=== PATIENT | male | born 1960 | race Caucasian/White ===

== ENCOUNTER → 2017-07-26 11:39 | Outpatient (POV) | payer OTHER, SELFPAY | PROVIDERS: Family Provider Internal Medicine Adolescent Medicine; PCP Internal Medicine Adolescent Medicine; Visit Provider Internal Medicine | DX: Z00.00 Encounter for general adult medical examination without abnormal findings (principal) ==

== ENCOUNTER → 2017-09-27 08:38 | Outpatient (REF) | payer OTHER, SELFPAY ==
[2017-09-27 13:21] LABS: Basophils # 0.1 K/mm3 (0-0.2); Basophils % 0.6 % (0.1-2.0); Eosinophils # 0.2 K/mm3 (0.0-0.4); Eosinophils % 1.8 % (0.1-12.0); Hematocrit 45.3 % (42.0-52.0); Hemoglobin 14.7 g/dL (14.1-18.0); Lymphocytes # 1.9 K/mm3 (0.7-4.5); Lymphocytes % 23.3 K/mm3 (10-50); Mean Corpuscular HGB Conc 32.5 g/dL (31.8-35.4); Mean Corpuscular Hemoglobin 28.9 pg (27.0-31.2); Mean Corpuscular Volume 89.1 fl (80-94); Mean Platelet Volume 9.2 fl (7.4-10.4); Monocytes # 0.6 K/mm3 (0.1-1.0); Neutrophils # 5.6 K/mm3 (1.8-7.8); Neutrophils % 67.4 % (37.0-80.0); Platelet Count 238 K/mm3 (142-424); Red Blood Count 5.09 M/mm3 (4.60-6.20); Red Cell Distribution Width 13.4 % (11.5-17.5); White Blood Count 8.3 K/mm3 (4.8-10.8)
[2017-09-27 14:12] LABS: Alanine Aminotransferase 44 U/L (12-78); Albumin Level 3.8 gm/dL (3.4-5.0); Albumin/Globulin Ratio 1.1 (1.1-1.8); Alkaline Phosphatase 92 U/L (46-116); Aspartate Amino Transferase 23 U/L (15-37); Bilirubin,Total 0.2 mg/dL (0.2-1.0); Blood Urea Nitrogen 23 mg/dL (7-18); Calcium 9.8 mg/dL (8.5-10.1); Carbon Dioxide 27 mmol/L (21.0-32.0); Chloride 105 mmol/L (98-107); Chol/HDL Ratio 4.9 (1-3.5); Cholesterol 205 mg/dL (140-200); Creatinine,Serum 1.16 mg/dL (0.70-1.30); Estimated Glomerular Filt Rate 65 ml/min (>60); Free T4 (Free Thyroxine) 0.95 ng/dl (0.76-1.46); GFR (African American) 79 ML/MIN (>60); Globulin 3.5 gm/dl (1.3-3.2); Glucose 91 mg/dL (74-106); HDL Cholesterol 42 mg/dL (27-67); LDL Cholesterol 134 mg/dL (0-130); Sodium 143 mmol/L (136-145); Total Protein,Serum 7.3 gm/dL (6.4-8.2); Triglycerides 143 mg/dL (30-200); VLDL Cholesterol 29 mg/dL (0-40)
[2017-09-29 06:23] LABS: PSA, Free 0.05 ng/mL; Prostate Specific Ag 0.1 ng/mL (0.0-4.0); Vitamin D 25 Hydroxy 12.4 ng/mL (30.0-100.0)
== END ==
LOC: LAB 08:38
PROVIDERS: Visit Provider Nurse Practitioner Family
DX: R60.1 Generalized edema (principal); R06.02 Shortness of breath; R53.83 Other fatigue
CPT/HCPCS: 80053; 80061; 82652; 83880; 84153; 84154; 84439; 84443; 85025

== ENCOUNTER → 2017-10-06 13:01 | Outpatient (CLI) | payer OTHER, SELFPAY ==
--- NOTE | 2017-10-06 13:06 | CA_ITS ---
PROCEDURE: 2-D M-mode and color Doppler study INDICATIONS FOR THE TEST: Chest pain COPD Heart Murmur Tobacco SmokingEX Palpitations Fatigue Syncope EdemaX Hypertension Diabetes Mellitus Rheumatic Fever SOBXDOEXObesityXHyperlipidemia Family History HD Additional History CHF PATIENT INFORMATION HEIGHT: 65 WEIGHT:245 GENDER: Male B/P:140/70 2-D/M-MODE INTERPRETATION: 2-D MEASUREMENTS OBSERVED VALUES IN CMS Right Ventricular Dimension (RVDd) 1.6 Interventricular Septum (Thickness)(IVsd) 1.0 Left Ventricular Internal Dimensions(LVIDd) 4.6 Left Ventricular Posterior Wall (Thickness)(LVPWd) 1.2 Aortic Root 3.2 Aortic Cusp Separation 1.9 Left Atrial Dimensions (LAD) 4.3 2D 1. Left Atrium is mildly enlarged, left ventricle is normal size, left ventricle wall thickness is upper limit of the normal, visually estimated ejection fraction 55-60% with no obvious regional wall motion abnormality. 2. The right atrium and right ventricle are normal size and contractility. 3. The aortic valve is minimally thickened and fibrosed. 4. The mitral and tricuspid valve leaflets are minimally thickened. 5. The pulmonic valve is poorly visualized. 6. No significant pericardial effusion noted. DOPPLER INTERROGATION: Doppler interrogation of the aortic, mitral and tricuspid valvular presence of mild mitral and tricuspid regurgitation, tricuspid regurgitant jet velocity insufficient for calculation of the right ventricular systolic pressure, grade 1 diastolic dysfunction seen without tissue Doppler evidence of raised left atrial pressure. CONCLUSION: 1. Mildly enlarged left atrium, normal left ventricular size, visually estimated ejection fraction 55-60% with no obvious regional wall motion abnormality, grade 1 diastolic dysfunction seen without tissue Doppler evidence of raised left atrial pressure. 2. Mild mitral and tricuspid regurgitation 3. No significant pericardial effusion noted.
[2017-10-06 15:06] LABS: Anion Gap 15.1 mEq/L (5-15); Blood Urea Nitrogen 21 mg/dL (7-18); Carbon Dioxide 27 mmol/L (21.0-32.0); Chloride 101 mmol/L (98-107); Creatinine,Serum 1.23 mg/dL (0.70-1.30); Estimated Glomerular Filt Rate 61 ml/min (>60); GFR (African American) 73 ML/MIN (>60); Glucose 103 mg/dL (74-106); Potassium 4.1 mmoL/L (3.5-5.1); Sodium 139 mmol/L (136-145)
== END ==
PROVIDERS: Family Provider Internal Medicine Adolescent Medicine; PCP Nurse Practitioner Family; Visit Provider Internal Medicine Cardiovascular Disease
DX: I10 Essential (primary) hypertension (principal)
CPT/HCPCS: 36415; 80048; 93306

== ENCOUNTER → 2017-10-20 09:31 | Outpatient (CLI) | payer OTHER, SELFPAY ==
[2017-10-20 10:15] LABS: Anion Gap 15.9 mEq/L (5-15); Blood Urea Nitrogen 28 mg/dL (7-18); Carbon Dioxide 24 mmol/L (21.0-32.0); Chloride 102 mmol/L (98-107); Creatinine,Serum 1.36 mg/dL (0.70-1.30); Estimated Glomerular Filt Rate 54 ml/min (>60); GFR (African American) 65 ML/MIN (>60); Glucose 138 mg/dL (74-106); Potassium 3.9 mmoL/L (3.5-5.1); Sodium 138 mmol/L (136-145)
== END ==
PROVIDERS: Family Provider Internal Medicine Adolescent Medicine; PCP Nurse Practitioner Family; Visit Provider Internal Medicine Cardiovascular Disease
DX: I50.20 Unspecified systolic (congestive) heart failure (principal); I10 Essential (primary) hypertension; R60.9 Edema, unspecified; R06.00 Dyspnea, unspecified; F17.200 Nicotine dependence, unspecified, uncomplicated
CPT/HCPCS: 36415; 80048

== ENCOUNTER → 2017-10-27 09:20 | Outpatient (CLI) | payer OTHER, SELFPAY ==
[2017-10-27 10:25] LABS: Anion Gap 15.5 mEq/L (5-15); Blood Urea Nitrogen 33 mg/dL (7-18); Calcium 9.4 mg/dL (8.5-10.1); Carbon Dioxide 27 mmol/L (21.0-32.0); Chloride 104 mmol/L (98-107); Creatinine,Serum 1.41 mg/dL (0.70-1.30); Estimated Glomerular Filt Rate 52 ml/min (>60); GFR (African American) 63 ML/MIN (>60); Glucose 115 mg/dL (74-106); Potassium 4.5 mmoL/L (3.5-5.1); Sodium 142 mmol/L (136-145)
== END ==
PROVIDERS: Visit Provider Physician Assistant
DX: I50.20 Unspecified systolic (congestive) heart failure (principal); R06.00 Dyspnea, unspecified; R60.9 Edema, unspecified; F17.200 Nicotine dependence, unspecified, uncomplicated
CPT/HCPCS: 36415; 80048

== ENCOUNTER → 2017-11-03 09:08 | Outpatient (CLI) | payer OTHER, SELFPAY ==
[2017-11-03 10:24] LABS: Anion Gap 12.5 mEq/L (5-15); Blood Urea Nitrogen 29 mg/dL (7-18); Calcium 9.2 mg/dL (8.5-10.1); Carbon Dioxide 28 mmol/L (21.0-32.0); Chloride 104 mmol/L (98-107); Creatinine,Serum 1.31 mg/dL (0.70-1.30); Estimated Glomerular Filt Rate 56 ml/min (>60); GFR (African American) 68 ML/MIN (>60); Glucose 105 mg/dL (74-106); Potassium 4.5 mmoL/L (3.5-5.1); Sodium 140 mmol/L (136-145)
== END ==
PROVIDERS: Visit Provider Physician Assistant
DX: R06.00 Dyspnea, unspecified (principal); R60.9 Edema, unspecified; I50.20 Unspecified systolic (congestive) heart failure
CPT/HCPCS: 36415; 80048

== ENCOUNTER → 2018-01-24 11:23 | Outpatient (POV) | payer OTHER, SELFPAY | PROVIDERS: Family Provider Internal Medicine Adolescent Medicine; PCP Nurse Practitioner Family; Visit Provider Internal Medicine | DX: Z00.00 Encounter for general adult medical examination without abnormal findings (principal) ==

== ENCOUNTER → 2018-02-23 09:39 | Outpatient (CLI) | payer OTHER, SELFPAY ==
[2018-02-23 10:19] LABS: Anion Gap 12.5 mEq/L (5-15); Blood Urea Nitrogen 17 mg/dL (7-18); Calcium 9.2 mg/dL (8.5-10.1); Carbon Dioxide 29 mmol/L (21.0-32.0); Chloride 105 mmol/L (98-107); Creatinine,Serum 1.22 mg/dL (0.70-1.30); Estimated Glomerular Filt Rate 61 ml/min (>60); GFR (African American) 74 ML/MIN (>60); Glucose 98 mg/dL (74-106); Potassium 4.5 mmoL/L (3.5-5.1); Sodium 142 mmol/L (136-145)
== END ==
PROVIDERS: PCP Nurse Practitioner Family; Visit Provider Urology
DX: I50.22 Chronic systolic (congestive) heart failure (principal); R06.09 Other forms of dyspnea; R60.0 Localized edema
CPT/HCPCS: 36415; 80048

== ENCOUNTER → 2018-02-28 13:05 | Outpatient (CLI) | payer OTHER, SELFPAY ==
--- NOTE | 2018-02-28 14:26 | CT_ITS ---
CT chest wo con HISTORY: Dyspnea, ITS.REASON: DYSPNEA, PLEURAL PLAQUE WITH PRESENCE OF ASBESTOS ORDERING PHYSICIAN: Ankur Warren MD PATIENT AGE: 57 years COMPARISON: 08/25/2016 Technique: Axial images obtained with sagittal and coronal reformats. All CT scans at the facility use one or more dose reduction, viz: automated exposure control, ma/kV adjustment per patient size (including targeted exams where dose is matched to indication, i.e. head), or iterative reconstruction technique. FINDINGS: Scattered small nodes present in the mediastinum not significantly changed. The largest node is in the right paratracheal region measuring 1.5 x 1.1 cm. There is diffuse coarsening of the bronchovascular markings with scattered areas of fibrosis with dense calcified pleural plaque in the right lung base posteriorly associated with underlying parenchymal fibrosis/scarring not significantly changed. Calcified granuloma is present in the superior segment of the left lower lobe. No effusions. Degenerative changes once again noted in the thoracic spine. No central obstructing lesions. There is a small area of outpouching of the right mainstem bronchus inferiorly just proximal to the mainstem bronchus bifurcation. This measures approximately 1 cm and is not significantly changed. There is bilateral gynecomastia. Upper abdominal images show opacities within the gallbladder consistent with cholelithiasis and/or sludge. IMPRESSION: 1. Overall stable CT appearance of the chest. No change in the prominent calcified pleural plaque with associated scarring with chronic interstitial changes 2. No change mildly prominent mediastinal lymph nodes. 3. Small bronchial diverticulum on the right at the distal and inferior aspect of the right mainstem bronchus. 4. Cholelithiasis
[2018-02-28 16:25] VITALS: BP 150/85; BP 160/95; PULSE 107; PULSE 93; RESP 18; RESP 20; O2SAT 94; O2SAT 95
[2018-02-28 16:28] VITALS: PULSE 93; PULSE 95
== END ==
PROVIDERS: Family Provider Internal Medicine Adolescent Medicine; PCP Nurse Practitioner Family; Visit Provider Internal Medicine
DX: R06.02 Shortness of breath (principal); R91.8 Other nonspecific abnormal finding of lung field; J42 Unspecified chronic bronchitis; J92.0 Pleural plaque with presence of asbestos
CPT/HCPCS: 71250; 94060; 94618; 94640; 94727; 94729

== ENCOUNTER → 2018-07-18 08:58 | Outpatient (POV) | payer OTHER, SELFPAY | PROVIDERS: Visit Provider Internal Medicine | DX: Z00.00 Encounter for general adult medical examination without abnormal findings (principal) ==

== ENCOUNTER → 2018-08-01 10:01 | Outpatient (CLI) | payer OTHER, SELFPAY ==
[2018-08-01 14:51] LABS: Anion Gap 15.3 mEq/L (5-15); Blood Urea Nitrogen 24 mg/dL (7-18); Calcium 9.9 mg/dL (8.5-10.1); Carbon Dioxide 28 mmol/L (21.0-32.0); Chloride 96 mmol/L (98-107); Creatinine,Serum 1.24 mg/dL (0.70-1.30); Estimated Glomerular Filt Rate 60 ml/min (>60); GFR (African American) 72 ML/MIN (>60); Glucose 135 mg/dL (74-106); Potassium 4.3 mmoL/L (3.5-5.1); Sodium 135 mmol/L (136-145)
== END ==
PROVIDERS: Nurse Practitioner Family; Visit Provider Internal Medicine
DX: I10 Essential (primary) hypertension (principal); I25.10 Atherosclerotic heart disease of native coronary artery without angina pectoris; I50.20 Unspecified systolic (congestive) heart failure; R06.00 Dyspnea, unspecified
CPT/HCPCS: 36415; 80048

== ENCOUNTER → 2018-08-15 10:00 | Outpatient (CLI) | payer OTHER, SELFPAY ==
[2018-08-15 10:39] LABS: Basophils % 0.4 % (0.1-2.0); Eosinophils # 0.2 K/mm3 (0.0-0.4); Hematocrit 42.1 % (42.0-52.0); Hemoglobin 13.9 g/dL (14.1-18.0); Lymphocytes # 2.3 K/mm3 (0.7-4.5); Lymphocytes % 24.2 % (10-50); Mean Corpuscular Hemoglobin 29.2 pg (27.0-31.2); Mean Corpuscular Volume 88.7 fl (80-94); Mean Platelet Volume 8.4 fl (7.4-10.4); Monocytes # 0.6 K/mm3 (0.1-1.0); Monocytes % 5.7 % (1.7-9.3); Neutrophils # 6.5 K/mm3 (1.8-7.8); Neutrophils % 67.8 % (37.0-80.0); Platelet Count 252 K/mm3 (142-424); Red Blood Count 4.74 M/mm3 (4.60-6.20); Red Cell Distribution Width 13.5 % (11.5-17.5); White Blood Count 9.7 K/mm3 (4.8-10.8)
[2018-08-15 12:25] LABS: Anion Gap 14.5 mEq/L (5-15); Blood Urea Nitrogen 21 mg/dL (7-18); Calcium 9.4 mg/dL (8.5-10.1); Carbon Dioxide 25 mmol/L (21.0-32.0); Chloride 104 mmol/L (98-107); Creatinine,Serum 1.14 mg/dL (0.70-1.30); Estimated Glomerular Filt Rate 66 ml/min (>60); GFR (African American) 80 ML/MIN (>60); Glucose 111 mg/dL (74-106); Potassium 4.5 mmoL/L (3.5-5.1); Sodium 139 mmol/L (136-145)
== END ==
PROVIDERS: PCP Emergency Medicine; Visit Provider Nurse Practitioner Family
DX: I25.10 Atherosclerotic heart disease of native coronary artery without angina pectoris (principal); R06.00 Dyspnea, unspecified; R06.02 Shortness of breath; R25.2 Cramp and spasm
CPT/HCPCS: 36415; 80048; 83880; 85025

== ENCOUNTER → 2018-09-13 06:20 | Outpatient (CLI) | payer OTHER, SELFPAY ==
--- NOTE | 2018-09-13 06:22 | CA_ITS ---
PROCEDURE: 2-D M-mode and color Doppler study INDICATIONS FOR THE TEST: Chest painX COPDX Heart Murmur Tobacco SmokingEX Palpitations Fatigue Syncope Edema Hypertension Diabetes Mellitus Rheumatic Fever SOBXDOEXObesityXHyperlipidemiaX Family History HD Additional History PATIENT INFORMATION HEIGHT: 65 WEIGHT:254 GENDER: Male B/P:143/83 2-D/M-MODE INTERPRETATION: 2-D MEASUREMENTS OBSERVED VALUES IN CMS Right Ventricular Dimension (RVDd) 2.0 Interventricular Septum (Thickness)(IVsd) 1.1 Left Ventricular Internal Dimensions(LVIDd) 3.8 Left Ventricular Posterior Wall (Thickness)(LVPWd) 1.1 Aortic Root 3.7 Aortic Cusp Separation 2.1 Left Atrial Dimensions (LAD) 3.3 2D 1. Left atrium is mildly enlarged, left ventricle is normal size, mild concentric left ventricular hypertrophy, visually estimated ejection fraction 55% with no regional wall motion abnormality. 2. The right atrium and right ventricle are mildly enlarged with normal contractility. 3. The aortic valve is minimally thickened and fibrosed. 4. The mitral and tricuspid valve are grossly normal. 5. The pulmonic valve is poorly present. 6. No significant pericardial effusion noted. DOPPLER INTERROGATION: Doppler interrogation of the aortic, mitral and tricuspid valvular presence of mild mitral and tricuspid regurgitation, tricuspid regurgitation jet velocity is inadequate for calculation of the right ventricular systolic pressure, grade 1 diastolic dysfunction seen with tissue Doppler evidence of raised left atrial pressure. CONCLUSION: 1. Mild biatrial enlargement, normal left ventricular size, mild concentric left ventricular hypertrophy, visually estimated ejection fraction 55% with no regional wall motion abnormality, grade 1 diastolic dysfunction seen with tissue Doppler evidence of raised left atrial pressure. 2. Mildly enlarged right ventricle with normal contractility. 3. Mild mitral and tricuspid regurgitation 4. No significant pericardial effusion noted.
--- NOTE | 2018-09-13 06:24 | NM_ITS ---
CARDIOLITE SPECT MYOCARDIAL PERFUSION LEXISCAN, REST AND STRESS: [facility] REVIEW QGS EF AND WALL MOTION EVALUATION: QPS - PERFUSION EVALUATION HISTORY: Chest pain, SOB, Family history DOSE: 10.06 mCi technetium 99m mibi intravenously at rest followed by 32.9 mCi technetium 99m mibi following the intravenous ministration of 0.4 mg of Lexiscan. Resting blood pressure is 132/72. Stress blood pressure 112/66. FINDINGS: Ejection fraction is calculated to be 72%. Uniform myocardial activity at both stress and rest gated images calculated ejection fraction of 72% with normal wall motion IMPRESSION: No scintigraphic evidence of Lexiscan-induced myocardial ischemia normal ejection fraction wall motion
--- NOTE | 2018-09-13 08:09 | HMH.ITSHM ---
Current Home Medications as stated by this patient Rony Vargas or senior sales representative. []SPIRONOLACTONE OMEPRAZOLE FUROSEMIDE ALFOZOSIN
== END ==
PROVIDERS: PCP Emergency Medicine; Visit Provider Internal Medicine
DX: I25.10 Atherosclerotic heart disease of native coronary artery without angina pectoris (principal); R06.00 Dyspnea, unspecified; R06.01 Orthopnea; R07.89 Other chest pain
CPT/HCPCS: 78452; 93017; 93306; A9502; J2785

== ENCOUNTER → 2018-09-20 11:44 | Outpatient (CLI) | payer OTHER, SELFPAY ==
[2018-09-20 12:43] LABS: Alanine Aminotransferase 46 U/L (12-78); Albumin Level 3.7 gm/dL (3.4-5.0); Alkaline Phosphatase 101 U/L (46-116); Aspartate Amino Transferase 22 U/L (15-37); Bilirubin,Direct 0.1 mg/dL (0.0-0.2); Bilirubin,Indirect 0.3 mg/dL (0.0-0.9); Bilirubin,Total 0.4 mg/dL (0.2-1.0); Chol/HDL Ratio 5.1 (1-3.5); Cholesterol 169 mg/dL (140-200); HDL Cholesterol 33 mg/dL (27-67); LDL Cholesterol 106 mg/dL (0-130); Total Protein,Serum 7.2 gm/dL (6.4-8.2); Triglycerides 151 mg/dL (30-200); VLDL Cholesterol 30 mg/dL (0-40)
== END ==
PROVIDERS: Visit Provider Urology
DX: I10 Essential (primary) hypertension (principal); I50.22 Chronic systolic (congestive) heart failure; R06.02 Shortness of breath; R60.0 Localized edema; F17.200 Nicotine dependence, unspecified, uncomplicated
CPT/HCPCS: 36415; 80061; 80076

== ENCOUNTER → 2019-01-09 10:35 | Outpatient (POV) | payer OTHER, SELFPAY | PROVIDERS: Visit Provider Internal Medicine | DX: Z00.00 Encounter for general adult medical examination without abnormal findings (principal) ==

== ENCOUNTER → 2019-01-16 12:03 | Outpatient (CLI) | payer OTHER, SELFPAY ==
--- NOTE | 2019-01-16 12:13 | XR_ITS ---
PROCEDURE: XR CHEST 2V CLINICAL HISTORY: s Shortness of breath COMPARISON: CHESTWO CT chest wo con from 02/28/2018 FINDINGS: The cardiomediastinal silhouette and pulmonary vascularity are within normal limits. There is consolidation in the right lower lobe consistent with pneumonia with some chronic change in the right lower lobe is well. Calcified granuloma is present in the left upper lobe. No acute bony abnormalities. IMPRESSION: Right lower lobe pneumonia Dictated by: Pablito Dailey MD 01/16/2019 12:39 Signed by: <Electronically signed by Pablito Dailey MD in [place]> 01/16/2019 12:39
[2019-01-16 13:33] LABS: Anion Gap 15.9 mEq/L (5-15); Blood Urea Nitrogen 24 mg/dL (7-18); Calcium 9.5 mg/dL (8.5-10.1); Carbon Dioxide 26 mmol/L (21.0-32.0); Chloride 96 mmol/L (98-107); Creatinine,Serum 1.33 mg/dL (0.70-1.30); Estimated Glomerular Filt Rate 55 ml/min (>60); GFR (African American) 67 ML/MIN (>60); Glucose 314 mg/dL (74-106); Potassium 3.9 mmoL/L (3.5-5.1); Sodium 134 mmol/L (136-145)
== END ==
PROVIDERS: PCP Emergency Medicine; Visit Provider Urology
DX: R00.0 Tachycardia, unspecified (principal); R06.00 Dyspnea, unspecified; R60.9 Edema, unspecified; I25.10 Atherosclerotic heart disease of native coronary artery without angina pectoris
CPT/HCPCS: 36415; 71046; 80048; 83880

== ENCOUNTER → 2019-03-08 09:46 | Outpatient (CLI) | payer OTHER, SELFPAY ==
[2019-03-08 12:00] LABS: Prostate Specific Ag Screen 0.2 ng/mL (0.0-4.0)
== END ==
PROVIDERS: Visit Provider Urology
DX: Z12.5 Encounter for screening for malignant neoplasm of prostate (principal)
CPT/HCPCS: 36415; G0103

== ENCOUNTER → 2019-03-12 13:25 | Outpatient (CLI) | payer OTHER, SELFPAY ==
[2019-03-12 13:39] LABS: Basophils % 0.4 % (0.1-2.0); Eosinophils # 0.2 K/mm3 (0.0-0.4); Eosinophils % 2.7 % (0.1-12.0); Hematocrit 41.9 % (42.0-52.0); Hemoglobin 13.8 g/dL (14.1-18.0); Lymphocytes # 1.9 K/mm3 (0.7-4.5); Lymphocytes % 23.1 % (10-50); Mean Corpuscular HGB Conc 32.9 g/dL (31.8-35.4); Mean Corpuscular Hemoglobin 29.4 pg (27.0-31.2); Mean Corpuscular Volume 89.3 fl (80-94); Monocytes # 0.6 K/mm3 (0.1-1.0); Monocytes % 7.2 % (1.7-9.3); Neutrophils # 5.4 K/mm3 (1.8-7.8); Neutrophils % 66.7 % (37.0-80.0); Platelet Count 242 K/mm3 (142-424); Red Blood Count 4.69 M/mm3 (4.60-6.20); Red Cell Distribution Width 12.9 % (11.5-17.5); White Blood Count 8.1 K/mm3 (4.8-10.8)
[2019-03-12 14:20] LABS: Alanine Aminotransferase 34 U/L (12-78); Albumin Level 3.7 gm/dL (3.4-5.0); Albumin/Globulin Ratio 1.2 (1.1-1.8); Alkaline Phosphatase 137 U/L (46-116); Anion Gap 17.2 mEq/L (5-15); Aspartate Amino Transferase 21 U/L (15-37); Bilirubin,Total 0.3 mg/dL (0.2-1.0); Blood Urea Nitrogen 21 mg/dL (7-18); Calcium 9.4 mg/dL (8.5-10.1); Carbon Dioxide 24 mmol/L (21.0-32.0); Chloride 96 mmol/L (98-107); Chol/HDL Ratio 4.1 (1-3.5); Cholesterol 127 mg/dL (140-200); Creatinine,Serum 1.24 mg/dL (0.70-1.30); Estimated Glomerular Filt Rate 60 ml/min (>60); GFR (African American) 72 ML/MIN (>60); Globulin 3.2 gm/dl (1.3-3.2); HDL Cholesterol 31 mg/dL (27-67); LDL Cholesterol 62 mg/dL (0-130); Potassium 4.2 mmoL/L (3.5-5.1); Sodium 133 mmol/L (136-145); T4 (Thyroxine) 9.2 ug/dl (4.7-13.3); Thyroid Stimulating Hormone 3.14 uIU/ml (0.358-3.740); Total Protein,Serum 6.9 gm/dL (6.4-8.2); Triglycerides 170 mg/dL (30-200); VLDL Cholesterol 34 mg/dL (0-40)
[2019-03-12 14:30] LABS: Glucose 405 mg/dL (74-106)
[2019-03-12 14:35] LABS: Hemoglobin A1C 11.7 % (0.0-7.0)
[2019-03-14 08:21] LABS: Vitamin D 25 Hydroxy 37.6 ng/mL (30.0-100.0)
== END ==
PROVIDERS: Visit Provider Nurse Practitioner Family
DX: R68.2 Dry mouth, unspecified (principal); R73.9 Hyperglycemia, unspecified
CPT/HCPCS: 80053; 80061; 82652; 83036; 84436; 84443; 85025

== ENCOUNTER → 2019-03-16 14:21 | Outpatient (CLI) | payer OTHER, SELFPAY ==
[2019-03-18 06:47] LABS: Creatinine, Urine 53.3 mg/dL (Not Estab.); Microalbumin, Urine 37.8 ug/mL (Not Estab.)
== END ==
PROVIDERS: Visit Provider Nurse Practitioner Family
DX: E11.9 Type 2 diabetes mellitus without complications (principal); Z79.84 Long term (current) use of oral hypoglycemic drugs
CPT/HCPCS: 82043; 82570

== ENCOUNTER → 2019-03-23 08:24 | Outpatient (CLI) | payer OTHER, SELFPAY ==
--- NOTE | 2019-03-23 08:27 | CT_ITS ---
PROCEDURE: CT LUNG SCREENING CLINICAL INDICATION: H/O NICOTINE DEPENDENCE Nine pack-year smoking history, asymptomatic for lung cancer COMPARISON: CHESTWO CT chest wo con from 02/28/2018 TECHNIQUE: The exam was performed on a GE Light Speed [address] scanner using 2.90 mGy CTDI. A low dose helical CT CHEST was performed on a multi-detector scanner. All CT scans at the facility use one or more dose reduction, viz: automated exposure control, ma/kV adjustment per patient size (including targeted exams where dose is matched to indication, i.e. head), or iterative reconstruction technique. The LDCT was performed in a facility that meets the criteria for the screening program. Data regarding this exam was submitted to ACR which is an approved registry. The order for this exam indicates that it came as a result of a lung cancer screening counseling shard decision-making visit that included all the elements required of such a visit including smoking cessation. The radiologist interpreting this exam meets the CMS criteria for the LDCT lung cancer screening program. The exam is reported using the Lung-RADS classification scale and reported to the ACR registry. NOTE: This study was performed for the specific purposes of lung cancer screening and is not an alternative to diagnostic chest CT. RADIATION DOSE: CTDI vol(CT dose Index-volume) = 2.90mG DLP (Dose Length Product) = 96.53 mGcm FINDINGS: COPD with evidence of old granulomatous disease and prominent interstitium. There is calcification of the lower lobe posteriorly on the right inferiorly with scarring in the right lung base. Calcified granuloma is present in the left upper lobe. Small bronchial diverticulum of the bronchus intermedius on the right unchanged. OTHER FINDINGS: Small mediastinal lymph nodes are present not significantly changed IMPRESSION: Lung rads category 2 benign findings. No significant change. No change right-sided pleural calcification with scarring and mild prominence of interstitium the COPD. Recommend annual LDCT screening Dictated by: Pablito Dailey MD 03/24/2019 09:27 Electronically signed by Pablito Dailey MD in [place] 04/01/2019 07:24
== END ==
PROVIDERS: PCP Emergency Medicine; Visit Provider Internal Medicine
DX: Z87.891 Personal history of nicotine dependence (principal); Z12.2 Encounter for screening for malignant neoplasm of respiratory organs

== ENCOUNTER → 2019-03-27 08:48 | Outpatient (CLI) | payer OTHER, SELFPAY ==
[2019-03-27 12:09] VITALS: BMI 40.6
[2019-03-27 13:04] VITALS: BMI 40.6
--- NOTE | 2019-03-27 14:18 | DIET.NUTRFU ---
Outpatient nutritional assessment completed by Evelina has been completed under my supervision.
== END ==
PROVIDERS: PCP Nurse Practitioner Family; Visit Provider Nurse Practitioner Family
DX: Z71.3 Dietary counseling and surveillance (principal); E11.9 Type 2 diabetes mellitus without complications
CPT/HCPCS: 97802

== ENCOUNTER → 2019-05-18 09:45 | Outpatient (CLI) | payer OTHER, SELFPAY | PROVIDERS: PCP Emergency Medicine; Visit Provider Nurse Practitioner Family | DX: R06.02 Shortness of breath (principal) | CPT/HCPCS: 94060; 94618 ==

== ENCOUNTER → 2019-06-04 08:00 | Outpatient (CLI) | payer OTHER, SELFPAY ==
--- NOTE | 2019-06-04 08:01 | CA_ITS ---
APPROVED REPORT Silo Painter: LAURIE Laterality: Bilateral Study Quality: Good Indications: dizziness HTN HLP DM EX SMOKER Doppler Spectral Velocity Analysis dICA (R) 87.20/30.80 cm/s dICA (L) 121.50/33.90 cm/s Ed (R) 57.40/19.50 cm/s Ed (L) 110.30/46.00 cm/s pICA (R) 69.00/15.00 cm/s pICA (L) 79.30/26.90 cm/s dCCA (R) 82.20/21.50 cm/s dCCA (L) 66.70/22.60 cm/s pCCA (R) 59.90/11.50 cm/s pCCA (L) 94.40/24.60 cm/s Vert (R) 52.30/11.30 cm/s Vert (L) 67.50/26.00 cm/s ICA/CCA 1.06 ICA/CCA 1.82 Findings Duplex evaluation demonstrates stenosis of the right proximal internal carotid artery <20% with PSV <140 cm/sec, EDV <100 cm/sec, and IC/CC Ratio <4.0.The left carotid arterial system appeared to be normal without stenosis of the bulb or internal carotid artery. Antegrade flow seen bilateral vertebral arteries. Conclusion No increased velocities to suggest hemodynamically significant stenosis in either internal carotid artery. Electronically signed by : Pablito Dailey MD 06/04/2019 16:44:31
--- NOTE | 2019-06-04 08:01 | US_ITS ---
APPROVED REPORT Exam Type: Lower Extremity Segmental Pressures Youth Director: Radha Castellanos RDCS Indications Claudication: History of Smoking Risk Factors Hypertension Diabetes History of Smoking Pressures/Indices Right Indices Left Indices Brachial 108.00 mmHg Brachial 100.00 mmHg High Thigh 132.00 mmHg High Thigh 119.00 mmHg Calf 121.00 mmHg Calf 114.00 mmHg Ankle(PT) 124.00 mmHg Ankle(PT) 102.00 mmHg Ankle(DP) 108.00 mmHg Ankle(DP) 112.00 mmHg Digit 89.00 mmHg Digit 103.00 mmHg Findings R ANNIA 1.2 L ANNIA .9 R TBI .82 L TBI 1.0 NORMAL PULSES AND WAVEFORMS Conclusion Normal appearing resting noninvasive lower extremity arterial study. Electronically signed by : Pablito Dailey MD 06/04/2019 16:43:40
== END ==
PROVIDERS: PCP Emergency Medicine; Visit Provider Urology
DX: I73.9 Peripheral vascular disease, unspecified (principal); I25.10 Atherosclerotic heart disease of native coronary artery without angina pectoris; R42 Dizziness and giddiness
CPT/HCPCS: 93880; 93923

== ENCOUNTER → 2019-06-14 14:19 | Outpatient (CLI) | payer OTHER, SELFPAY ==
[2019-06-14 14:47] LABS: Basophils % 0.4 % (0.1-2.0); Eosinophils # 0.2 K/mm3 (0.0-0.4); Eosinophils % 1.9 % (0.1-12.0); Hemoglobin 12.7 g/dL (14.1-18.0); Lymphocytes # 2.1 K/mm3 (0.7-4.5); Lymphocytes % 18.9 % (10-50); Mean Corpuscular HGB Conc 31.1 g/dL (31.8-35.4); Mean Corpuscular Hemoglobin 27.7 pg (27.0-31.2); Mean Corpuscular Volume 89.1 fl (80-94); Mean Platelet Volume 9.9 fl (7.4-10.4); Monocytes # 0.5 K/mm3 (0.1-1.0); Monocytes % 4.8 % (1.7-9.3); Neutrophils # 8.4 K/mm3 (1.8-7.8); Platelet Count 315 K/mm3 (142-424); White Blood Count 11.3 K/mm3 (4.8-10.8)
[2019-06-14 15:07] LABS: Alanine Aminotransferase 30 U/L (12-78); Albumin Level 4.1 gm/dL (3.4-5.0); Albumin/Globulin Ratio 1.3 (1.1-1.8); Alkaline Phosphatase 115 U/L (46-116); Anion Gap 17.8 mEq/L (5-15); Aspartate Amino Transferase 16 U/L (15-37); Bilirubin,Total 0.4 mg/dL (0.2-1.0); Blood Urea Nitrogen 33 mg/dL (7-18); Calcium 9.6 mg/dL (8.5-10.1); Carbon Dioxide 24 mmol/L (21.0-32.0); Chloride 103 mmol/L (98-107); Chol/HDL Ratio 3.5 (1-3.5); Cholesterol 112 mg/dL (140-200); Creatinine,Serum 1.26 mg/dL (0.70-1.30); Estimated Glomerular Filt Rate 59 ml/min (>60); GFR (African American) 71 ML/MIN (>60); Globulin 3.1 gm/dl (1.3-3.2); Glucose 132 mg/dL (74-106); HDL Cholesterol 32 mg/dL (27-67); LDL Cholesterol 59 mg/dL (0-130); Potassium 4.8 mmoL/L (3.5-5.1); Sodium 140 mmol/L (136-145); T4 (Thyroxine) 9.7 ug/dl (4.7-13.3); Thyroid Stimulating Hormone 1.62 uIU/ml (0.358-3.740); Total Protein,Serum 7.2 gm/dL (6.4-8.2); Triglycerides 107 mg/dL (30-200); VLDL Cholesterol 21 mg/dL (0-40)
[2019-06-14 15:54] LABS: Hemoglobin A1C 7.1 % (0.0-7.0)
[2019-06-16 09:35] LABS: Vitamin D 25 Hydroxy 34.1 ng/mL (30.0-100.0)
[2019-06-16 09:46] LABS: Microalbumin, Urine <3.0 ug/mL (Not Estab.)
== END ==
PROVIDERS: Visit Provider Nurse Practitioner Family
DX: E11.9 Type 2 diabetes mellitus without complications (principal); Z79.84 Long term (current) use of oral hypoglycemic drugs; Z79.899 Other long term (current) drug therapy
CPT/HCPCS: 80053; 80061; 82043; 82652; 83036; 84436; 84443; 85025

== ENCOUNTER → 2019-06-18 09:53 | Outpatient (CLI) | payer OTHER, SELFPAY | PROVIDERS: PCP Emergency Medicine; Visit Provider Urology | DX: G47.33 Obstructive sleep apnea (adult) (pediatric) (principal); R40.0 Somnolence; R53.83 Other fatigue; R06.02 Shortness of breath; I10 Essential (primary) hypertension | CPT/HCPCS: 95806 ==

== ENCOUNTER → 2019-06-29 09:16 | Outpatient (CLI) | payer OTHER, SELFPAY ==
[2019-06-29 09:21] LABS: Microscopic, Urine URINE MICROSCOPIC (MICROSCOPIC)
[2019-06-29 10:01] LABS: Basophils # 0.1 K/mm3 (0-0.2); Basophils % 0.5 % (0.1-2.0); Eosinophils # 0.3 K/mm3 (0.0-0.4); Eosinophils % 2.5 % (0.1-12.0); Hematocrit 39.8 % (42.0-52.0); Hemoglobin 12.7 g/dL (14.1-18.0); Lymphocytes # 2.2 K/mm3 (0.7-4.5); Lymphocytes % 22.3 % (10-50); Mean Corpuscular Volume 87.7 fl (80-94); Mean Platelet Volume 8.4 fl (7.4-10.4); Monocytes # 0.5 K/mm3 (0.1-1.0); Monocytes % 4.6 % (1.7-9.3); Neutrophils # 6.9 K/mm3 (1.8-7.8); Neutrophils % 70.2 % (37.0-80.0); Platelet Count 297 K/mm3 (142-424); Red Blood Count 4.54 M/mm3 (4.60-6.20); Red Cell Distribution Width 14.3 % (11.5-17.5); White Blood Count 9.8 K/mm3 (4.8-10.8)
[2019-06-29 10:53] LABS: Appearance,Urine CLEAR (Clear); Bilirubin,Urine Negative (Negative); Blood, Urine Negative (Negative); Color,Urine YELLOW (Yellow); Glucose,Urine (UA) Negative (Negative); Ketones,Urine Negative (Negative); Leukocyte Esterase,Urine Negative (Negative); Nitrate,Urine Negative (Negative); Protein,Urine Negative (Negative); Specific Gravity, Urine 1.015 (1.005-1.030); Urobilinogen,Urine 0.2 EU/dl (0.2)
[2019-06-29 10:54] LABS: Creatinine,Urine Random 17 mg/dL (20-320)
[2019-06-29 11:14] LABS: Total Protein,Urine Random 0.9 mg/dL (0.0-11.9)
[2019-06-29 11:17] LABS: Bacteria,Urine Trace /lpf; Squamous Epithelial Cell,Urine Occasional #/hpf (0-5)
[2019-06-29 12:15] LABS: Albumin Level 4.1 gm/dL (3.4-5.0); Anion Gap 16.9 mEq/L (5-15); Blood Urea Nitrogen 34 mg/dL (7-18); Calcium 9.6 mg/dL (8.5-10.1); Carbon Dioxide 25 mmol/L (21.0-32.0); Chloride 102 mmol/L (98-107); Creatinine,Serum 1.28 mg/dL (0.70-1.30); Estimated Glomerular Filt Rate 58 ml/min (>60); GFR (African American) 70 ML/MIN (>60); Glucose 101 mg/dL (74-106); Phosphorous 3.5 mg/dL (2.4-4.9); Potassium 4.9 mmoL/L (3.5-5.1); Sodium 139 mmol/L (136-145)
[2019-06-30 15:32] LABS: Vitamin D 25 Hydroxy 37.2 ng/mL (30.0-100.0)
[2019-07-01 17:43] LABS: Parathyroid Hormone Intact 27 pg/mL (15-65)
== END ==
PROVIDERS: Visit Provider Internal Medicine Nephrology
DX: R80.9 Proteinuria, unspecified (principal)
CPT/HCPCS: 36415; 80069; 81001; 82570; 82652; 83970; 84155; 85025

== ENCOUNTER → 2019-07-02 14:20 | Outpatient (POV) | payer OTHER, SELFPAY | PROVIDERS: Visit Provider Internal Medicine Nephrology | DX: Z00.00 Encounter for general adult medical examination without abnormal findings (principal) ==

== ENCOUNTER → 2020-01-17 13:28 | Outpatient (CLI) | payer OTHER, SELFPAY ==
[2020-01-17 13:32] LABS: Microscopic, Urine URINE MICROSCOPIC (MICROSCOPIC)
[2020-01-17 14:38] LABS: Appearance,Urine CLEAR (Clear); Bilirubin,Urine Negative (Negative); Blood, Urine Negative (Negative); Color,Urine YELLOW (Yellow); Glucose,Urine (UA) Negative (Negative); Ketones,Urine Negative (Negative); Leukocyte Esterase,Urine Negative (Negative); Nitrate,Urine Negative (Negative); Protein,Urine Negative (Negative); Specific Gravity, Urine 1.015 (1.005-1.030); Urobilinogen,Urine 0.2 EU/dl (0.2)
[2020-01-17 14:39] LABS: Basophils # 0.1 K/mm3 (0-0.2); Basophils % 0.5 % (0.1-2.0); Eosinophils # 0.4 K/mm3 (0.0-0.4); Eosinophils % 3.7 % (0.1-12.0); Hematocrit 35.8 % (42.0-52.0); Hemoglobin 12.4 g/dL (14.1-18.0); Lymphocytes # 2.1 K/mm3 (0.7-4.5); Lymphocytes % 20.8 % (10-50); Mean Corpuscular HGB Conc 34.6 g/dL (31.8-35.4); Mean Corpuscular Hemoglobin 30.7 pg (27.0-31.2); Mean Corpuscular Volume 88.7 fl (80-94); Mean Platelet Volume 8.6 fl (7.4-10.4); Monocytes # 0.7 K/mm3 (0.1-1.0); Monocytes % 6.8 % (1.7-9.3); Neutrophils % 68.2 % (37.0-80.0); Platelet Count 249 K/mm3 (142-424); Red Blood Count 4.04 M/mm3 (4.60-6.20); Red Cell Distribution Width 13.3 % (11.5-17.5); White Blood Count 10.2 K/mm3 (4.8-10.8)
[2020-01-17 14:46] LABS: Creatinine,Urine Random 37 mg/dL (Not Estab.)
[2020-01-17 14:58] LABS: Albumin Level 4.3 g/dl (3.5-5.0); Anion Gap 16.7 mEq/L (5-15); Blood Urea Nitrogen 37 mg/dl (9-20); Calcium 9.7 mg/dl (8.4-10.2); Carbon Dioxide 27 mmol/L (22.0-30.0); Chloride 98 mmol/L (98-107); Estimated Glomerular Filt Rate 57 ml/min (>60); GFR (African American) 68 ML/MIN (>60); Glucose 101 mg/dl (74-100); Phosphorous 3.9 mg/dl (2.5-4.5); Potassium 4.7 mmoL/L (3.5-5.1); Sodium 137 mmol/L (136-145)
[2020-01-17 15:48] LABS: Bacteria,Urine Trace /lpf; Squamous Epithelial Cell,Urine Occasional #/hpf (0-5); WBC,Urine Occasional #/hpf (0-3)
== END ==
PROVIDERS: Visit Provider Internal Medicine Nephrology
DX: N18.3 Chronic kidney disease, stage 3 (moderate) (principal)
CPT/HCPCS: 36415; 80069; 81001; 82570; 84155; 85025

== ENCOUNTER → 2020-03-13 09:47 | Outpatient (CLI) | payer OTHER, SELFPAY ==
[2020-03-13 11:38] LABS: Prostate Specific Ag Screen < 0.1 ng/ml (0.0-4.0)
== END ==
PROVIDERS: Visit Provider Urology
DX: Z12.5 Encounter for screening for malignant neoplasm of prostate (principal)
CPT/HCPCS: 36415; G0103

== ENCOUNTER 2020-04-10 12:27 | Emergency (ER) | payer OTHER, SELFPAY ==
[2020-04-10 13:17] VITALS: BP 136/96; PULSE 73; RESP 18; TEMP 37.1; O2SAT 98; BMI 39.9
--- NOTE | 2020-04-10 13:25 | HMH.EDUTC ---
[facility] [place] Impression: Exposure to COVID-19 virus Disposition: Home, Self-Care Condition on Discharge: Good Instructions: Preventing the Spread of Coronavirus Discharge Instructions Additional Instructions: *Monitor Temp, Over the counter Motrin or Tylenol as directed/as needed Tylenol every 4 hours and Motrin every 6 hours (as long as your family doctor has told you that you can take it) for fever or pain. and straight to ER if unable to lower temp less than 101.0 after medication given *Warm salt water gargles may help to soothe the throat *Throat Lozenges *Warm fluids like tea with honey may help to soothe the throat *Sleep elevated *Humidifier/Vaporizer Follow up IMMEDIATELY for new or worsening symptoms or no Noticeable improvement over the next 48-72 hours. 911 for difficulty breathing or swallowing You was tested for today for COVID19 your test result should be back in the next 24-48 hours, you may call to the [facility] later today or tomorrow to see if your test results are back and the result [phone] [facility] hours are 9am-9pm You was given a handout with instructions for Self Quarantine and Self isolation for while you wait on test results and what to do if they are positive If you are positive the Health Dept will be contacting you also Referrals: Ravinder Wilkes MD [Primary Care Provider] - As needed Time of Disposition: 13:29 Medical Decision Making - Mele Inquiry Pt receiving controlled substance: No Mele was queried for this patient: No Vital Signs: 04/10/20 13:17 Temperature 98.8 F Temperature Source Oral Pulse Rate [Radial] 73 Respiratory Rate 18 Blood Pressure [Right Arm] 136/96 H Blood Pressure Mean [Right Arm] 109 Blood Pressure Source [Right Arm] Automatic Cuff Blood Pressure Position [Right Arm] Sitting 02 Sat by Pulse Oximetry 98 Oxygen Delivery Method Room Air Orders (Tests/Meds): ORDERS Category Date Time Status Covid-19 Nasal PCR Sendout [facility] 04/10/20 13:08 Received [facility] [place] - General Stated complaint: headache,possible covid exposure Time Seen by Provider: 04/10/20 13:26 Mode of Arrival: Ambulatory Source of Information: Patient Limitations: No Limitations Description of Symptoms (Recalled from Triage Doc. by RN): COVID TEST HEENT Symptoms (Recalled from RN notes): No Resp Symptoms (Recalled from RN notes): No Skin Symptoms (Recalled from RN notes): No MS Symptoms (Recalled from RN notes): No Functional Status (Recalled from RN notes): WNL - History of Present Illness Provider Complaint: Patient states that he has been having mild headache and runny nose that is clear but has that every year around this time States that step father tested positive for COVID yesterday and he has been around them and they wanted him to come in and get tested Denies any other symtpoms State that he has lung issues and always has a cough that is not new - Related Data Home Medications Medication Instructions Recorded Confirmed albuterol sulfate 90 mcg/actuation 1 puff INHALATION Q4-6H PRN 09/27/17 03/18/20 aerosol inhaler fluticasone furoate 100 1 inh INHALATION Q24H 09/27/17 03/18/20 mcg-vilanterol 25 mcg/dose inhalation powder omeprazole 40 mg capsule,delayed 40 mg PO DAILY 07/26/18 03/18/20 release Alfuzosin HCl [Alfuzosin HCl ER] 10 mg PO DAILY 04/19/19 03/18/20 Blood-Glucose Meter 1 kit .ROUTE .MEDSUPPLY 04/19/19 03/18/20 Lancets [Unistik Pro] 1 kit .ROUTE DIRECTED 04/19/19 03/18/20 bisoprolol fumarate 5 mg tablet 5 mg PO DAILY tab 09/25/19 03/18/20 albuterol sulfate 2.5 mg INHALATION PRN ml 02/18/20 03/18/20 aspirin 81 mg tablet,delayed 81 mg PO DAILY tab 03/26/20 release lisinopril 2.5 mg tablet 2.5 mg PO DAILY tab 03/26/20 Previous Rx's Medication Instructions Recorded atorvastatin 20 mg tablet 20 mg PO DAILY #90 tab 08/03/19 furosemide 40 mg tablet 80 mg PO DAILY #60 tab 03/03/20 spironolactone 50 mg tablet
[2020-04-10 13:35] VITALS: BP 136/96; PULSE 73; RESP 18; TEMP 37.1; O2SAT 98
[2020-04-11 09:54] LABS: Covid-19 Nasal PCR Sendout Lex POSITIVE
== END 2020-04-10 13:35 | disposition home or self-care (01) ==
PROVIDERS: Emergency Provider Nurse Practitioner; PCP Emergency Medicine
DX: U07.1 COVID-19 (principal); J44.9 Chronic obstructive pulmonary disease, unspecified; E11.9 Type 2 diabetes mellitus without complications; I10 Essential (primary) hypertension; E78.5 Hyperlipidemia, unspecified; Z79.899 Other long term (current) drug therapy
CPT/HCPCS: 99201; U0004

== ENCOUNTER 2020-04-21 11:21 | Emergency (ER) | payer OTHER, SELFPAY ==
[2020-04-21 12:00] VITALS: BP 107/67; PULSE 74; RESP 20; TEMP 36.7; O2SAT 97; BMI 38.9
--- NOTE | 2020-04-21 12:11 | HMH.EDUTC ---
[facility] [place]ression: COVID-19 Disposition: Home, Self-Care Condition on Discharge: Good Instructions: Preventing the Spread of Coronavirus Discharge Instructions Additional Instructions: Drink plenty of fluids. Take tylenol for pain or fever. Return if you begin to have difficulty breathing. Follow up with your regular doctor. GO TO THE ER FOR ANY WORSENING SYMPTOMS Referrals: Ravinder Wilkes MD [Primary Care Provider] - Time of Disposition: 12:18 Medical Decision Making - Medical Records Medical records reviewed: No: I reviewed the patient's medical records. - Mele Inquiry Pt receiving controlled substance: No Vital Signs: 04/21/20 12:00 04/21/20 12:24 Temperature 98.1 F 98.1 F Temperature Source Oral Pulse Rate 74 Pulse Rate [Right Brachial] 74 Respiratory Rate 20 20 Blood Pressure 107/67 L Blood Pressure [Right Arm] 107/67 L Blood Pressure Mean [Right Arm] 80 Blood Pressure Source [Right Arm] Automatic Cuff Blood Pressure Position [Right Arm] Sitting 02 Sat by Pulse Oximetry 97 Oxygen Delivery Method Room Air Orders (Tests/Meds): ORDERS Category Date Time Status Covid-19 Nasal PCR Sendout [facility] 04/21/20 12:00 [place] [facility] [place] - General Stated complaint: covid test Time Seen by Provider: 04/21/20 12:11 - History of Present Illness Provider Complaint: He has had covid-19. He has not had any symptoms in the last 3 days or so. He needs a negative test so he can go back to work. - Related Data Home Medications Medication Instructions Recorded Confirmed albuterol sulfate 90 mcg/actuation 1 puff INHALATION Q4-6H PRN 09/27/17 03/18/20 aerosol inhaler fluticasone furoate 100 1 inh INHALATION Q24H 09/27/17 03/18/20 mcg-vilanterol 25 mcg/dose inhalation powder omeprazole 40 mg capsule,delayed 40 mg PO DAILY 07/26/18 03/18/20 release Alfuzosin HCl [Alfuzosin HCl ER] 10 mg PO DAILY 04/19/19 03/18/20 Blood-Glucose Meter 1 kit .ROUTE .MEDSUPPLY 04/19/19 03/18/20 Lancets [Unistik Pro] 1 kit .ROUTE DIRECTED 04/19/19 03/18/20 bisoprolol fumarate 5 mg tablet 5 mg PO DAILY tab 09/25/19 03/18/20 albuterol sulfate 2.5 mg INHALATION PRN ml 02/18/20 03/18/20 aspirin 81 mg tablet,delayed 81 mg PO DAILY tab 03/26/20 release lisinopril 2.5 mg tablet 2.5 mg PO DAILY tab 03/26/20 Previous Rx's Medication Instructions Recorded atorvastatin 20 mg tablet 20 mg PO DAILY #90 tab 08/03/19 furosemide 40 mg tablet 80 mg PO DAILY #60 tab 03/03/20 spironolactone 50 mg tablet 100 mg PO DAILY #60 tab 03/03/20 blood sugar diagnostic See Rx Instructions .ROUTE 03/31/20 .COMPLEX #100 each metformin 500 mg tablet,extended See Rx Instructions .ROUTE 03/31/20 release 24 hr .COMPLEX #180 tab Allergies Allergy/AdvReac Type Severity Reaction Status Date / Time No Known Allergies Allergy Unknown Uncoded 03/26/20 08:52 [facility] History - Hepatitis A Screen Attestation statement:: This patient has been screened for Hepatitis A risk factors. I have reviewed the patient's past medical history: Yes Medical History: Reports:: Asthma, Chronic Obstructive Pulmonary Disease (COPD), Coronary Artery Disease, Diabetes Mellitus Type 2, Gastroesophageal Reflux Disease(GERD), Hyperlipidemia, Hypertension, Migraine Other Medical History: Reports: Other Comment: ENLARGED PROSTATE Laterality Cases: Right: Arthroscopy Shoulder Other Surgeries: Yes: No Previous Surgery, Other Amputation: No Fractures: No Comment: RIGHT SHOULDER ROTATOR CUFF, BACK,WRIST,HIP FRACTURES - Social History Smoking Status: Former smoker Alcohol Intake: never Alcohol Intake Frequency:: other Substance Use Type: marijuana Occupational Status: other Housing: house Household Members: other Family Hx:: Diabetes, Cancer, Stroke ROS Obtained: Yes All systems reviewed & no additional complaints - Constitutional Constitutional: Reports system reviewed and no additi
[2020-04-21 12:24] VITALS: BP 107/67; PULSE 74; RESP 20; TEMP 36.7; O2SAT 97
[2020-04-23 15:23] LABS: Covid-19 Nasal PCR Sendout Lex Positive
--- NOTE | 2020-04-23 16:18 | PC.NURSE ---
PT CALLED AND ASKED ABOUT HIS TEST BEFORE I COULD CALL HIM ADVISED PT TGHAT HE HAD APOSITIVE TEST AND HE WAS UPSET THAT HE WAS STILL POSITIVE.
== END 2020-04-21 12:27 | disposition home or self-care (01) ==
PROVIDERS: Emergency Provider Nurse Practitioner Family; PCP Emergency Medicine
DX: U07.1 COVID-19 (principal); J44.9 Chronic obstructive pulmonary disease, unspecified; I25.10 Atherosclerotic heart disease of native coronary artery without angina pectoris; E11.9 Type 2 diabetes mellitus without complications; K21.9 Gastro-esophageal reflux disease without esophagitis; E78.5 Hyperlipidemia, unspecified; I10 Essential (primary) hypertension; Z79.899 Other long term (current) drug therapy
CPT/HCPCS: 99201; U0004

== ENCOUNTER 2020-05-06 15:35 | Emergency (ER) | payer OTHER, SELFPAY ==
[2020-05-06 15:44] VITALS: BP 138/90; PULSE 79; RESP 18; TEMP 36.6; O2SAT 99; BMI 38.2
--- NOTE | 2020-05-06 15:57 | HMH.EDUTC ---
[facility] [place] Clinical Impression: COVID-19 Disposition: Home, Self-Care Condition on Discharge: Good Instructions: Preventing the Spread of Coronavirus Discharge Instructions Additional Instructions: Drink plenty of fluids. Take tylenol for pain or fever. Return if you begin to have difficulty breathing. Follow up with your regular doctor. GO TO THE ER FOR ANY WORSENING SYMPTOMS Referrals: Ravinder Wilkes MD [Primary Care Provider] - Time of Disposition: 16:01 Medical Decision Making - Medical Records Medical records reviewed: No: I reviewed the patient's medical records. - Mele Inquiry Pt receiving controlled substance: No Vital Signs: 05/06/20 15:44 05/06/20 16:05 Temperature 97.9 F 97.9 F Temperature Source Oral Oral Pulse Rate 79 Pulse Rate [Radial] 79 Respiratory Rate 18 18 Blood Pressure 138/90 Blood Pressure [Right Arm] 138/90 Blood Pressure Mean [Right Arm] 106 Blood Pressure Source Automatic Cuff Blood Pressure Source [Right Arm] Automatic Cuff Blood Pressure Position Sitting Blood Pressure Position [Right Arm] Sitting 02 Sat by Pulse Oximetry 99 Oxygen Delivery Method Room Air Room Air Orders (Tests/Meds): ORDERS Category Date Time Status Covid-19 Nasal PCR ([facility]) Routine Lab 05/06/20 15:40 Received [facility] [place] HPI - General Stated complaint: covid test Time Seen by Provider: 05/06/20 15:58 Mode of Arrival: Ambulatory Source of Information: Patient Limitations: No Limitations Description of Symptoms (Recalled from Triage Doc. by RN): covid test. states he tested positive last month and then retested and it was still positive for he came back in today to be tested again. No symptoms HEENT Symptoms (Recalled from RN notes): No Resp Symptoms (Recalled from RN notes): No Skin Symptoms (Recalled from RN notes): No MS Symptoms (Recalled from RN notes): No Functional Status (Recalled from RN notes): wnl - History of Present Illness Provider Complaint: He is here for a covid test. He denies any symptoms for the past couple of weeks, but he thought that he needed a negative covid test to end his quarentine. - Related Data Home Medications Medication Instructions Recorded Confirmed albuterol sulfate 90 mcg/actuation 1 puff INHALATION Q4-6H PRN 09/27/17 03/18/20 aerosol inhaler fluticasone furoate 100 1 inh INHALATION Q24H 09/27/17 03/18/20 mcg-vilanterol 25 mcg/dose inhalation powder omeprazole 40 mg capsule,delayed 40 mg PO DAILY 07/26/18 03/18/20 release Alfuzosin HCl [Alfuzosin HCl ER] 10 mg PO DAILY 04/19/19 03/18/20 Blood-Glucose Meter 1 kit .ROUTE .MEDSUPPLY 04/19/19 03/18/20 Lancets [Unistik Pro] 1 kit .ROUTE DIRECTED 04/19/19 03/18/20 bisoprolol fumarate 5 mg tablet 5 mg PO DAILY tab 09/25/19 03/18/20 albuterol sulfate 2.5 mg INHALATION PRN ml 02/18/20 03/18/20 aspirin 81 mg tablet,delayed 81 mg PO DAILY tab 03/26/20 release lisinopril 2.5 mg tablet 2.5 mg PO DAILY tab 03/26/20 Previous Rx's Medication Instructions Recorded atorvastatin 20 mg tablet 20 mg PO DAILY #90 tab 08/03/19 furosemide 40 mg tablet 80 mg PO DAILY #60 tab 03/03/20 spironolactone 50 mg tablet 100 mg PO DAILY #60 tab 03/03/20 blood sugar diagnostic See Rx Instructions .ROUTE 03/31/20 .COMPLEX #100 each metformin 500 mg tablet,extended See Rx Instructions .ROUTE 03/31/20 release 24 hr .COMPLEX #180 tab Allergies Allergy/AdvReac Type Severity Reaction Status Date / Time No Known Allergies Allergy Unknown Uncoded 03/26/20 08:52 - Worker's Comp Is this a Worker's Comp case?: No [facility] History - Hepatitis A Screen Drug use history?: No High risk sexual behaviors?: No History of sexually transmitted infection?: No Currently employed?: No Childcare worker?: No Do you have indoor plumbing?: Yes Do you have electricity?: Yes Attestation statement:: This patient has been screened for Hepatitis A risk factors. I have reviewed th
[2020-05-06 16:05] VITALS: BP 138/90; PULSE 79; RESP 18; TEMP 36.6; O2SAT 99
--- NOTE | 2020-05-07 09:47 | PC.NURSE ---
PT NOTIFIED OF POSITIVE COVID RESULT
== END 2020-05-06 16:07 | disposition home or self-care (01) ==
PROVIDERS: Emergency Provider Nurse Practitioner Family; PCP Emergency Medicine
DX: U07.1 COVID-19 (principal); E11.9 Type 2 diabetes mellitus without complications; I10 Essential (primary) hypertension; J44.9 Chronic obstructive pulmonary disease, unspecified; K21.9 Gastro-esophageal reflux disease without esophagitis; E78.5 Hyperlipidemia, unspecified; Z79.899 Other long term (current) drug therapy
CPT/HCPCS: 99201; U0003

== ENCOUNTER → 2020-06-17 14:27 | Outpatient (CLI) | payer OTHER, SELFPAY ==
[2020-06-17 15:25] LABS: Basophils % 0.3 % (0.1-2.0); Eosinophils # 0.2 K/mm3 (0.0-0.4); Eosinophils % 1.9 % (0.1-12.0); Hematocrit 42.1 % (42.0-52.0); Hemoglobin 13.7 g/dL (14.1-18.0); Lymphocytes % 17.1 % (10-50); Mean Corpuscular HGB Conc 32.5 g/dL (31.8-35.4); Mean Corpuscular Hemoglobin 29.4 pg (27.0-31.2); Mean Corpuscular Volume 90.4 fl (80-94); Mean Platelet Volume 9.2 fl (7.4-10.4); Monocytes # 0.7 K/mm3 (0.1-1.0); Monocytes % 5.7 % (1.7-9.3); Neutrophils # 8.9 K/mm3 (1.8-7.8); Platelet Count 346 K/mm3 (142-424); Red Blood Count 4.66 M/mm3 (4.60-6.20); Red Cell Distribution Width 14.1 % (11.5-17.5); White Blood Count 11.9 K/mm3 (4.8-10.8)
[2020-06-17 15:31] LABS: Alanine Aminotransferase 28 U/L (12-78); Albumin Level 4.5 g/dl (3.5-5.0); Albumin/Globulin Ratio 1.6 (1.1-1.8); Alkaline Phosphatase 133 U/L (38-126); Anion Gap 19.4 mEq/L (5-15); Aspartate Amino Transferase 28 U/L (17-59); Bilirubin,Total 0.5 mg/dl (0.2-1.3); Blood Urea Nitrogen 26 mg/dl (9-20); Calcium 9.7 mg/dl (8.4-10.2); Carbon Dioxide 28 mmol/L (22.0-30.0); Chloride 93 mmol/L (98-107); Chol/HDL Ratio 3.6 (1-3.5); Cholesterol 135 mg/dl (140-200); Estimated Glomerular Filt Rate 52 ml/min (>60); GFR (African American) 63 ML/MIN (>60); Globulin 2.9 g/dL (1.3-3.2); Glucose 119 mg/dl (74-100); HDL Cholesterol 38 mg/dl (40-60); Potassium 4.4 mmoL/L (3.5-5.1); Sodium 136 mmol/L (136-145); Total Protein,Serum 7.4 g/dl (6.3-8.2); Triglycerides 133 mg/dl (30-150); VLDL Cholesterol 27 mg/dL (0-40)
[2020-06-17 15:42] LABS: Direct LDL Cholesterol 73.31 mg/dL (100-129)
[2020-06-17 15:47] LABS: Free T4 (Free Thyroxine) 1.65 ng/dl (0.78-2.19)
[2020-06-17 16:04] LABS: Hemoglobin A1C 5.7 % (4.0-6.0)
== END ==
PROVIDERS: Visit Provider Emergency Medicine
DX: E11.9 Type 2 diabetes mellitus without complications (principal); Z79.84 Long term (current) use of oral hypoglycemic drugs
CPT/HCPCS: 80053; 80061; 83036; 84439; 84443; 85025

== ENCOUNTER → 2020-07-21 12:36 | Outpatient (CLI) | payer OTHER, SELFPAY ==
[2020-07-21 12:39] LABS: Microscopic, Urine URINE MICROSCOPIC (MICROSCOPIC)
[2020-07-21 13:03] LABS: Appearance,Urine CLEAR (Clear); Basophils # 0.1 K/mm3 (0-0.2); Basophils % 0.6 % (0.1-2.0); Bilirubin,Urine Negative (Negative); Blood, Urine Negative (Negative); Color,Urine YELLOW (Yellow); Eosinophils # 0.4 K/mm3 (0.0-0.4); Eosinophils % 3.5 % (0.1-12.0); Glucose,Urine (UA) Negative (Negative); Ketones,Urine Negative (Negative); Leukocyte Esterase,Urine Negative (Negative); Lymphocytes # 2.7 K/mm3 (0.7-4.5); Lymphocytes % 22.6 % (10-50); Mean Corpuscular HGB Conc 33.4 g/dL (31.8-35.4); Mean Corpuscular Hemoglobin 29.2 pg (27.0-31.2); Mean Corpuscular Volume 87.4 fl (80-94); Mean Platelet Volume 8.3 fl (7.4-10.4); Monocytes # 0.8 K/mm3 (0.1-1.0); Monocytes % 6.4 % (1.7-9.3); Nitrate,Urine Negative (Negative); Platelet Count 300 K/mm3 (142-424); Protein,Urine Negative (Negative); Red Cell Distribution Width 13.5 % (11.5-17.5); Urobilinogen,Urine 0.2 EU/dl (0.2); White Blood Count 11.9 K/mm3 (4.8-10.8)
[2020-07-21 13:11] LABS: Creatinine,Urine Random 46 mg/dL (Not Estab.)
[2020-07-21 14:02] LABS: Squamous Epithelial Cell,Urine Occasional #/hpf (0-5)
[2020-07-23 09:33] LABS: Albumin Level 4.5 g/dl (3.5-5.0); Anion Gap 16.7 mEq/L (5-15); Blood Urea Nitrogen 29 mg/dl (9-20); Calcium 10.2 mg/dl (8.4-10.2); Carbon Dioxide 24 mmol/L (22.0-30.0); Chloride 102 mmol/L (98-107); Estimated Glomerular Filt Rate 52 ml/min (>60); GFR (African American) 63 ML/MIN (>60); Glucose 172 mg/dl (74-100); Phosphorous 4.7 mg/dl (2.5-4.5); Potassium 4.7 mmoL/L (3.5-5.1); Sodium 138 mmol/L (136-145)
== END ==
PROVIDERS: Visit Provider Internal Medicine Nephrology
DX: N18.30 Chronic kidney disease, stage 3 unspecified (principal)
CPT/HCPCS: 36415; 80069; 81001; 82570; 84155; 85025

== ENCOUNTER → 2020-07-28 13:57 | Outpatient (POV) | payer OTHER, SELFPAY | PROVIDERS: Visit Provider Internal Medicine Nephrology | DX: Z00.00 Encounter for general adult medical examination without abnormal findings (principal) ==

== ENCOUNTER → 2020-11-19 12:55 | Outpatient (CLI) | payer OTHER, SELFPAY ==
[2020-11-19 13:50] LABS: Creatinine,Urine Random 28 mg/dL (Not Estab.)
[2020-11-19 13:57] LABS: Microalbumin < 6.000 mg/L (0-16.7)
== END ==
PROVIDERS: Visit Provider Emergency Medicine
DX: E11.9 Type 2 diabetes mellitus without complications (principal)
CPT/HCPCS: 82043; 82570

== ENCOUNTER → 2021-02-17 12:51 | Outpatient (CLI) | payer OTHER, SELFPAY ==
[2021-02-17 14:56] LABS: Alanine Aminotransferase 25 U/L (12-78); Albumin/Globulin Ratio 1.5 (1.1-1.8); Alkaline Phosphatase 130 U/L (38-126); Anion Gap 13.9 mEq/L (5-15); Aspartate Amino Transferase 25 U/L (17-59); Bilirubin,Total 0.4 mg/dl (0.2-1.3); Blood Urea Nitrogen 13 mg/dl (9-20); Calcium 9.2 mg/dl (8.4-10.2); Carbon Dioxide 28 mmol/L (22.0-30.0); Chloride 100 mmol/L (98-107); Estimated Glomerular Filt Rate 76 ml/min (>60); GFR (African American) 92 ML/MIN (>60); Globulin 2.7 g/dL (1.3-3.2); Glucose 163 mg/dl (74-100); Potassium 3.9 mmoL/L (3.5-5.1); Sodium 138 mmol/L (136-145); Total Protein,Serum 6.7 g/dl (6.3-8.2)
[2021-02-17 15:05] LABS: Hemoglobin A1C 7.5 % (4.0-6.0)
== END ==
PROVIDERS: Visit Provider Emergency Medicine
DX: E11.9 Type 2 diabetes mellitus without complications (principal); Z79.84 Long term (current) use of oral hypoglycemic drugs
CPT/HCPCS: 80053; 83036

== ENCOUNTER → 2021-03-17 10:12 | Outpatient (CLI) | payer OTHER, SELFPAY ==
[2021-03-17 12:07] LABS: Anion Gap 14.6 mEq/L (5-15); Blood Urea Nitrogen 17 mg/dl (9-20); Calcium 9.5 mg/dl (8.4-10.2); Carbon Dioxide 28 mmol/L (22.0-30.0); Chloride 99 mmol/L (98-107); Estimated Glomerular Filt Rate 68 ml/min (>60); GFR (African American) 82 ML/MIN (>60); Glucose 112 mg/dl (74-100); Potassium 4.6 mmoL/L (3.5-5.1); Sodium 137 mmol/L (136-145)
[2021-03-17 12:36] LABS: Prostate Specific Ag Screen < 0.1 ng/ml (0.0-4.0)
== END ==
PROVIDERS: Visit Provider Emergency Medicine
DX: E11.9 Type 2 diabetes mellitus without complications (principal); Z79.84 Long term (current) use of oral hypoglycemic drugs
CPT/HCPCS: 36415; 80048; G0103

== ENCOUNTER → 2021-04-27 08:51 | Outpatient (CLI) | payer OTHER, SELFPAY ==
[2021-04-27 08:54] LABS: Microscopic, Urine URINE MICROSCOPIC (MICROSCOPIC)
[2021-04-27 09:29] LABS: Basophils # 0.1 K/mm3 (0-0.2); Basophils % 0.6 % (0.1-2.0); Eosinophils # 0.3 K/mm3 (0.0-0.4); Eosinophils % 2.9 % (0.1-12.0); Lymphocytes # 2.7 K/mm3 (0.7-4.5); Lymphocytes % 26.8 % (10-50); Mean Corpuscular HGB Conc 33.4 g/dL (31.8-35.4); Mean Corpuscular Hemoglobin 29.2 pg (27.0-31.2); Mean Corpuscular Volume 87.6 fl (80-94); Mean Platelet Volume 8.7 fl (7.4-10.4); Monocytes # 0.7 K/mm3 (0.1-1.0); Monocytes % 6.4 % (1.7-9.3); Neutrophils # 6.4 K/mm3 (1.8-7.8); Neutrophils % 63.3 % (37.0-80.0); Platelet Count 282 K/mm3 (142-424); Red Blood Count 4.11 M/mm3 (4.60-6.20); Red Cell Distribution Width 13.9 % (11.5-17.5); White Blood Count 10.1 K/mm3 (4.8-10.8)
[2021-04-27 10:51] LABS: Anion Gap 12.4 mEq/L (5-15); Blood Urea Nitrogen 26 mg/dl (9-20); Calcium 9.9 mg/dl (8.4-10.2); Carbon Dioxide 28 mmol/L (22.0-30.0); Chloride 99 mmol/L (98-107); Estimated Glomerular Filt Rate 62 ml/min (>60); GFR (African American) 74 ML/MIN (>60); Glucose 138 mg/dl (74-100); Phosphorous 3.5 mg/dl (2.5-4.5); Potassium 4.4 mmoL/L (3.5-5.1); Sodium 135 mmol/L (136-145)
[2021-04-27 11:03] LABS: Intact Parathyroid Hormone 103.5 pg/mL (7.5-53.5)
[2021-04-27 11:46] LABS: Appearance,Urine CLEAR (Clear); Bilirubin,Urine Negative (Negative); Blood, Urine Negative (Negative); Color,Urine YELLOW (Yellow); Glucose,Urine (UA) Negative (Negative); Ketones,Urine Negative (Negative); Leukocyte Esterase,Urine Negative (Negative); Nitrate,Urine Negative (Negative); PH,Urine 6.5 (5.0-8.5); Protein,Urine Negative (Negative); Urobilinogen,Urine 0.2 EU/dl (0.2)
[2021-04-27 12:09] LABS: Creatinine,Urine Random 50 mg/dL (Not Estab.)
[2021-04-27 22:27] LABS: Bacteria,Urine Trace /lpf; Squamous Epithelial Cell,Urine Occasional #/hpf (0-5); WBC,Urine Occasional #/hpf (0-3)
[2021-04-27 22:47] LABS: 25-OH Vitamin D, Total 24.6 ng/mL (30-100)
[2021-04-28 16:13] LABS: Calcium, Ionized 5.4 mg/dL (4.5-5.6)
== END ==
PROVIDERS: Visit Provider Internal Medicine Nephrology
DX: N18.30 Chronic kidney disease, stage 3 unspecified (principal)
CPT/HCPCS: 36415; 80069; 81001; 82306; 82330; 82570; 83970; 84155; 85025

== ENCOUNTER → 2021-05-04 15:43 | Outpatient (POV) | payer OTHER, SELFPAY | PROVIDERS: Visit Provider Internal Medicine Nephrology | DX: Z00.00 Encounter for general adult medical examination without abnormal findings (principal) ==

== ENCOUNTER → 2021-06-10 08:44 | Outpatient (CLI) | payer OTHER, SELFPAY ==
--- NOTE | 2021-06-10 08:58 | US_ITS ---
FINAL REPORT CLINICAL HISTORY: pt has large pelvic palp soft tissue mass FINDINGS: Sonographic images were obtained of the area of interest in the lower pelvis. There is prominent subcutaneous fat in the region of interest without a well-defined mass. IMPRESSION: Prominent subcutaneous fat in region of interest. Reviewed, Interpreted and Dictated by Gerson Stern III, MD Transcribed by Lilliana Gill Authenticated by Gerson Stern III, MD on 06/10/2021 12:02:29 PM [facility]
--- NOTE | 2021-06-10 08:58 | CT_ITS ---
FINAL REPORT CLINICAL HISTORY: questionable mass ?hernia, pubic pain X2 years COMPARISON: 02/28/2018 FINDINGS: Technique: The patient was injected with intravenous contrast. Axial images through the abdomen and pelvis were performed. This study was performed with techniques to keep radiation doses as low as reasonably achievable (ALARA). Individualized dose reduction techniques using automated exposure control or adjustment of mA and/or kV according to the patient's size were employed. Abdomen: There is right posterior pleural thickening with pleural calcification and scarring, stable. The liver is normal in size and attenuation. Gallstones are again identified. There is no biliary ductal dilatation. The spleen is unremarkable. The adrenals are normal. The pancreas is unremarkable. The kidneys enhance appropriately. The aorta is normal in caliber. There is no free fluid or adenopathy. Pelvis: The appendix is normal. There is a small umbilical hernia containing fat. There are small bilateral inguinal hernias containing fat. The urinary bladder is unremarkable. There is no free fluid or adenopathy. IMPRESSION: Cholelithiasis. Umbilical and bilateral inguinal hernias as above. Reviewed, Interpreted and Dictated by Gerson Stern III, MD Transcribed by Charley Flood Authenticated by Gerson Stern III, MD on 06/10/2021 11:05:40 AM [facility]
[2021-06-10 09:15] LABS: Blood Urea Nitrogen 19 mg/dl (9-20); Estimated Glomerular Filt Rate 62 ml/min (>60); GFR (African American) 74 ML/MIN (>60)
== END ==
PROVIDERS: PCP Emergency Medicine; Visit Provider Emergency Medicine
DX: R10.9 Unspecified abdominal pain (principal); R19.00 Intra-abdominal and pelvic swelling, mass and lump, unspecified site
CPT/HCPCS: 36415; 74177; 76700; 82565; 84520; Q9967

== ENCOUNTER → 2021-07-23 09:30 | Outpatient (CLI) | payer OTHER, SELFPAY ==
[2021-07-23 10:27] LABS: Basophils # 0.1 K/mm3 (0-0.2); Basophils % 0.5 % (0.1-2.0); Eosinophils # 0.3 K/mm3 (0.0-0.4); Eosinophils % 2.6 % (0.1-12.0); Hemoglobin 12.5 g/dL (14.1-18.0); Lymphocytes # 2.2 K/mm3 (0.7-4.5); Lymphocytes % 21.7 % (10-50); Mean Corpuscular HGB Conc 31.2 g/dL (31.8-35.4); Mean Corpuscular Hemoglobin 29.3 pg (27.0-31.2); Mean Corpuscular Volume 93.8 fl (80-94); Monocytes # 0.5 K/mm3 (0.1-1.0); Monocytes % 5.2 % (1.7-9.3); Neutrophils # 7.3 K/mm3 (1.8-7.8); Neutrophils % 70.2 % (37.0-80.0); Platelet Count 312 K/mm3 (142-424); Red Blood Count 4.26 M/mm3 (4.60-6.20); Red Cell Distribution Width 14.3 % (11.5-17.5); White Blood Count 10.4 K/mm3 (4.8-10.8)
[2021-07-23 11:05] LABS: Chloride 97 mmol/L (98-107); Potassium 4.6 mmoL/L (3.5-5.1); Sodium 135 mmol/L (136-145)
[2021-07-23 11:07] LABS: Blood Urea Nitrogen 19 mg/dl (9-20); Estimated Glomerular Filt Rate 62 ml/min (>60); GFR (African American) 74 ML/MIN (>60)
[2021-07-23 11:08] LABS: Alanine Aminotransferase 27 U/L (12-78); Albumin Level 4.4 g/dl (3.5-5.0); Albumin/Globulin Ratio 1.8 (1.1-1.8); Alkaline Phosphatase 130 U/L (38-126); Anion Gap 16.6 mEq/L (5-15); Aspartate Amino Transferase 26 U/L (17-59); Bilirubin,Total 0.5 mg/dl (0.2-1.3); Carbon Dioxide 26 mmol/L (22.0-30.0); Globulin 2.4 g/dL (1.3-3.2); Glucose 137 mg/dl (74-100); Total Protein,Serum 6.8 g/dl (6.3-8.2)
== END ==
PROVIDERS: Visit Provider Surgery
DX: K40.90 Unilateral inguinal hernia, without obstruction or gangrene, not specified as recurrent (principal)
CPT/HCPCS: 36415; 80053; 85025

== ENCOUNTER → 2021-07-27 09:25 | Outpatient (CLI) | payer OTHER, SELFPAY | PROVIDERS: Visit Provider Surgery | DX: Z01.812 Encounter for preprocedural laboratory examination (principal); Z11.52 Encounter for screening for COVID-19; K40.90 Unilateral inguinal hernia, without obstruction or gangrene, not specified as recurrent | CPT/HCPCS: C9803; U0003; U0005 ==

== ENCOUNTER 2021-07-28 08:00 | Day surgery (SDC) | payer OTHER, SELFPAY ==
--- NOTE | 2021-07-23 14:13 | SUR.PREOP ---
Attempted pre-op phone call @ this time. Left message for call back.
[2021-07-24 12:52] VITALS: BMI 41.5
[2021-07-28] VITALS (11 sets, daily range): BP systolic 100–135; BP diastolic 48–82; PULSE 66–94; RESP 12–20; TEMP 36.8–37; O2SAT 91–97
--- NOTE | 2021-07-28 08:43 | HMH.ANESCL ---
[facility] Anesthesia Checklist - Structural Data Admitted From: Home Planned Operative Procedure/s: lap bilat inguinal hernias Consent for Planned Operative Procedure(s) Verified: Yes - Additional verifications Anesthesia Reactions: No Hx Blood Transfusions: No - Airway Assessment C-Spine Mobility Assessed: Yes TMJ Mobility Assessed: Yes Dentition: Edentulous - Neurological Assessment Level of Consciousness: Awake, Alert, Appropriate - Anesthesia Plan Anesthesia Risk discussed: Yes ASA Class: III Anesthesia Type: General [facility] History I have reviewed the patient's past medical history: Yes Medical History: Reports:: Asthma, Chronic Obstructive Pulmonary Disease (COPD), Coronary Artery Disease, Diabetes Mellitus Type 2, Gastroesophageal Reflux Disease(GERD), Hyperlipidemia, Hypertension, Migraine, Renal Disease, Renal Insufficiency, Seizures Denies:: Cancer, Diabetes Mellitus Type 1, MRSA *Have you ever received a pneumonia vaccine?: No *Have you received a flu vaccine this season?: No Other Medical History: Reports: Other Anesthesia experience/problems:: none Laterality Cases: Right: Arthroscopy Shoulder Other Surgeries: Yes: No Previous Surgery, Other Amputation: No Fractures: No - *Social History Smoking Status: Former smoker Alcohol Intake: never Alcohol Intake Frequency:: other Substance Use Type: marijuana *Occupational Status:: retired Housing: house Household Members: other *Travel in the last 8 weeks: None Family Hx:: Diabetes, Cancer, Stroke
--- NOTE | 2021-07-28 12:38 | HMH.OPNOTE ---
Date of procedure: 07/28/21 Pre-op Diagnosis:: Bilateral inguinal hernias, umbilical hernia Post-op Diagnosis:: Same Procedure performed:: Laparoscopic bilateral inguinal hernia repair (TEPP) with placement of Bard 3D max mesh bilaterally Open umbilical hernia repair with placement small (4.3 cm) Bard Ventralex mesh Surgeon:: Gerson France MD PHARMACEUTICAL COMPOUNDING SUPERVISOR:: Efe Bear Anesthesia: GETA Estimated blood loss (mL): 30 Clinical Note:: Patient presents for hernia repair. He is a 61-year-old male from [facility] with BMI 42 with history of chronic kidney disease, obesity, obstructive sleep apnea, diabetes, coronary artery disease, tobacco dependence syndrome, systolic heart failure, dyspnea, hypertension referred by Dr. Wilkes's office for inguinal hernia and gallbladder. He was originally seen in the office on 06/15/21. Patient describes gut swelling for about 2 years. This is mostly in the lower abdomen and pelvic area. He describes some swelling of tissues in the suprapubic location. This is bilateral. He also states my guts have been bothering me for about 4 years . He has some occasional pains he describes as a vice-like pain in his scrotum. He underwent a CT scan of the abdomen and pelvis which revealed gallstones, small umbilical hernia, small fat-containing bilateral inguinal hernias. He was therefore sent for surgical consultation. Patient did also undergo an ultrasound of the suprapubic location and this revealed fatty subcutaneous tissue. When he was first seen in the office I reviewed his imaging. I felt the gallstones are likely incidental and asymptomatic. He does have an incidental asymptomatic umbilical hernia. Inguinal hernias are quite small, bilateral, and containing fat. I felt that possible laparoscopic repair may be considered. Patient underwent cardiac risk stratification and was deemed an acceptable risk to proceed with surgery. I felt it to be unusual that these hernias would be causing his significant symptomatology with the nature of his symptoms. Nonetheless, he does have tiny fat-containing inguinal hernias at this location and he does have tenderness. I discussed the options with him and explained that he may be a candidate for possible laparoscopic repair. This would be favored given the patient's body habitus and small hernias. I discussed all of this with the patient. He strongly wished to proceed with surgery. Plan was for laparoscopic possibly open bilateral inguinal hernia repair with open umbilical hernia repair. I discussed the nature and details of the proposed procedure along with the associated risks. I made it to him clear that bilateral inguinal hernia surgery may not alleviate his symptoms. He understood and wished to proceed. Operative findings:: He had bilateral hernias with small to moderate direct component and tiny small indirect hernia bilaterally. He had a small 10 to 12 mm umbilical hernia defect. Operative note:: Patient was taken to the operating room. He was positioned in supine position. General anesthesia was induced via endotracheal tube. Gale catheter was placed. Abdomen and perineal area were prepped and draped in the standard surgical fashion. Subumbilical skin incision was made. Dissection was carried down to the anterior rectus fascia. Rectus fascia was incised to the left of the midline. Tissues were retracted laterally and the preperitoneal space in the preperitoneal space was entered. Dissecting balloon trocar was inserted and inflated dissecting out the preperitoneal space. This was then deflated and replaced with the structural balloon trocar. CO2 pneumo preperitoneum was achieved. Exposure was rather difficult and visualization was rather difficult initially. A couple of 5 mm trochars were inserted in the mid abdomen. Attention was initially turned to dissection on the left side. Initial visualization was somewhat difficult. However landmarks were arun
--- NOTE | 2021-07-28 12:43 | P.PN_ITS ---
[facility] Anesthesia Record Part I Intake, IV Amount: 1,500 Estimated blood loss (mL): 20 Urine output (mL): 150 Blood Pressure: 103/52 SaO2: 94 Pulse Rate: 88 Respiratory Rate: 12 Temperature: 98.6 F Patient is:: Awake, Stable Stable to PACU at:: 12:40
[2021-07-28 13:00] LABS: POC Glucose,Bedside 141 (70-110)
--- NOTE | 2021-07-28 13:22 | PC.NURSE ---
1247-fsbs results of 141-no further orders at this time
--- NOTE | 2021-07-28 13:36 | PC.NURSE ---
1327-detailed report called to PEG Evans 1329-pt transported to post op via stretcher w/joaquin rails up and left in care of PEG Evans, educated pt on use of incentive spirometer and pt demonstrated, vss, pt stable
[2021-07-28 15:23] LABS: Microscopic,Cath URINE MICROSCOPIC (MICROSCOPIC)
[2021-07-28 15:35] LABS: Appearance,Urine/Cath CLEAR (Clear); Bilirubin,Cath Negative (Negative); Blood, Urine/Cath Negative (Negative); Color,Urine/Cath YELLOW (Yellow); Glucose,Urine/Cath (UA) Negative (Negative); Ketones,Urine/Cath Negative (Negative); Leukocyte Esterase,Cath Negative (Negative); Nitrate,Cath Negative (Negative); Protein,Urine/Cath Negative (Negative); Specific Gravity, Urine/Cath 1.025 (1.005-1.030); Urobilinogen,Cath 0.2 EU/dl (0.2)
[2021-07-29 07:54] VITALS: BP 103/59; PULSE 68; TEMP 36.9
--- NOTE | 2021-07-29 07:54 | P.PN_ITS ---
[facility] Anesthesia Record Part II Discharge Time: 13:29 Destination: Surgical Day Care (OP Surgery) PACU nurse assessment reviewed?: Yes Patient Condition:: Good Anesthesia Complications:: None Swallowing reflex intact?: Yes Cyanosis?: No Blood Pressure: 103/59 Pulse Rate: 68 Temperature: 98.5 F Mental Status: Alert & Oriented Pain level:: 0 Nausea and/or vomitting:: None Intake, IV Amount: 0
[2022-02-18 10:57] LABS: POC Glucose,Bedside 151 (70-110)
== END 2021-07-28 14:10 | disposition home or self-care (01) ==
LOC: OR 08:04
PROVIDERS: PCP Emergency Medicine; Visit Provider Surgery
PROC: (CPT 49650; principal; 2021-07-28 09:30)
DX: K40.20 Bilateral inguinal hernia, without obstruction or gangrene, not specified as recurrent (principal); I25.10 Atherosclerotic heart disease of native coronary artery without angina pectoris; E11.9 Type 2 diabetes mellitus without complications; I10 Essential (primary) hypertension; Z79.899 Other long term (current) drug therapy
CPT/HCPCS: 49650; 49585; 81001; 82962; C1781; J2405; J2710

== ENCOUNTER → 2021-11-05 06:50 | Outpatient (CLI) | payer OTHER, SELFPAY ==
[2021-11-04 17:24] LABS: Chloride 98 mmol/L (98-107)
[2021-11-04 17:25] LABS: Potassium 3.8 mmoL/L (3.5-5.1); Sodium 137 mmol/L (136-145)
[2021-11-04 17:27] LABS: Alanine Aminotransferase 21 U/L (12-78); Albumin Level 4.4 g/dl (3.5-5.0); Albumin/Globulin Ratio 1.6 (1.1-1.8); Alkaline Phosphatase 137 U/L (38-126); Anion Gap 15.8 mEq/L (5-15); Aspartate Amino Transferase 27 U/L (17-59); Bilirubin,Total 0.4 mg/dl (0.2-1.3); Blood Urea Nitrogen 26 mg/dl (9-20); Carbon Dioxide 27 mmol/L (22.0-30.0); Estimated Glomerular Filt Rate 48 ml/min (>60); GFR (African American) 58 ML/MIN (>60); Globulin 2.7 g/dL (1.3-3.2); Total Protein,Serum 7.1 g/dl (6.3-8.2)
[2021-11-04 17:28] LABS: Calcium 9.5 mg/dl (8.4-10.2); Chol/HDL Ratio 4.5 (1-3.5); Cholesterol 152 mg/dl (140-200); Glucose 154 mg/dl (74-100); HDL Cholesterol 34 mg/dl (40-60); Triglycerides 158 mg/dl (30-150); VLDL Cholesterol 32 mg/dL (0-40)
[2021-11-04 17:39] LABS: Basophils # 0.1 K/mm3 (0-0.2); Basophils % 1.1 % (0.1-2.0); Direct LDL Cholesterol 83.18 mg/dL (100-129); Eosinophils # 0.4 K/mm3 (0.0-0.4); Eosinophils % 3.6 % (0.1-12.0); Hematocrit 39.3 % (42.0-52.0); Hemoglobin 13.1 g/dL (14.1-18.0); Lymphocytes # 2.3 K/mm3 (0.7-4.5); Lymphocytes % 22.6 % (10-50); Mean Corpuscular HGB Conc 33.3 g/dL (31.8-35.4); Mean Corpuscular Hemoglobin 29.9 pg (27.0-31.2); Mean Corpuscular Volume 89.8 fl (80-94); Mean Platelet Volume 9.9 fl (7.4-10.4); Monocytes # 0.6 K/mm3 (0.1-1.0); Monocytes % 5.6 % (1.7-9.3); Neutrophils # 6.7 K/mm3 (1.8-7.8); Neutrophils % 67.1 % (37.0-80.0); Platelet Count 325 K/mm3 (142-424); Red Blood Count 4.38 M/mm3 (4.60-6.20); Red Cell Distribution Width 13.7 % (11.5-17.5)
[2021-11-04 17:44] LABS: Free T4 (Free Thyroxine) 1.17 ng/dl (0.78-2.19)
[2021-11-04 18:00] LABS: Thyroid Stimulating Hormone 2.09 uIU/mL (0.465-4.68)
[2021-11-04 18:12] LABS: Hemoglobin A1C 7.1 % (4.0-6.0)
== END ==
PROVIDERS: PCP Emergency Medicine; Visit Provider Emergency Medicine
DX: E11.9 Type 2 diabetes mellitus without complications (principal); E55.9 Vitamin D deficiency, unspecified; I10 Essential (primary) hypertension; Z79.84 Long term (current) use of oral hypoglycemic drugs
CPT/HCPCS: 80053; 80061; 82306; 83036; 84439; 84443; 85025

== ENCOUNTER → 2022-01-27 11:43 | Outpatient (CLI) | payer OTHER, SELFPAY ==
[2022-01-27 17:01] LABS: Creatinine,Urine Random 42 mg/dL (Not Estab.)
[2022-01-27 17:09] LABS: Microalbumin < 6.000 mg/L (0-16.7)
== END ==
PROVIDERS: PCP Emergency Medicine; Visit Provider Emergency Medicine
DX: E11.9 Type 2 diabetes mellitus without complications (principal); Z79.84 Long term (current) use of oral hypoglycemic drugs
CPT/HCPCS: 82043; 82570

== ENCOUNTER → 2022-03-19 14:11 | Outpatient (CLI) | payer OTHER, SELFPAY ==
[2022-03-19 14:24] LABS: Microscopic, Urine URINE MICROSCOPIC (MICROSCOPIC)
[2022-03-19 14:43] LABS: Basophils # 0.1 K/mm3 (0-0.2); Basophils % 0.5 % (0.1-2.0); Eosinophils # 0.2 K/mm3 (0.0-0.4); Eosinophils % 1.7 % (0.1-12.0); Hematocrit 37.8 % (42.0-52.0); Hemoglobin 12.3 g/dL (14.1-18.0); Lymphocytes # 1.9 K/mm3 (0.7-4.5); Lymphocytes % 18.2 % (10-50); Mean Corpuscular HGB Conc 32.6 g/dL (31.8-35.4); Mean Corpuscular Hemoglobin 29.3 pg (27.0-31.2); Mean Corpuscular Volume 89.9 fl (80-94); Mean Platelet Volume 9.2 fl (7.4-10.4); Monocytes # 0.5 K/mm3 (0.1-1.0); Neutrophils # 7.9 K/mm3 (1.8-7.8); Neutrophils % 74.7 % (37.0-80.0); Platelet Count 319 K/mm3 (142-424); Red Blood Count 4.21 M/mm3 (4.60-6.20); Red Cell Distribution Width 13.8 % (11.5-17.5); White Blood Count 10.5 K/mm3 (4.8-10.8)
[2022-03-19 14:44] LABS: Appearance,Urine CLEAR (Clear); Bilirubin,Urine Negative (Negative); Blood, Urine Negative (Negative); Color,Urine YELLOW (Yellow); Glucose,Urine (UA) Negative (Negative); Ketones,Urine Negative (Negative); Leukocyte Esterase,Urine Negative (Negative); Nitrate,Urine Negative (Negative); PH,Urine 5.5 (5.0-8.5); Protein,Urine Negative (Negative); Urobilinogen,Urine 0.2 EU/dl (0.2)
[2022-03-19 15:05] LABS: Creatinine,Urine Random 93 mg/dL (Not Estab.)
[2022-03-19 15:30] LABS: Albumin Level 3.9 g/dl (3.5-5.0); Anion Gap 18.5 mEq/L (5-15); Blood Urea Nitrogen 23 mg/dl (9-20); Calcium 9.1 mg/dl (8.4-10.2); Carbon Dioxide 22 mmol/L (22.0-30.0); Chloride 99 mmol/L (98-107); Estimated Glomerular Filt Rate 56 ml/min (>60); GFR (African American) 68 ML/MIN (>60); Glucose 149 mg/dl (74-100); Phosphorous 2.9 mg/dl (2.5-4.5); Potassium 4.5 mmoL/L (3.5-5.1); Sodium 135 mmol/L (136-145)
[2022-03-19 15:34] LABS: Bacteria,Urine Trace /lpf; Mucus,Urine Trace /lpf; Squamous Epithelial Cell,Urine Occasional #/hpf (0-5); WBC,Urine Occasional #/hpf (0-3)
== END ==
PROVIDERS: PCP Emergency Medicine; Visit Provider Internal Medicine Nephrology
DX: N18.30 Chronic kidney disease, stage 3 unspecified (principal)
CPT/HCPCS: 36415; 80069; 81001; 82570; 84155; 85025

== ENCOUNTER → 2022-05-27 12:39 | Outpatient (POV) | payer OTHER, SELFPAY | PROVIDERS: Visit Provider Internal Medicine Nephrology | DX: Z00.00 Encounter for general adult medical examination without abnormal findings (principal) ==

== ENCOUNTER → 2023-01-31 15:43 | Outpatient (CLI) | payer OTHER, SELFPAY ==
[2023-01-31 15:48] LABS: Microscopic, Urine URINE MICROSCOPIC (MICROSCOPIC)
[2023-01-31 16:22] LABS: Appearance,Urine CLEAR (Clear); Bilirubin,Urine Negative (Negative); Blood, Urine Negative (Negative); Color,Urine YELLOW (Yellow); Glucose,Urine (UA) Negative (Negative); Ketones,Urine Negative (Negative); Leukocyte Esterase,Urine Negative (Negative); Nitrate,Urine Negative (Negative); Protein,Urine Negative (Negative); Urobilinogen,Urine 0.2 EU/dl (0.2)
[2023-01-31 16:25] LABS: Hematocrit 35.8 % (42.0-52.0); Hemoglobin 11.5 g/dL (14.1-18.0); Mean Corpuscular HGB Conc 32.2 g/dL (31.8-35.4); Mean Corpuscular Hemoglobin 28.8 pg (27.0-31.2); Mean Corpuscular Volume 89.6 fl (80-94); Platelet Count 316 K/mm3 (142-424); Red Blood Count 3.99 M/mm3 (4.60-6.20); Red Cell Distribution Width 13.7 % (11.5-17.5); White Blood Count 12.8 K/mm3 (4.8-10.8)
[2023-01-31 16:30] LABS: Squamous Epithelial Cell,Urine Occasional #/hpf (0-5)
[2023-01-31 16:31] LABS: Creatinine,Urine Random 69 mg/dL (Not Estab.)
[2023-01-31 17:26] LABS: Albumin Level 4.1 g/dl (3.5-5.0); Anion Gap 17.5 mEq/L (5-15); Blood Urea Nitrogen 23 mg/dl (9-20); Calcium 9.2 mg/dl (8.4-10.2); Carbon Dioxide 24 mmol/L (22.0-30.0); Chloride 103 mmol/L (98-107); Estimated Glomerular Filt Rate 47 ml/min (>60); GFR (African American) 57 ML/MIN (>60); Glucose 78 mg/dl (74-100); Phosphorous 3.6 mg/dl (2.5-4.5); Potassium 4.5 mmoL/L (3.5-5.1); Sodium 140 mmol/L (136-145)
[2023-01-31 17:35] LABS: Intact Parathyroid Hormone 149.3 pg/mL (7.5-53.5)
[2023-01-31 17:40] LABS: 25-OH Vitamin D, Total 73.4 ng/mL (30-100)
== END ==
PROVIDERS: PCP Emergency Medicine; Visit Provider Internal Medicine Nephrology
DX: N18.30 Chronic kidney disease, stage 3 unspecified (principal)
CPT/HCPCS: 36415; 80069; 81001; 82306; 82570; 83970; 84155; 85014; 85018; 85048; 85049

== ENCOUNTER → 2023-05-04 14:32 | Outpatient (CLI) | payer OTHER, SELFPAY ==
[2023-05-04 12:19] LABS: Basophils # 0.1 K/mm3 (0-0.2); Basophils % 0.5 % (0.1-2.0); Eosinophils # 0.3 K/mm3 (0.0-0.4); Eosinophils % 3.4 % (0.1-12.0); Hematocrit 37.8 % (42.0-52.0); Hemoglobin 12.6 g/dL (14.1-18.0); Lymphocytes # 1.7 K/mm3 (0.7-4.5); Lymphocytes % 17.2 % (10-50); Mean Corpuscular HGB Conc 33.4 g/dL (31.8-35.4); Mean Corpuscular Hemoglobin 29.8 pg (27.0-31.2); Mean Corpuscular Volume 89.5 fl (80-94); Monocytes # 0.5 K/mm3 (0.1-1.0); Monocytes % 4.6 % (1.7-9.3); Neutrophils # 7.4 K/mm3 (1.8-7.8); Neutrophils % 74.3 % (37.0-80.0); Platelet Count 274 K/mm3 (142-424); Red Blood Count 4.22 M/mm3 (4.60-6.20); Red Cell Distribution Width 13.9 % (11.5-17.5)
[2023-05-04 12:20] LABS: Chloride 103 mmol/L (98-107); Potassium 4.1 mmoL/L (3.5-5.1); Sodium 137 mmol/L (136-145)
[2023-05-04 12:22] LABS: Blood Urea Nitrogen 18 mg/dl (9-20); Estimated Glomerular Filt Rate 61 ml/min (>60); GFR (African American) 74 ML/MIN (>60)
[2023-05-04 12:23] LABS: Alanine Aminotransferase 24 U/L (12-78); Albumin Level 4.1 g/dl (3.5-5.0); Albumin/Globulin Ratio 1.6 (1.1-1.8); Alkaline Phosphatase 139 U/L (38-126); Anion Gap 13.1 mEq/L (5-15); Aspartate Amino Transferase 25 U/L (17-59); Bilirubin,Total 0.5 mg/dl (0.2-1.3); Calcium 8.9 mg/dl (8.4-10.2); Carbon Dioxide 25 mmol/L (22.0-30.0); Globulin 2.5 g/dL (1.3-3.2); Glucose 172 mg/dl (74-100); Total Protein,Serum 6.6 g/dl (6.3-8.2)
[2023-05-04 12:46] LABS: Triiodothryronine (T3) Uptake 33 % (23.5-40.5)
[2023-05-04 12:47] LABS: Free Thyroxine Index 2.8 ug/dL (5.93-13.13); T4 (Thyroxine) 8.6 ug/dl (5.53-11.0)
[2023-05-04 13:00] LABS: Thyroid Stimulating Hormone 2.53 uIU/mL (0.465-4.68)
[2023-05-04 13:09] LABS: Intact Parathyroid Hormone 75.4 pg/mL (7.5-53.5)
[2023-05-04 13:28] LABS: Prostate Specific Ag Screen < 0.1 ng/ml (0.0-4.0)
== END ==
LOC: LAB.DROPOF 14:33
PROVIDERS: Visit Provider Family Medicine
DX: E66.9 Obesity, unspecified; Z68.41 Body mass index [BMI] 40.0-44.9, adult; E11.9 Type 2 diabetes mellitus without complications; Z79.84 Long term (current) use of oral hypoglycemic drugs; Z79.899 Other long term (current) drug therapy; Z12.5 Encounter for screening for malignant neoplasm of prostate
CPT/HCPCS: 80053; 83036; 83970; 84436; 84443; 84479; 85025; G0103

== ENCOUNTER → 2023-05-12 14:06 | Outpatient (CLI) | payer OTHER, SELFPAY ==
--- NOTE | 2023-05-12 14:06 | CT_ITS ---
FINAL REPORT TECHNIQUE: Axial images were obtained from the lung apex to the mid abdomen by computed tomography. This study was performed with techniques to keep radiation doses as low as reasonably achievable (ALARA). Individualized dose reduction techniques using automated exposure control or adjustment of mA and/or kV according to the patient's size were employed. CLINICAL HISTORY: lung cancer screening former smoker quit 4 years ago 1ppd x40 years when smoking COMPARISON: 03/23/2019 FINDINGS: CHEST CT LOW DOSE CTDI vol (mGy): 2.90 DLP (mGy-cm): 96.38 There is a right paratracheal lymph node measuring 1.7 cm. There are densely calcified subcarinal and left hilar lymph nodes. There is extensive pleural calcification in the posterior/inferior right hemithorax. The heart is normal in size. There is no pericardial or pleural effusion. Lung window images demonstrate no suspicious infiltrate or nodule. Note is made of scarring. Limited images of the upper abdomen are unremarkable. IMPRESSION: Pleural calcification and scarring. Lung RADS category 2. Recommend 12 month follow-up low-dose chest CT. Reviewed, Interpreted and Dictated by Dionisio Espinoza MD Transcribed by Charley Flood Authenticated and [facility]
== END ==
LOC: RAD 14:06
PROVIDERS: Visit Provider Family Medicine
DX: Z87.891 Personal history of nicotine dependence (principal); Z12.2 Encounter for screening for malignant neoplasm of respiratory organs
CPT/HCPCS: 71271

== ENCOUNTER 2023-06-06 12:01 | Outpatient (CLI) | payer OTHER, SELFPAY ==
--- NOTE | 2023-06-06 | CA_ITS ---
APPROVED REPORT Exam: Pharmacologic Technologist: Suad Porter, Ht: 5 ft 5 in Wt: 248 lbs BSA: 2.17 m2 HR: 78 bpm BP: 107/63 mmHg Rhythm: NSR Medical History Medications: Lisinopril,,,,, Omeprazole,,,,, Aspirin,,,,, Atorvastatin,,,,, Glipizide,,,,, Albuterol,,,,, LoraTADINE,,,,, BisOPROLOL Fumarate,,,,, Vitamin D2,,,,, SpirOnolactone,,,,, Furosemide,,,,, Metformin ER,,,,, Stress Test Details Test: LEXISCAN Reason for pharmacologic stress test: physical limitation. HR Resting HR: 72 bpm Max Heart Rate (APMHR): 157 bpm Max HR Achieved: 98 bpm Target HR (85% APMHR): 133 bpm % of APMHR: 62 Recovery HR: 85 bpm BP Resting BP: 107.0/63.0 mmHg Max BP: 120.0/73.0 mmHg Recovery BP: 117.0/75.0 mmHg ECG Resting ECG: Normal sinus rhythm Stress ECG: No significant ST changes Arrhythmia: PVCs Clinical Exercise duration: 04:02 min Highest Stage Achieved: Stress ECG Conclusion Symptoms: No CP +SOA Arrhythmias/Ectopy: Rare PVC ST-T Changes: No significant ST changes Conclusion: Unremarkable Lexiscan stress test. Myoview images are reported separately. Test Summary REST . . . . . . . Resting REST 09:00 . . 72 . 107/ 63 . . Stage 1 01:00 . . 91 . . . . Stage 2 01:00 . . 92 . 113/ 72 . . Stage 3 01:00 . . 86 . 120/ 73 . . Stage 4 01:00 . . 84 . 117/ 67 . . Stage 4 01:02 . . 83 . 117/ 67 . Stop exercise at 04:02 RECOVERY 01:00 . . 85 . . . . RECOVERY 01:37 . . 86 . 117/ 75 . . Electronically signed by : Betty Bautista MD 06/07/2023 05:16:48
--- NOTE | 2023-06-06 12:01 | NM_ITS ---
APPROVED REPORT Exam: Nuclear Stress Test Indication: chest pain..soa..palpitations..fatigue Patient Location: Outpatient Stress Tech: Suad Traore [place] Tech:Precious Schulz, ARRT, RT (R)(N) Ht: 5 ft 5 in Wt: 247 lbs HR: 72 bpm BP: 107/63 mmHg BSA: 2.16 m2 TID: 1.24 BMI: 41.0 History: chest pain..soa..palpitations..fatigue Procedure: Patient received 0.4 mg of intravenous Lexiscan, resting heart rate 72 bpm, resting blood pressure 107/63 mmHg, with Lexiscan maximum heart rate achieved was 98 bpm which is 85 % of the maximum predicted heart rate and blood pressure was 120/73 mmHg. With Lexiscan, patient denied any complaint of chest pain. Cardiac Stress and Resting SPECT Images: Cardiac Stress and Resting SPECT images were obtained using technetium 99m Myoview 31.3 mCi stress and 10.62 mCi at rest. Resting and stress imaging in supine and prone positions demonstrate no definite evidence of fixed or reversible perfusion defects. There is increased transient ischemic dilatation ratio (TID 1.24), suggestive of possible multivessel disease or balanced ischemia. Gated imaging demonstrates normal global LV systolic function. There is mild hypokinesis of the septal LV wall. The LVEF is calculated at 63%. Conclusion: No definite evidence of fixed or reversible perfusion defects. There is increased transient ischemic dilatation ratio (TID 1.24), suggestive of possible multivessel disease or balanced ischemia. Gated imaging demonstrates normal global LV systolic function. There is mild hypokinesis of the septal LV wall. The LVEF is calculated at 63%. Electronically signed by : Betty Bautista MD 06/07/2023 05:19:08
--- NOTE | 2023-06-06 12:19 | CA_ITS ---
APPROVED REPORT EXAM: Comprehensive 2D, Doppler, and color-flow Echocardiogram Hot Box Spotter: Radha Castellanos RDCS Ht: 5 ft 5 in Wt: 247lbs BSA: 2.16 BP: 140/88 mmHg Indications: CP M-Mode Dimensions RVDd 2.78 cm (0.9-2.6) LA Diam 3.87 cm (1.9-4.0) LVDd 5.02 cm (3.5-5.7) LVDs 3.52 cm (3.5-5.7) IVSd 0.60 cm (0.6-1.1) PWd 0.84 cm (0.6-1.1) EF (Teich) 56.70% FS 29.90% EDV (Teich) 119.30 mL ESV (Teich) 51.60 mL LV Diastology E Decel Time 210 (160-240 msec) E/A Ratio 0.8 Mitral Valve MV E Max Thomas. 70.0 (40-130 cm/s) MV A Velocity 85.0 (40-130 cm/s) E/A Ratio 0.83 MV PHT 62.0 ms Left Ventricle The left ventricle is normal size. The left ventricular systolic function is normal. The left ventricular ejection fraction is within the normal range. There is normal left ventricular wall thickness. There is normal LV segmental wall motion. The left ventricular diastolic function is normal. LVEF is 55%. Right Ventricle Right ventricle is mildly dilated. Right ventricle is mildly hypokinetic. Atria The left atrium size is normal. The right atrium size is normal. There is no Doppler evidence of interatrial shunt. Aortic Valve The aortic valve is mildly thickened. There is no aortic valvular stenosis. Trace aortic regurgitation. Mitral Valve The mitral valve leaflets are mildly thickened. No evidence of mitral valve stenosis. Trace mitral regurgitation. Tricuspid Valve The tricuspid valve leaflets are thin and pliable. Trace tricuspid regurgitation. RVSP is 20-25 mmHg. Pulmonic Valve The pulmonary valve is normal in structure. Trace pulmonic regurgitation. Great Vessels The aortic root is normal in size. The ascending aorta is not well-visualized. IVC is normal in size and collapses >50% with inspiration. Pericardium There is no pericardial effusion. An epicardial fat pad is noted. Other Information Study Quality: Technically Difficult Conclusion Technically difficult study due to poor acoustic windows. Normal LV systolic function. Mild RV dilation with mild reduction in RV function. No significant valvular stenosis or regurgitation. Electronically signed by : Betty Bautista MD 06/08/2023 04:11:39
[2023-06-06] MEDS: ISOTOPE MYOVIEW (PER STUDY) 1 DOSE IV (14:00)
[2023-06-06] MEDS: SODIUM CHLORIDE 0.9% 10ML SYR (RAD ONLY) 10 ML IV ×2 (14:00)
[2023-06-06] MEDS: REGADENOSON 0.4MG/5ML SYRINGE 0.400000000000000022 MG IV (14:00)
== END 2023-06-06 23:59 ==
LOC: RAD 12:01
PROVIDERS: PCP Family Medicine; Visit Provider Family Medicine
DX: R06.09 Other forms of dyspnea (principal); I20.89 Other forms of angina pectoris; I10 Essential (primary) hypertension; E66.9 Obesity, unspecified; Z68.41 Body mass index [BMI] 40.0-44.9, adult
CPT/HCPCS: 78452; 93017; 93018; 93306; A9502; J2785

== ENCOUNTER 2023-08-19 15:31 | Outpatient (CLI) | payer OTHER, SELFPAY ==
[2023-08-19 15:40] LABS: Microscopic, Urine URINE MICROSCOPIC (MICROSCOPIC)
[2023-08-19 15:55] LABS: Hematocrit 35.4 % (42.0-52.0); Hemoglobin 11.7 g/dL (14.1-18.0); Mean Corpuscular Hemoglobin 29.8 pg (27.0-31.2); Mean Corpuscular Volume 90.2 fl (80-94); Platelet Count 293 K/mm3 (142-424); Red Blood Count 3.92 M/mm3 (4.60-6.20); Red Cell Distribution Width 14.5 % (11.5-17.5); White Blood Count 11.7 K/mm3 (4.8-10.8)
[2023-08-19 15:59] LABS: Appearance,Urine CLEAR (Clear); Bilirubin,Urine Negative (Negative); Blood, Urine Negative (Negative); Color,Urine YELLOW (Yellow); Glucose,Urine (UA) Negative (Negative); Ketones,Urine Negative (Negative); Leukocyte Esterase,Urine Negative (Negative); Nitrate,Urine Negative (Negative); PH,Urine 5.5 (5.0-8.5); Protein,Urine Negative (Negative); Specific Gravity, Urine 1.015 (1.005-1.030); Urobilinogen,Urine 0.2 EU/dl (0.2)
[2023-08-19 16:11] LABS: Creatinine,Urine Random 106 mg/dL (Not Estab.)
[2023-08-19 16:30] LABS: Squamous Epithelial Cell,Urine Occasional #/hpf (0-5)
[2023-08-19 16:41] LABS: Albumin Level 3.9 g/dl (3.5-5.0); Anion Gap 12.5 mEq/L (5-15); Blood Urea Nitrogen 18 mg/dl (9-20); Calcium 9.5 mg/dl (8.4-10.2); Carbon Dioxide 25 mmol/L (22.0-30.0); Chloride 103 mmol/L (98-107); Estimated Glomerular Filt Rate 44 ml/min (>60); GFR (African American) 53 ML/MIN (>60); Glucose 95 mg/dl (74-100); Phosphorous 2.5 mg/dl (2.5-4.5); Potassium 3.5 mmoL/L (3.5-5.1); Sodium 137 mmol/L (136-145)
== END 2023-08-19 23:59 ==
LOC: LAB 15:34
PROVIDERS: PCP Family Medicine; Visit Provider Internal Medicine Nephrology
DX: N18.30 Chronic kidney disease, stage 3 unspecified (principal)
CPT/HCPCS: 36415; 80069; 81001; 82570; 84156; 85014; 85018; 85048; 85049

== ENCOUNTER 2023-08-25 16:00 | Outpatient (POV) | payer OTHER, SELFPAY | END 2023-08-25 23:59 | disposition home or self-care (01) | LOC: SC 16:00 | PROVIDERS: Visit Provider Internal Medicine Nephrology | DX: Z00.00 Encounter for general adult medical examination without abnormal findings (principal) ==

== ENCOUNTER 2023-09-21 07:53 | Day surgery (SDC) | payer OTHER, SELFPAY ==
[2023-09-21] VITALS (11 sets, daily range): BP systolic 90–114; BP diastolic 53–78; PULSE 68–82; RESP 14–18; TEMP 36.9; O2SAT 93–97; BMI 39.9
--- NOTE | 2023-09-21 07:14 | IR_ITS ---
APPROVED REPORT Patient Location: Outpatient Entry Level Drafter: FRANCISCA Reyes RT (R) PROCEDURES Left heart catheterization Left ventriculogram Selective coronary angiogram INDICATION Abnormal Myoview, Angina pectoris Informed consent was obtained prior to the procedure. COMPLICATIONS NONE Estimated Blood Loss: LESS THAN 10 ML TECHNIQUE One percent lidocaine used to anesthetize the right anterior aspect of the wrist. The right radial artery was accessed via the Seldinger technique. A 6 [place] sheath was placed in the right radial artery. 2.5 mg of Verapamil, 800 mcg of nitroglycerin, 1mg Lidocaine and 5000 U Heparin were given through the arterial sheath. The papa catheter was also used to perform left heart catheterization, left ventriculogram and selective coronary angiogram. At the end of the procedure the sheath was removed good hemostasis was achieved using Traclet band, patient was transferred to the postop holding area in stable condition. ANGIOGRAPHIC RESULTS The left main artery Normal The left anterior descending artery Has mild proximal 10% luminal irregularities accompanied by SANDRA II flow The circumflex artery Nondominant normal accompanied by SANDRA II flow The right coronary artery Large dominant accompanied by SANDRA II flow The BARBER ventriculogram reveals Normal 65% The left ventricular end-diastolic pressure 25 to 30 mmHg IMPRESSION Diffuse slow flow throughout all coronary arteries consistent with endothelial dysfunction combined with diastolic dysfunction as evidenced by elevated LVEDP Normal ejection fraction PLAN 1. Patient requires diuresis 2. Avoidance of tobacco products 3. LDL less than 55 4. Aggressive risk factor modification Electronically signed by : Colt Rothman MD 09/21/2023 10:27:12
[2023-09-21 08:32] LABS: Basophils # 0.1 K/mm3 (0-0.2); Basophils % 0.4 % (0.1-2.0); Eosinophils # 0.3 K/mm3 (0.0-0.4); Eosinophils % 2.9 % (0.1-12.0); Lymphocytes # 2.4 K/mm3 (0.7-4.5); Lymphocytes % 21.5 % (10-50); Mean Corpuscular HGB Conc 32.4 g/dL (31.8-35.4); Mean Corpuscular Hemoglobin 29.4 pg (27.0-31.2); Mean Corpuscular Volume 90.7 fl (80-94); Mean Platelet Volume 8.6 fl (7.4-10.4); Monocytes # 0.7 K/mm3 (0.1-1.0); Neutrophils # 7.7 K/mm3 (1.8-7.8); Neutrophils % 69.1 % (37.0-80.0); Platelet Count 303 K/mm3 (142-424); Red Blood Count 4.08 M/mm3 (4.60-6.20); Red Cell Distribution Width 14.4 % (11.5-17.5); White Blood Count 11.1 K/mm3 (4.8-10.8)
[2023-09-21 08:40] LABS: Anion Gap 15.4 mEq/L (5-15); Blood Urea Nitrogen 27 mg/dl (9-20); Calcium 9.6 mg/dl (8.4-10.2); Carbon Dioxide 22 mmol/L (22.0-30.0); Chloride 106 mmol/L (98-107); Creatinine Clearance Estimated 78 mL/min (50-200); Estimated Glomerular Filt Rate 47 ml/min (>60); GFR (African American) 57 ML/MIN (>60); Glucose 127 mg/dl (74-100); Potassium 4.4 mmoL/L (3.5-5.1); Sodium 139 mmol/L (136-145)
[2023-09-21] MEDS: LIDOCAINE 1% 10ML MDV 20 ML IJ (10:02)
[2023-09-21] MEDS: HEPARIN 1,000 UNITS/500ML NS (CATH LAB) 3000 UNIT IV (10:02)
[2023-09-21] MEDS: 0.9 % SODIUM CHLORIDE 500 ML 25 ML IV (10:02)
[2023-09-21] MEDS: HEPARIN 1,000 UNITS/ML 10ML VIAL (CATH LAB) 10000 UNIT IV (10:02)
[2023-09-21] MEDS: diphenhydrAMINE 50MG/ML VIAL 50 MG IV (10:02)
[2023-09-21] MEDS: NITROGLYCERIN 800MCG/8ML SYR (CATH LAB) 800 MCG IA (10:02)
[2023-09-21] MEDS: VERAPAMIL 2.5MG/ML 2ML VIAL 2.5 MG IV (10:03)
[2023-09-21] MEDS: FENTANYL 100MCG/2ML VIAL 50 MCG IV (10:21)
[2023-09-21] MEDS: MIDAZOLAM HCL 1MG/1ML 5ML VIAL 1 MG IV (10:21)
[2023-09-21] MEDS: IOPAMIDOL-370 (76%);100ML BOTTLE 50 ML IV (10:54)
== END 2023-09-21 12:33 | disposition home or self-care (01) ==
PROVIDERS: PCP Family Medicine; Visit Provider Internal Medicine
DX: I25.118 Atherosclerotic heart disease of native coronary artery with other forms of angina pectoris (principal); I11.0 Hypertensive heart disease with heart failure; I50.22 Chronic systolic (congestive) heart failure; E78.5 Hyperlipidemia, unspecified; E11.9 Type 2 diabetes mellitus without complications; Z79.899 Other long term (current) drug therapy; Z79.84 Long term (current) use of oral hypoglycemic drugs; R06.02 Shortness of breath
CPT/HCPCS: 80048; 85025; 93458; 99152; C1725; C1769; J1644; Q9967

== ENCOUNTER 2023-09-28 10:19 | Outpatient (CLI) | payer OTHER, SELFPAY ==
[2023-09-28 19:42] LABS: Alanine Aminotransferase 17 U/L (12-78); Albumin Level 4.1 g/dl (3.5-5.0); Albumin/Globulin Ratio 1.7 (1.1-1.8); Alkaline Phosphatase 137 U/L (38-126); Anion Gap 20.5 mEq/L (5-15); Aspartate Amino Transferase 20 U/L (17-59); Bilirubin,Total 0.6 mg/dl (0.2-1.3); Blood Urea Nitrogen 42 mg/dl (9-20); Calcium 9.6 mg/dl (8.4-10.2); Carbon Dioxide 19 mmol/L (22.0-30.0); Chloride 99 mmol/L (98-107); Estimated Glomerular Filt Rate 29 ml/min (>60); GFR (African American) 35 ML/MIN (>60); Globulin 2.4 g/dL (1.3-3.2); Glucose 113 mg/dl (74-100); Potassium 4.5 mmoL/L (3.5-5.1); Sodium 134 mmol/L (136-145); Total Protein,Serum 6.5 g/dl (6.3-8.2)
[2023-09-28 19:52] LABS: Intact Parathyroid Hormone 123.3 pg/mL (7.5-53.5)
[2023-09-28 20:04] LABS: Free Thyroxine Index 2.4 ug/dL (5.93-13.13); T4 (Thyroxine) 7.2 ug/dl (5.53-11.0); Triiodothryronine (T3) Uptake 34 % (23.5-40.5)
[2023-09-28 20:16] LABS: Thyroid Stimulating Hormone 5.07 uIU/mL (0.465-4.68)
[2023-09-28 22:15] LABS: Iron 79 ug/dL (49-181)
[2023-09-28 22:28] LABS: Total Iron Binding Capacity 275 ug/dL (261-462)
== END 2023-09-28 23:59 | disposition home or self-care (01) ==
LOC: LAB.DROPOF 09-30 10:20
PROVIDERS: PCP Family Medicine; Visit Provider Family Medicine
DX: D50.9 Iron deficiency anemia, unspecified (principal); R79.89 Other specified abnormal findings of blood chemistry; E66.9 Obesity, unspecified; Z68.42 Body mass index [BMI] 45.0-49.9, adult
CPT/HCPCS: 80053; 83540; 83550; 83970; 84436; 84443; 84479

== ENCOUNTER 2024-01-02 08:45 | Outpatient (CLI) | payer OTHER, SELFPAY ==
[2024-01-02 20:29] LABS: Hemoglobin A1C 5.8 % (4.0-6.0)
[2024-01-02 20:36] LABS: Free Thyroxine Index 2.8 ug/dL (5.93-13.13); T4 (Thyroxine) 8.9 ug/dl (5.53-11.0); Triiodothryronine (T3) Uptake 32 % (23.5-40.5)
[2024-01-02 20:49] LABS: Thyroid Stimulating Hormone 1.93 uIU/mL (0.465-4.68)
== END 2024-01-02 23:59 | disposition home or self-care (01) ==
LOC: LAB.DROPOF 01-03 14:43
PROVIDERS: PCP Family Medicine; Visit Provider Family Medicine
DX: R79.89 Other specified abnormal findings of blood chemistry (principal); E11.9 Type 2 diabetes mellitus without complications
CPT/HCPCS: 83036; 84436; 84443; 84479

== ENCOUNTER 2024-02-06 09:30 | Outpatient (CLI) | payer OTHER, SELFPAY ==
[2024-02-06 19:51] LABS: Alanine Aminotransferase 24 U/L (12-78); Albumin Level 3.9 g/dl (3.5-5.0); Albumin/Globulin Ratio 1.3 (1.1-1.8); Alkaline Phosphatase 126 U/L (38-126); Anion Gap 11.8 mEq/L (5-15); Aspartate Amino Transferase 26 U/L (17-59); Bilirubin,Total 0.3 mg/dl (0.2-1.3); Blood Urea Nitrogen 28 mg/dl (9-20); Calcium 9.8 mg/dl (8.4-10.2); Carbon Dioxide 26 mmol/L (22.0-30.0); Chloride 104 mmol/L (98-107); Estimated Glomerular Filt Rate 44 ml/min (>60); GFR (African American) 53 ML/MIN (>60); Globulin 2.9 g/dL (1.3-3.2); Glucose 138 mg/dl (74-100); Potassium 4.8 mmoL/L (3.5-5.1); Sodium 137 mmol/L (136-145); Total Protein,Serum 6.8 g/dl (6.3-8.2)
== END 2024-02-06 23:59 | disposition home or self-care (01) ==
LOC: LAB.DROPOF 02-07 12:18
PROVIDERS: PCP Family Medicine; Visit Provider Family Medicine
DX: N18.30 Chronic kidney disease, stage 3 unspecified (principal)
CPT/HCPCS: 80053

== ENCOUNTER 2024-03-08 15:36 | Outpatient (CLI) | payer OTHER, SELFPAY ==
--- NOTE | 2024-03-08 15:45 | XR_ITS ---
FINAL REPORT CLINICAL HISTORY: knee pain COMPARISON: None FINDINGS: LEFT KNEE Three views demonstrate no acute fracture or dislocation. There is mild narrowing of the medial compartment joint space. There are small osteophytes seen at the medial joint margin and along the undersurface of the patella. No acute soft tissue abnormality is seen. IMPRESSION: Degenerative changes with acute bony abnormality. Reviewed, Interpreted and Dictated by Dionisio Espinoza MD Transcribed by Letitia Flores Authenticated and [facility]
--- NOTE | 2024-03-08 15:45 | XR_ITS ---
FINAL REPORT CLINICAL HISTORY: shoulder pain COMPARISON: None FINDINGS: LEFT SHOULDER 4 views of the left shoulder were obtained. There is no acute fracture or dislocation. Visualized joint spaces are normally aligned. Soft tissues are unremarkable. IMPRESSION: No acute bony abnormality. Reviewed, Interpreted and Dictated by Dionisio Espinoza MD Transcribed by Letitia Flores Authenticated and [facility]
--- NOTE | 2024-03-08 15:45 | XR_ITS ---
FINAL REPORT CLINICAL HISTORY: knee pain COMPARISON: None FINDINGS: RIGHT KNEE Three views demonstrate no acute fracture or dislocation. There is mild to moderate medial compartment joint space narrowing. Osteophytes are seen at the medial joint margin. No acute soft tissue abnormality is seen. IMPRESSION: Degenerative changes without acute bony abnormality. Reviewed, Interpreted and Dictated by Dionisio Espinoza MD Transcribed by Letitia Flores Authenticated and . [facility]
== END 2024-03-08 23:59 | disposition home or self-care (01) ==
LOC: RAD 15:38
PROVIDERS: PCP Family Medicine; Visit Provider Family Medicine
DX: M25.512 Pain in left shoulder (principal); M25.561 Pain in right knee; M25.562 Pain in left knee
CPT/HCPCS: 73030; 73562

== ENCOUNTER 2024-03-23 15:36 | Outpatient (CLI) | payer OTHER, SELFPAY ==
[2024-03-23 16:02] LABS: Blood Urea Nitrogen 18 mg/dl (9-20); Estimated Glomerular Filt Rate 56 ml/min (>60); GFR (African American) 67 ML/MIN (>60)
== END 2024-03-23 23:59 | disposition home or self-care (01) ==
LOC: LAB 15:38
PROVIDERS: PCP Family Medicine; Visit Provider Family Medicine
DX: Z01.812 Encounter for preprocedural laboratory examination (principal)
CPT/HCPCS: 36415; 82565; 84520

== ENCOUNTER 2024-03-26 08:14 | Outpatient (CLI) | payer OTHER, SELFPAY ==
--- NOTE | 2024-03-26 08:14 | MR_ITS ---
FINAL REPORT CLINICAL HISTORY: LIMITED ROM WEAKNESS IN ARM 23 ML PROHANCE GIVEN COMPARISON: None FINDINGS: MRI LEFT SHOULDER WITH AND WITHOUT CONTRAST: MR examination of the shoulder was performed before and after the administration of intravenous contrast. There is motion on all sequences, which somewhat limits overall image quality. There is a high-grade full-thickness tear of the distal supraspinatus tendon, a small portion of which may be intact. There is also a full-thickness tear of the anterior distal aspect of the subscapularis tendon. There is moderate acromioclavicular degenerative change present. Moderate amount of fluid is present in the subacromial/subdeltoid bursa, and in the glenohumeral joint. A posterior labral tear is present. There is a probable partial tear of the proximal LHBT. There is moderate glenoid chondromalacia with several subchondral cysts. There is thickening of the joint capsule in the axillary recess, worrisome for adhesive capsulitis. No abnormal enhancement is noted after intravenous contrast administration. IMPRESSION: High-grade full-thickness tear of the distal supraspinatus tendon, a small portion of which may be intact. Full-thickness tear of the subscapularis tendon involving the superior and distal aspect. Anterior distal infraspinatus tear is present as well. There is a posterior labral tear present as well as a probable partial tear of the proximal LHBT. Thickening of the joint capsule in the axillary recess worrisome for adhesive capsulitis Reviewed, Interpreted and Dictated by Gerson Stern III, MD Transcribed by Nelly Castillo Authenticated and [facility]
[2024-03-26] MEDS: GADOTERIDOL INJ 10ML SYRINGE 3 ML IV (09:20)
[2024-03-26] MEDS: GADOTERIDOL INJ 20ML SYRINGE 20 ML IV (09:20)
[2024-03-26] MEDS: SODIUM CHLORIDE 0.9% 10ML SYR (RAD ONLY) 10 ML IV (09:20)
== END 2024-03-26 23:59 | disposition home or self-care (01) ==
LOC: RAD 08:14
PROVIDERS: PCP Family Medicine; Visit Provider Family Medicine
DX: M25.612 Stiffness of left shoulder, not elsewhere classified (principal); G40.309 Generalized idiopathic epilepsy and epileptic syndromes, not intractable, without status epilepticus; M25.512 Pain in left shoulder
CPT/HCPCS: 73223; A9576

== ENCOUNTER 2024-04-10 11:09 | Outpatient (CLI) | payer OTHER, SELFPAY ==
--- NOTE | 2024-04-10 11:17 | XR_ITS ---
FINAL REPORT CLINICAL HISTORY: stepped in a hole last week , no surgery FINDINGS: Left ankle Three views were obtained. There is a minimal plantar spur. There is a lucency of the medial talar dome measuring 6 mm consistent with an osteochondral lesion. The joint spaces appear normal. No soft tissue abnormality is identified. IMPRESSION: Ostia chondral lesion of the medial talar dome. Reviewed, Interpreted and Dictated by Dionisio Espinoza MD Transcribed by Charley Flood Authenticated and [facility]
== END 2024-04-10 23:59 | disposition home or self-care (01) ==
LOC: RAD 11:09
PROVIDERS: PCP Family Medicine; Visit Provider Orthopaedic Surgery
DX: M93.272 Osteochondritis dissecans, left ankle and joints of left foot (principal)
CPT/HCPCS: 73610

== ENCOUNTER 2024-05-11 13:38 | Outpatient (CLI) | payer OTHER, SELFPAY ==
[2024-05-11 13:42] LABS: Microscopic, Urine URINE MICROSCOPIC (MICROSCOPIC)
[2024-05-11 14:19] LABS: Appearance,Urine CLEAR (Clear); Bilirubin,Urine Negative (Negative); Blood, Urine Negative (Negative); Color,Urine YELLOW (Yellow); Glucose,Urine (UA) Negative (Negative); Ketones,Urine Negative (Negative); Leukocyte Esterase,Urine Negative (Negative); Nitrate,Urine Negative (Negative); Protein,Urine Negative (Negative); Specific Gravity, Urine 1.015 (1.005-1.030)
[2024-05-11 14:31] LABS: Bacteria,Urine Trace /lpf; Squamous Epithelial Cell,Urine Occasional #/hpf (0-5); WBC,Urine Occasional #/hpf (0-3)
[2024-05-11 14:35] LABS: Chloride 102 mmol/L (98-107); Sodium 135 mmol/L (136-145)
[2024-05-11 14:36] LABS: Albumin Level 4.2 g/dl (3.5-5.0); Potassium 4.2 mmoL/L (3.5-5.1)
[2024-05-11 14:39] LABS: Anion Gap 10.2 mEq/L (5-15); Blood Urea Nitrogen 31 mg/dl (9-20); Calcium 9.3 mg/dl (8.4-10.2); Carbon Dioxide 27 mmol/L (22.0-30.0); Estimated Glomerular Filt Rate 47 ml/min (>60); GFR (African American) 57 ML/MIN (>60); Glucose 128 mg/dl (74-100)
[2024-05-11 15:10] LABS: Hematocrit 38.1 % (42.0-52.0); Hemoglobin 12.2 g/dL (14.1-18.0); Mean Corpuscular Hemoglobin 28.4 pg (27.0-31.2); Mean Corpuscular Volume 88.6 fl (80-94); Mean Platelet Volume 10.9 fl (7.4-10.4); Platelet Count 278 K/mm3 (142-424); Red Cell Distribution Width 13.3 % (11.5-17.5); White Blood Count 12.6 K/mm3 (4.8-10.8)
[2024-05-11 15:11] LABS: Basophils # 0.1 K/mm3 (0-0.2); Basophils % 0.4 % (0.1-2.0); Eosinophils # 0.3 K/mm3 (0.0-0.4); Eosinophils % 2.8 % (0.1-12.0); Lymphocytes # 2.9 K/mm3 (0.7-4.5); Lymphocytes % 22.9 % (10-50); Monocytes % 7.9 % (1.7-9.3); Neutrophils # 8.2 K/mm3 (1.8-7.8); Neutrophils % 65.4 % (37.0-80.0)
== END 2024-05-11 23:59 | disposition home or self-care (01) ==
LOC: LAB 13:40
PROVIDERS: PCP Family Medicine; Visit Provider Student in an Organized Health Care Education/Training Program
DX: N18.30 Chronic kidney disease, stage 3 unspecified (principal)
CPT/HCPCS: 36415; 80069; 81001; 85025

== ENCOUNTER 2024-06-01 09:15 | Outpatient (CLI) | payer OTHER, SELFPAY ==
--- NOTE | 2024-06-01 10:08 | ECG_ITS ---
APPROVED REPORT Exam: Resting ECG HR:72 bpm ECG Measurements Heart Rate 72 AXES MS 114 P -52 QRSd 90 QRS 21 QT 408 T 17 QTc 432 Conclusion ECTOPIC ATRIAL RHYTHM WITH SHORT MS INTERVAL LOW QRS VOLTAGE IN PRECORDIAL LEADS [QRS DEFLECTION < 1.0 mV IN CHEST LEADS] POSSIBLE RIGHT VENTRICULAR CONDUCTION DELAY [RSR (QR) IN V1/V2] ABNORMAL RHYTHM ECG UNCONFIRMED REPORT Electronically signed by : Feng Ugarte MD 06/12/2024 19:20:38
[2024-06-01 10:19] VITALS: BMI 42.4
[2024-06-01 10:39] LABS: Basophils % 0.4 % (0.1-2.0); Eosinophils # 0.2 K/mm3 (0.0-0.4); Hematocrit 33.8 % (42.0-52.0); Hemoglobin 11.2 g/dL (14.1-18.0); Lymphocytes # 1.9 K/mm3 (0.7-4.5); Lymphocytes % 17.2 % (10-50); Mean Corpuscular HGB Conc 33.1 g/dL (31.8-35.4); Mean Corpuscular Hemoglobin 28.3 pg (27.0-31.2); Mean Corpuscular Volume 85.4 fl (80-94); Mean Platelet Volume 11.6 fl (7.4-10.4); Monocytes # 0.7 K/mm3 (0.1-1.0); Monocytes % 6.5 % (1.7-9.3); Neutrophils # 8.2 K/mm3 (1.8-7.8); Neutrophils % 73.1 % (37.0-80.0); Platelet Count 238 K/mm3 (142-424); Red Blood Count 3.96 M/mm3 (4.60-6.20); Red Cell Distribution Width 13.2 % (11.5-17.5); White Blood Count 11.3 K/mm3 (4.8-10.8)
[2024-06-01 10:43] LABS: Chloride 102 mmol/L (98-107); Potassium 3.3 mmoL/L (3.5-5.1); Sodium 135 mmol/L (136-145)
[2024-06-01 10:46] LABS: Anion Gap 10.3 mEq/L (5-15); Blood Urea Nitrogen 19 mg/dl (9-20); Calcium 8.8 mg/dl (8.4-10.2); Carbon Dioxide 26 mmol/L (22.0-30.0); Creatinine Clearance Estimated 48 mL/min (50-200); Estimated Glomerular Filt Rate 56 ml/min (>60); GFR (African American) 67 ML/MIN (>60); Glucose 176 mg/dl (74-100)
== END 2024-06-01 23:59 | disposition home or self-care (01) ==
LOC: PREOP 09:16
PROVIDERS: Nurse Anesthetist, Certified Registered; PCP Family Medicine; Visit Provider Orthopaedic Surgery
DX: I49.1 Atrial premature depolarization (principal); R94.31 Abnormal electrocardiogram [ECG] [EKG]
CPT/HCPCS: 80048; 85025; 93005

== ENCOUNTER 2024-07-09 11:22 | Outpatient (CLI) | payer OTHER, SELFPAY ==
[2024-07-09 11:50] LABS: Basophils # 0.1 K/mm3 (0-0.2); Basophils % 0.5 % (0.1-2.0); Eosinophils # 0.3 K/mm3 (0.0-0.4); Hematocrit 35.3 % (42.0-52.0); Hemoglobin 10.8 g/dL (14.1-18.0); Lymphocytes # 2.6 K/mm3 (0.7-4.5); Lymphocytes % 23.2 % (10-50); Mean Corpuscular HGB Conc 30.6 g/dL (31.8-35.4); Mean Corpuscular Hemoglobin 28.1 pg (27.0-31.2); Mean Corpuscular Volume 91.7 fl (80-94); Mean Platelet Volume 10.8 fl (7.4-10.4); Monocytes # 0.8 K/mm3 (0.1-1.0); Neutrophils # 7.2 K/mm3 (1.8-7.8); Neutrophils % 65.2 % (37.0-80.0); Platelet Count 327 K/mm3 (142-424); Red Blood Count 3.85 M/mm3 (4.60-6.20); Red Cell Distribution Width 13.7 % (11.5-17.5)
[2024-07-09 12:29] LABS: Chloride 98 mmol/L (98-107); Potassium 4.9 mmoL/L (3.5-5.1); Sodium 137 mmol/L (136-145)
[2024-07-09 12:32] LABS: Anion Gap 12.9 mEq/L (5-15); Blood Urea Nitrogen 28 mg/dl (9-20); Calcium 9.4 mg/dl (8.4-10.2); Carbon Dioxide 31 mmol/L (22.0-30.0); Estimated Glomerular Filt Rate 51 ml/min (>60); GFR (African American) 62 ML/MIN (>60); Glucose 187 mg/dl (74-100)
== END 2024-07-09 23:59 | disposition home or self-care (01) ==
LOC: LAB 11:23
PROVIDERS: PCP Family Medicine; Visit Provider Orthopaedic Surgery
DX: M17.0 Bilateral primary osteoarthritis of knee (principal); M17.12 Unilateral primary osteoarthritis, left knee
CPT/HCPCS: 36415; 80048; 85025

== ENCOUNTER 2024-07-11 13:18 | Observation (INO) | payer OTHER, SELFPAY ==
[2024-07-09 10:44] VITALS: BMI 42.4
[2024-07-11] VITALS (21 sets, daily range): BP systolic 103–156; BP diastolic 51–83; PULSE 67–87; RESP 16–22; TEMP 36.1–36.5; O2SAT 90–95
--- NOTE | 2024-07-11 09:21 | P.PNANES_ITS ---
[facility] Disclaimer: The information contained in this section may have been updated after the patient was seen, as this information can be updated by other users. Medical History COPD (chronic obstructive pulmonary disease) Diabetes Anginal equivalent Dizziness NASIM (obstructive sleep apnea) Pleurisy Tachycardia CAD (coronary artery disease) Surgical History History of hernia repair History of shoulder surgery Family History Other Family history of cancer Family history of diabetes mellitus Family history of heart disease Social History (Updated 07/11/24 @ 08:25 by Mahogany Cuevas RN) Smoking Status: Former smoker alcohol intake: former substance use type: marijuana current occupational status: disabled Travel in the last 8 weeks: None household members: other housing: house Have you lived/traveled outside US in past 30 days?: No Contact w/someone who lives/traveled outside US past 30 days?: No Exposure to someone with infectious disease in past 14 days?: No Do you have a fever (greater than 100.4 F or 38 C)?: No Have you tested positive for COVID-19: No Exposed to someone with COVID-19 in past 14 days?: No Do you have a sore throat?: No Do you have a cough?: No Do you have any weakness?: No Are you experiencing any nausea/vomitting?: No Do you have any diarrhea?: No Are you experiencing any unusual bleeding?: No Do you have any muscle aches/pain?: No Do you have any abdominal pain?: No Are you experiencing loss of taste or smell?: No [facility] Anesthesia Checklist Patient Identification Patient Identification: Arm Band and Family Structural Data Admitted From: Home Planned Operative Procedure/s: Left total knee. Consent for Planned Operative Procedure(s) Verified: Yes Verified Documents: Surgical Consent and History and Physical NPO Status Verified Time NPO: 00:00 Additional verifications Patient : No Anesthesia Reactions: No Hx Blood Transfusions: No Blood Transfusion Reaction: No Cephalosporin Allergy: No Previous Colonoscopy: No Airway Assessment Mallampati Score:: Class II C-Spine Mobility Assessed: Yes TMJ Mobility Assessed: Yes Dentition: Good Dentition Neurological Assessment Level of Consciousness: Awake, Alert, Appropriate and Follows Commands Hx Seizures: Yes Numbness or tingling in extremities: No Anesthesia Plan Anesthesia Risk discussed: Yes ASA Class: III Anesthesia Type: Spinal Preoperative Comments Pre-Operative Comments: Asbestosis. Hypertension. seizure when young. NIDDM.
[2024-07-11] MEDS: CEFAZOLIN SODIUM 2 GM in 0.9 % SODIUM CHLORIDE 100 ML IV (09:37)
[2024-07-11] MEDS: SODIUM CHLORIDE 0.9% IV (10:30)
[2024-07-11] MEDS: TRANEXAMIC ACID IV (10:30)
--- NOTE | 2024-07-11 12:25 | XR_ITS ---
FINAL REPORT CLINICAL HISTORY: Status post left total knee arthroplasty COMPARISON: 03/08/2024 FINDINGS: AP and lateral views of the left knee were obtained. There is no acute fracture or dislocation. Patient is status post knee arthroplasty. The hardware is intact. There is no immediate complication. There are expected postoperative soft tissue changes. Anterior surgical skin maverick are noted. IMPRESSION: Postsurgical changes. Reviewed, Interpreted and Dictated by Raegan Antonio MD Transcribed by Charley Flood Authenticated and [facility]
--- NOTE | 2024-07-11 12:33 | P.OP_ITS ---
Date of procedure: 07/11/24 Pre-op Diagnosis:: End-stage osteoarthritis left knee Post-op Diagnosis:: Same Procedure performed:: Left total knee arthroplasty Surgeon:: Braulio Gil DO Race Engine Builder(s):: Zia CORONEL WET PROCESS MILLER HEAD:: Ankur Fountain Anesthesia: spinal Estimated blood loss (mL): 100 Clinical Note:: Implants Medacta size as 4 femur 3 tibia 12 mm poly size 2 patella Operative findings:: See dictation Operative note:: Patient identified preoperatively. Left knee marked with yes my initials. Transported operative suite. Given spinal anesthesia. Then placed upon operating bed. Gale catheter placed. Left lower extremity was prepped and draped normal sterile fashion. Once prepped and draped final operative timeout performed to identify proper patient procedure and extremity. Everyone involved in the case agreed. There were no counter indications beginning. Did receive preoperative antibiotics. Marking pen was used to make planned incision midline over the knee. Esmarch was used to exsanguinate the extremity and pneumatic tourniquet inflated to 300 mmHg. Knee was flexed skin knife is used to incise the skin to identify the capsule. Standard medial parapatellar approach was utilized and capsulotomy was performed patella was everted the knee was flexed. Anterior aspects of medial lateral meniscus were sacrificed ACL sacrificed. Attention was brought to the femur intramedullary opening reamer was utilized followed by the intramedullary leann and the distal cutting block. 8 mm distal cut was measured cutting block was pinned in the place. Distal femoral cut was made. This is adequate distal femoral cut. The posterior referencing guide was placed and the femur sized to a size 4. Pins for the forearm cutting block were utilized and the 4-in-1 cutting block was selected and screwed into place and distal femur. Anterior and posterior cuts were made followed by anterior and posterior chamfer cuts. Followed by the femoral trial size 4 which was impacted into place and gave good fit and fill. Lug holes were drilled femoral trial removed. Attention was brought to the tibia the tibia was subluxed anteriorly retractors were placed extramedullary tibial guide was selected placed in line with the long axis of the tibia with the extramedullary guide at the ankle. Posterior slope was dialed then was pinned in the place. Osteotomy was performed of the tibia. The flexion extension gap blocks were then utilized starting with a size 10 which was slightly tight in flexion slightly tight in extension. Therefore a 2 additional millimeters cup from the tibia with the cutting block. Trial tibia plate was then selected and pinned in the place proper alignment smokes stack guide was utilized and reamer was utilized followed by punch femoral trial was replaced size 10 poly followed by 11 poly followed by 12 poly was selected 12 poly gave good balance both in flexion extension very stable. Tendons then brought to the patella and the patella clamp was utilized and 10 mm of patella were cut through the guide followed by sizing guide to a size 2 this was drilled and the trial was placed with all the trials in place the knee was taken through flexion extension found to be stable throughout arc of range of motion. That time all the trials were removed irrigation of the wound was performed irrigation of the bone performed it was dried retractors placed final implants opened on the back table sized for femur size 3 tibia 12 mm poly and a size 2 patella. Irrigation repeated cement mixed on the back table once cement was ready is cemented in the tibial implant followed by the poly followed by the femoral implant standard cementing technique all excess cement was removed knee was brought in extension and excess cement removed again. Then the leg was placed straight the patella was then cemented into place with the patella clamp held into place until the cement hardened. Once the cement was hardened any excess cement removed irrigation repeated tourniquet deflated hemostasis obtained electrocautery. Then the capsule was closed with a running strata fix suture deep layers with 0 Vicryl subcutaneous with 2-0 Vicryl surgical clips in the skin for closure sterile dressing placed from toe to thigh patient waken from anesthesia taken recovery stable condition. Postoperative plan includes overnight stay with consultation with physical therapy to arrange home health versus outpatient physical therapy. Aspirin and early ambulation for DVT prophylaxis Condition: stable Disposition: PACU Complications:: None apparent
--- NOTE | 2024-07-11 12:46 | EXP.ANES.I ---
[facility] Anesthesia Record Part I Anesthesia Record I Intake, IV Amount: 1,300 Hydration: Adequate Estimated blood loss (mL): 25 Urine output (mL): 200 Blood Products used (#): none Blood Pressure: 133/83 SaO2: 93 Pulse Rate: 77 Airway Patency: Patent Respiratory Rate: 22 Temperature: 97 F Patient is:: Drowsy and Stable Stable to PACU at:: 12:33 Comments:: Adductor canal accomplished in recovery room.
--- NOTE | 2024-07-11 13:24 | PC.NURSE ---
arrived to floor by bed from surgery at 1:17
[2024-07-11 13:34] LABS: Microscopic,Cath URINE MICROSCOPIC (MICROSCOPIC)
[2024-07-11 13:39] LABS: Appearance,Urine/Cath CLEAR (Clear); Bilirubin,Cath Negative (Negative); Blood, Urine/Cath Negative (Negative); Color,Urine/Cath YELLOW (Yellow); Glucose,Urine/Cath (UA) Negative (Negative); Ketones,Urine/Cath Negative (Negative); Leukocyte Esterase,Cath Negative (Negative); Nitrate,Cath Negative (Negative); PH,Urine/Cath 6.5 (5.0-8.5); Protein,Urine/Cath Negative (Negative); Specific Gravity, Urine/Cath 1.015 (1.005-1.030); Urobilinogen,Cath 0.2 EU/dl (0.2)
[2024-07-11 13:53] LABS: RBC,Urine/Cath Occasional # /hpf (0-3); Squamous Epithelial Ur./Cath Occasional #/hpf (0-5)
--- NOTE | 2024-07-11 13:55 | EXP.ANES.II ---
[facility] Anesthesia Record Part II Anesthesia Record Part II Discharge Time: 13:03 Destination: Medical Surgical Department PACU nurse assessment reviewed?: Yes Patient Condition:: Good Anesthesia Complications:: None Swallowing reflex intact?: Yes Airway Patency: Patent Cyanosis?: No Blood Pressure: 107/62 SaO2: 94 Respiratory Rate: 16 Pulse Rate: 69 Temperature: 97 F Mental Status: Alert & Oriented Pain level:: 0 Nausea and/or vomitting:: None Intake, IV Amount: 0 Hydration: Adequate
--- NOTE | 2024-07-11 13:59 | HMH.PHAINT1 ---
Pharmacy Intervention Comments: MEDICATION RECONCILIATION COMPLETED ON PATIENT USING EXTERNAL FILL HISTORY FROM PHARMACY AND LIST FROM PCP OFFICE.
[2024-07-11] MEDS: HYDROCODONE/APAP 5/325 MG TABLET 1 TAB PO ×2 (14:00→14:55)
[2024-07-11] MEDS: Dex 5% in 0.45% NaCl 1,000 ML 75 ML IV (14:01)
--- NOTE | 2024-07-11 14:42 | PC.NURSE ---
CALLED DIETARY FOR LUNCH TRAY FOR PT.
[2024-07-11] MEDS: CEFAZOLIN SODIUM 1 GM in 0.9 % SODIUM CHLORIDE 50 ML IV ×2 (16:26→21:05)
[2024-07-11] MEDS: METFORMIN 500MG TABLET 500 MG PO (16:29)
[2024-07-11] MEDS: HYDROCODONE/APAP 5/325 MG TABLET 2 TAB PO ×2 (18:31→23:07)
[2024-07-11] MEDS: FLUTICASONE/SALMETEROL 250/50MCG DISKUS 1 PUFF IH (18:33)
--- NOTE | 2024-07-11 18:44 | PC.NURSE ---
PT IS A&OX4. PT HAS TOLERATED RA WELL THROUGHOUT SHIFT. RESPIRATIONS REGULAR AND UNLABORED. LUNG SOUNDS CLEAR THROUGHOUT. NO COUGH NOTED. EDUCATED AND PROVIDED PT WITH INCENTIVE SPIROMETER. ENCOURAGED TO USE 10 TIMES EVERY HOUR WHILE AWAKE. ACTIVE BOWEL SOUNDS HEARD IN ALL 4 QUADRANTS. SOFT AND NONTENDER. +2 PULSES NOTED THROUGHOUT. NO EDEMA NOTED. HEART RATE REGULAR. NO BM THUS FAR. DEL CID CATH IN PLACE. NO KINKS NOTED. CLEAR YELLOW URINE NOTED IN DRAINAGE BAG. POLAR PACK IN PLACE TO L KNEE. DRESSING TO L KNEE HAS REMAINED CDI. PT HAS REPORTED PAIN TWICE AND RECEIVED PAIN MEDS PER JUL. PT IS ABLE TO MOVE INDEPENDENTLY IN BED. BED IN LOWEST POSITION. CALL LIGHT WITHIN REACH. VSS. PT RECEIVED ANCEF ONCE AND TOLERATED WELL.
[2024-07-11] MEDS: ASPIRIN EC 81MG TABLET 81 MG PO (21:05)
[2024-07-11] MEDS: PANTOPRAZOLE 40MG TABLET 40 MG PO (21:05)
[2024-07-11] MEDS: ATORVASTATIN 20MG TABLET 20 MG PO (21:05)
[2024-07-11] MEDS: TAMSULOSIN 0.4MG CAPSULE 0.4 MG PO (21:05)
[2024-07-12] VITALS: BP 128/76; PULSE 77; RESP 20; TEMP 36.4; O2SAT 93
--- NOTE | 2024-07-12 03:19 | PC.NURSE ---
PT IS RESTING IN BED. ALERT AND ORIENTED X4. HAS SLEPT ON AND OFF T/O THE NIGHT. MEDICATED PER JUL FOR PAIN. SURGICAL DRESSING TO LEFT KNEE C/D/I. POLAR PACK IN PLACE. LUNG SOUNDS CLEAR. ABDOMEN SOFT/NON TENDER WITH ACTIVE BOWEL SOUNDS. PT STATED HIS LAST BOWEL MOVEMENT WAS 05/09. CATHETER DRAINING AT BEDSIDE. 800 ML'S UOP EMPTIED AT 0300. VSS. WILL CONTINUE TO MONITOR.
[2024-07-12] MEDS: Dex 5% in 0.45% NaCl 1,000 ML 75 ML IV (03:38)
[2024-07-12] MEDS: HYDROCODONE/APAP 5/325 MG TABLET 2 TAB PO ×2 (03:39→08:23)
[2024-07-12 04:00] VITALS: BP 117/76; PULSE 83; RESP 19; TEMP 36.4; O2SAT 98; BMI 40.4
[2024-07-12] MEDS: FLUTICASONE/SALMETEROL 250/50MCG DISKUS 1 PUFF IH (06:25)
[2024-07-12] MEDS: METFORMIN 500MG TABLET 500 MG PO (06:35)
[2024-07-12] MEDS: LEVOTHYROXINE 25MCG (0.025MG) TAB 25 MCG PO (06:35)
[2024-07-12 06:37] LABS: Basophils % 0.2 % (0.1-2.0); Eosinophils % 0.1 % (0.1-12.0); Hematocrit 31.2 % (42.0-52.0); Hemoglobin 9.8 g/dL (14.1-18.0); Lymphocytes # 1.3 K/mm3 (0.7-4.5); Lymphocytes % 7.2 % (10-50); Mean Corpuscular HGB Conc 31.4 g/dL (31.8-35.4); Mean Corpuscular Volume 89.1 fl (80-94); Mean Platelet Volume 11.1 fl (7.4-10.4); Monocytes # 1.6 K/mm3 (0.1-1.0); Monocytes % 8.9 % (1.7-9.3); Neutrophils # 15.2 K/mm3 (1.8-7.8); Neutrophils % 82.8 % (37.0-80.0); Platelet Count 266 K/mm3 (142-424); Red Cell Distribution Width 13.9 % (11.5-17.5); White Blood Count 18.3 K/mm3 (4.8-10.8)
[2024-07-12 06:57] LABS: Chloride 101 mmol/L (98-107); Sodium 136 mmol/L (136-145)
[2024-07-12 06:58] LABS: Potassium 4.5 mmoL/L (3.5-5.1)
[2024-07-12 07:00] LABS: Blood Urea Nitrogen 23 mg/dl (9-20); Creatinine Clearance Estimated 103 mL/min (50-200); Estimated Glomerular Filt Rate 67 ml/min (>60); GFR (African American) 82 ML/MIN (>60)
[2024-07-12 07:01] LABS: Anion Gap 11.5 mEq/L (5-15); Calcium 8.7 mg/dl (8.4-10.2); Carbon Dioxide 28 mmol/L (22.0-30.0); Glucose 160 mg/dl (74-100)
[2024-07-12 07:02] LABS: MANUAL DIFFERENTIAL MANUAL DIFFERENTIAL (MANUAL DIFF)
[2024-07-12 07:55] VITALS: BP 136/82; PULSE 89; RESP 18; TEMP 36.4; O2SAT 95
[2024-07-12] MEDS: IRBESARTAN 75MG TABLET 37.5 MG PO (08:04)
[2024-07-12] MEDS: SPIRONOLACTONE 25MG TABLET 100 MG PO (08:04)
[2024-07-12] MEDS: BISOPROLOL 5MG TABLET 5 MG PO (08:04)
[2024-07-12] MEDS: ASPIRIN EC 81MG TABLET 81 MG PO (08:04)
[2024-07-12] MEDS: FUROSEMIDE 80 MG TABLET PO (08:04)
[2024-07-12] MEDS: glipiZIDE 5MG TABLET 5 MG PO (08:04)
[2024-07-12 08:33] LABS: POC Glucose,Bedside 156 (70-110)
--- NOTE | 2024-07-12 09:06 | P.HPDS_ITS ---
General Admission date:: 07/11/24 Discharge date: 07/12/24 *Admission Date: 07/11/24 *Chief complaint: L knee osteroarthritis s/pLeft total knee arthroplasty *History of present illness: Patient seen sitting in chair comfortably, No issues overnight. Denies LIAO, dizziness, CP, SOB, n/v, calf pain, paresthesias. + flatus. No void s/p moralez removal. [facility] Disclaimer: The information contained in this section may have been updated after the patient was seen, as this information can be updated by other users. Medical History COPD (chronic obstructive pulmonary disease) Diabetes Anginal equivalent Dizziness NASIM (obstructive sleep apnea) Pleurisy Tachycardia CAD (coronary artery disease) Surgical History History of hernia repair History of shoulder surgery Family History Other Family history of cancer Family history of diabetes mellitus Family history of heart disease Social History (Updated 07/11/24 @ 14:16 by Romana Sainz, RN) Smoking Status: Former smoker alcohol intake: former substance use type: marijuana current occupational status: disabled Travel in the last 8 weeks: None adopted: No household members: other housing: house Other Medical History Have you received the Flu Vaccine for this season: No Have you received the Pneumonia Vaccine: No Exam Data for Last 24 hours Vital signs and Labs for Last 24 Hours: Temp Pulse Resp BP Pulse Ox O2 Del Method 97.6 F 89 18 136/82 95 Room Air 07/12/24 07:55 07/12/24 07:55 07/12/24 07:55 07/12/24 07:55 07/12/24 07:55 07/12/24 08:05 Laboratory Results - last 24 hr 07/11/24 08:31: POC Glucose 156 H 07/11/24 09:45: Urine Color Yellow, Urine Appearance Clear, Urine pH 6.5, Ur Specific [place] 1.015, Urine Protein Negative, Urine Glucose (UA) Negative, Urine Ketones Negative, Urine Blood Negative, Urine Nitrate Negative, Urine B ilirubin Negative, Urine Urobilinogen 0.2, Ur Leukocyte Esterase Negative, Urine RBC Occasional, Urine WBC None, Ur Squamous Epith Cells Occasional, Urine Bacteria None 07/12/24 05:49: WBC 18.3 H D, RBC 3.50 L, Hgb 9.8 L, Hct 31.2 L, MCV 89.1, MCH 28.0, MCHC 31.4 L, RDW 13.9, Plt Count 266, MPV 11.1 H, Neut % (Auto) 82.8 H, Lymph % (Auto) 7.2 L, [place] % (Auto) 8.9, Eos % (Auto) 0.1, Baso % (Auto) 0.2, Neut # (Auto) 15.2 H, Lymph # (Auto) 1.3, [place] # (Auto) 1.6 H, Eos # (Auto) 0.0, Baso # (Auto) 0.0, Sodium 136, Potassium 4.5, Chloride 101, Carbon Dioxide 28, Anion Gap 11.5, BUN 23 H, Creatinine 1.10 D, Estimated Creat Clear 103, Estimated GFR 67, Est GFR ( Amer) 82 D, Glucose 160 H, Calcium 8.7 I & O for Last 24 hours: Intake & Output 07/09/24 07/10/24 07/11/24 07/12/24 23:59 23:59 23:59 23:59 Intake Total 2116 / 2116 663 / 663 Output Total 600 / 600 1300 / 1300 Balance 1516 / 1516 -637 / -637 Weight 112.037 kg 107.411 kg *Routine HEENT Exam Head: Present normocephalic Eye: Present EOMI and PERRL ENT: Present mucous membranes moist *Routine Respiratory Exam Respiratory: Present CTA bilaterally *Routine Cardiovascular Exam Cardiovascular: Present RRR *Routine Abdominal Exam Abdominal: Present soft and normoactive bowel sounds *Routine Rectal Exam Rectal:: deferred *Routine Genitalia Exam Genitalia:: deferred Detailed Lower Extremity Exam Comments: L knee: Dressing changed by nursing, C/D/I. Moving well 0-90 with good strength. NVID with +2 DP, SILT at 1st DWS/PA equal b/l. +EHL/FHL/GS/TA. Calves and thigh SNT. XR of L knee taken 07/11/24 shows a TKA well -seated with good cement mantle. Meds Home Medications and Allergies Home Medications ?Medication ?Instructions ?Recorded ?Confirmed ?Type bisoprolol fumarate 5 mg tablet 5 mg PO DAILY #90 tabs 02/06/24 07/11/24 Rx cholecalciferol (vitamin D3) 50 50 mcg PO DAILY #90 caps 02/06/24 07/11/24 Rx mcg (2,000 unit) capsule metformin 500 mg tablet,extended 500 mg PO BID #180 tabs 02/06/24 07/11/24 Rx release 24 hr blood sugar diagnostic #100 ea 02/08/24 05/30/24 Rx blood sugar diagnostic (OneTouch #100 ea 04/04/24 05/30/24 Rx Verio test strips) lancets (Accu-Chek Fastclix Lancet #100 ea 04/04/24 05/30/24 Rx Drum) losartan 25 mg tablet 25 mg PO DAILY #30 tabs 05/30/24 07/11/24 Rx albuterol sulfate 2.5 mg/3 mL 2.5 mg (3 mL) inhalation Q6H PRN 07/05/24 07/11/24 Rx (0.083 %) solution for nebulization shortness of breath or wheezing #360 mL desvenlafaxine succinate 50 mg 50 mg PO DAILY #90 tabs 07/05/24 07/11/24 Rx tablet,extended release 24 hr (Pristiq) hydroxyzine pamoate 50 mg capsule 50 mg PO HS #90 caps 07/05/24 07/11/24 Rx alfuzosin 10 mg tablet,extended 10 mg PO DAILY 07/11/24 07/11/24 History release 24 hr aspirin 81 mg tablet,delayed 81 mg PO DAILY 07/11/24 07/11/24 History release atorvastatin 20 mg tablet 20 mg PO DAILY 07/11/24 07/11/24 History ergocalciferol (vitamin D2) 1,250 1,250 mcg PO WEEKLY 07/11/24 07/11/24 History mcg (50,000 unit) capsule (Vitamin D2) fluticasone furoate 100 1 inh inhalation Q24H 07/11/24 07/11/24 History mcg-vilanterol 25 mcg/dose inhalation powder furosemide 40 mg tablet 80 mg PO DAILY 07/11/24 07/11/24 History glipizide 5 mg tablet 5 mg PO DAILY 07/11/24 07/11/24 History levothyroxine 25 mcg tablet 25 mcg PO DAILY 07/11/24 07/11/24 History omeprazole 40 mg capsule,delayed 40 mg PO DAILY 07/11/24 07/11/24 History release spironolactone 50 mg tablet 100 mg PO DAILY 07/11/24 07/11/24 History hydrocodone 5 mg-acetaminophen 325 1 tab PO Q4H PRN post op pain #42 07/12/24 Rx mg tablet tabs New Prescriptions to Start Prescriptions: hydrocodone-acetaminophen Braulio Gil Allergies Allergy/AdvReac Type Severity Reaction Status Date / Time No Known Allergies Allergy Verified 07/11/24 14:10 Hospital Course Hospital Course Hospital Course: Patient was seen outpatient and consented for L Total knee arthroplasty with Dr. Gil after risks, benefits and alternatives were discussed. HE was scheduled for 07/11/24, with procedure performed as expected without complications. Patient underwent spinal anesthesias with femoral block after surgery and transported from PACU to floor in stable condition. He was seen by PT and labs and vitals were stable while on the floor. PT recommended dc home with outpatient services, and patient was discharged POD#1 in stable condition. Results Data Completed and Pending Labs on day of discharge: Labs from last 24 hours 07/12/24 07/11/24 07/11/24 05:49 09:45 08:31 WBC 18.3 H D RBC 3.50 L Hgb 9.8 L Hct 31.2 L MCV 89.1 MCH 28.0 MCHC 31.4 L RDW 13.9 Plt Count 266 MPV 11.1 H Neut % (Auto) 82.8 H Lymph % (Auto) 7.2 L [place] % (Auto) 8.9 Eos % (Auto) 0.1 Baso % (Auto) 0.2 Neut # (Auto) 15.2 H Lymph # (Auto) 1.3 [place] # (Auto) 1.6 H Eos # (Auto) 0.0 Baso # (Auto) 0.0 Sodium 136 Potassium 4.5 Chloride 101 Carbon Dioxide 28 Anion Gap 11.5 BUN 23 H Creatinine 1.10 D Estimated Creat Clear 103 Estimated GFR 67 Est GFR ( Amer) 82 D Glucose 160 H POC Glucose 156 H Calcium 8.7 Urine Color Yellow Urine Appearance Clear Urine pH 6.5 Ur Specific [place] 1.015 Urine Protein Negative Urine Glucose (UA) Negative Urine Ketones Negative Urine Blood Negative Urine Nitrate Negative Urine Bilirubin Negative Urine Urobilinogen 0.2 Ur Leukocyte Esterase Negative Urine RBC Occasional Urine WBC None Ur Squamous Epith Cells Occasional Urine Bacteria None DS: Diagnosis Discharge Diagnosis (1) Primary osteoarthritis of left knee: Status: Acute Code(s): M17.12 - Unilateral primary osteoarthritis, left knee Discharge Plan Disposition Patient Disposition: Home, Self-Care Condition: Good Follow up Plan Follow up with: Braulio Gil DO [Staff Physician] - 07/26/24 10:15 am Prescriptions/Medication Reconciliation: New hydrocodone-acetaminophen 5-325 mg tablet 1 tab PO Q4H PRN (Reason: post op pain) Qty: 42 0RF Continued bisoprolol fumarate 5 mg tablet 5 mg PO DAILY Qty: 90 3RF cholecalciferol (vitamin D3) 50 mcg (2,000 unit) capsule 50 mcg PO DAILY Qty: 90 1RF metformin 500 mg tablet extended release 24 hr 500 mg PO BID Qty: 180 3RF losartan 25 mg tablet 25 mg PO DAILY Qty: 30 2RF (DME) blood sugar diagnostic Strip See Rx Instructions .Route ACHS Qty: 100 2RF Rx Instructions: Test 6 times daily or As directed (DME) OneTouch Verio test strips Strip See Rx Instructions .ROUTE .COMPLEX Qty: 100 1RF Dose Instruction: TEST 6 TIMES DAILY OR DIRECTED Rx Instructions: TEST 3 TIMES DAILY OR DIRECTED (DME) lancets [Accu-Chek Fastclix Lancet Drum] Misc See Rx Instructions .Route Qty: 100 3RF Rx Instructions: As directed albuterol sulfate 2.5 mg /3 mL (0.083 %) solution for nebulization 2.5 mg IH Q6H PRN (Reason: shortness of breath or wheezing) Qty: 360 5RF desvenlafaxine succinate [Pristiq] 50 mg tablet extended release 24 hr 50 mg PO DAILY Qty: 90 2RF hydroxyzine pamoate 50 mg capsule 50 mg PO HS Qty: 90 2RF furosemide 40 mg tablet 80 mg PO DAILY atorvastatin 20 mg tablet 20 mg PO DAILY omeprazole 40 mg capsule,delayed release(DR/EC) 40 mg PO DAILY aspirin 81 mg tablet,delayed release (DR/EC) 81 mg PO DAILY levothyroxine 25 mcg tablet 25 mcg PO DAILY Patient Comments: TAKE 1 TABLET BY MOUTH ONCE DAILY ergocalciferol (vitamin D2) [Vitamin D2] 1,250 mcg (50,000 unit) capsule 1,250 mcg PO WEEKLY Patient Comments: TAKE 1 CAPSULE BY MOUTH EVERY WEEK spironolactone 50 mg tablet 100 mg PO DAILY alfuzosin 10 mg tablet extended release 24 hr 10 mg PO DAILY glipizide 5 mg tablet 5 mg PO DAILY Patient Comments: TAKE 1 TABLET BY MOUTH ONCE DAILY FOR DIABETES fluticasone furoate-vilanterol 100-25 mcg/dose blister with device 1 inh INHALATION Q24H Patient Comments: INHALE ONE (1) PUFF BY MOUTH EVERY 24 HOURS FOR COPD Problem Reconciliation Problems Reviewed?: Yes Patient Discharge Instructions ACTIVITY: Ambulate as tolerated DIET: continue same diet Additional Instructions: Keep incision clean and dry. May shower, do not bathe or swim. Change dressing daily or more oftne as needed for drainage. Keep covered until appointment. Call office with any quesitons or concerns. Patient Instructions: Knee Replacement, DI for Surgical Site Infection, Catheter-Associated Urinary Tract Infection Print Language: Occitan Providers Primary Care Provider: Tita Parker Provider: Braulio Gil Attending Provider: Braulio Gil
[2024-07-12 09:18] LABS: Lymphocytes % 5 % (10-50); Monocytes % 7 % (2-9); Neutrophils % 84 % (42-76); Platelet Estimate Normal; RBC Morphology Normal; Total Cells Counted 100
--- NOTE | 2024-07-12 09:47 | CARE MANAGER ---
Patient needed walker. Preferred [employer]us. Information sent.
--- NOTE | 2024-07-12 09:58 | HMH.PTEV ---
Physical Therapy Evaluation Rehab PT IP Evaluation Start: 07/11/24 12:25 Freq: ONCE Status: Active Protocol: Document 07/12/24 09:32 PHORTEVIN (Rec: 07/12/24 09:58 PHORNE [id number]) Subjective/History History History 64 yowm adm to [facility] S/P L TKA due to OA. He has PMH of CAD, COPD, DM. He reports he lives alone, 1 step to enter the home, and he is generally independent with all mobility at baseline. Subjective Subjective He reports expected post-op L knee pain this am, but is agreeable to OOB mobility assessment. Rehab PT IP Eval Objective Appearance Patient Behavior Appropriate Patient Orientation Person,Place,Time Difficulty following instructions none Speech Pattern Clear Ambulation Patient Able to Ambulate Yes Ambulation Observation IP General Gait Pattern Observation Antalgic Gait Ambulation Distance (feet) 25 Ambulation Assistive Device Rolling Walker Ambulation Ability Supervision/Stand by Balance Ability to Arise Able, uses arms to help Sitting Balance Steady, safe Standing Balance Steady, wide stance Dynamic Standing Balance Ability Good Transfers Bed Transfer Ability Supervision/Stand by Chair Transfer Ability Supervision/Stand by Sit to Stand Bed Transfer Ability Supervision/Stand by Sit to Stand Chair Transfer Ability Supervision/Stand by Rehab PT IP prob,goals,plan Problems Date of Evaluation: 07/12/24 PT IP Problems Transfers,Gait Rehab Potential Rehab Potential Good Equipment Needs Assistive Devices Rolling / Wheeled Walker Plan PT Intervention Plan Transfers,Gait,Therapeutic Exercise PT Plan Frequency BID Duration LOS Discharge Goals Bed Transfer Ability Independent Sit to Stand Chair Transfer Ability Independent Ambulation Assistive Device Rolling Walker Ambulation Distance (feet) 40 Discharge Plan PT Discharge Plan Pt is appropriate to return home once medically stable at this time. Recommend outpatient therapy after return home. Skilled therapy is indicated to improve overall mobility, improve L LE ROM, and improve L LE strength in order to return pt to [facility]. Eval Complexity Eval Charge Codes 02580 - High Complexity PHYSICIAN CERTIFICATION: I certify the specified therapy services for Rony Mika Vargas are required, authorized, and reviewed every 30 days.
--- NOTE | 2024-07-12 12:03 | CARE MANAGER ---
Patient requires a walker for ambulation due to mobility impairment that cannot be corrected by a cane. PEG Sahu
--- NOTE | 2024-07-16 11:14 | SW/DCPLANNER ---
Phoned patient x2. Patients phone voicemail is not sat up and cant except calls. Edgar Maritn
== END 2024-07-12 10:49 | disposition home or self-care (01) ==
LOC: 2ND 13:19
PROVIDERS: Admitting Provider Orthopaedic Surgery; PCP Family Medicine; Visit Provider Orthopaedic Surgery
PROC: (CPT 27447; principal; 2024-07-11 09:15)
DX: M17.12 Unilateral primary osteoarthritis, left knee (principal); J44.9 Chronic obstructive pulmonary disease, unspecified; E11.9 Type 2 diabetes mellitus without complications; Z79.899 Other long term (current) drug therapy; Z79.84 Long term (current) use of oral hypoglycemic drugs
CPT/HCPCS: 27447; 73560; 80048; 81001; 82962; 85007; 85025; 85027; 94640; 96374; 97163; C1776; G0378; J0666; J0690; J1100; J2250; J2405; J2704; J7120

== ENCOUNTER 2024-07-17 12:59 | Outpatient (RCR) | payer OTHER, SELFPAY ==
--- NOTE | 2024-07-17 17:33 | HMH.PTOPEV ---
PT Outpatient Evaluation Rehab PT Outpatient Evaluation Start: 07/17/24 17:16 Freq: Status: Active Protocol: Document 07/17/24 17:16 LANE (Rec: 07/17/24 17:32 LANE [id number]) E-signed By Niall Funes, PT Outpatient Therapy Subjective History Subjective History This is the initial PT eval for Rony Vargas, 64 yowm who presents with c/o continued pain, stiffness, swelling, and weakness in the L LE ~ 1 wk S /P L TKA. He presents with incision open to air, with minimal serosanguineous drainage from the incision noted this date. He reports significant pain today, That pain medicine don't even touch it. He also presents using RW for ambulation this date. Chief Complaint Pain,Stiff,Swelling,Weakness Symptom Type Ache Symptoms Relieved By Rest/Positioning,Ice Symptoms Aggravated By Standing,Bending/Stooping, Physical Activity Prior Functional Limitations None Current Functional Limitations Standing,Squatting,Walking, Stairs Symptom Description Constant but Variable Level of pain today (0-10) 10 Pain scale - at its best (0-10) 6 Pain scale - at its worst (0-10) 10 Hip/Knee Eval Gait Observation General Gait Pattern Observation Antalgic Gait Assistive Device Assistive Devices Rolling / Wheeled Walker Palpation Tenderness left Knee Palpation Finding Tenderness Knee Palpation Overall Comment 2/4 throughout L knee MMT Hip Flexion Strength Grade 4 Good Hip Abduction Strength Grade 4 Good Hip Adduction Strength Grade 4 Good Hip Extension Strength Grade 4 Good Knee Extension Strength Grade 2 Poor Knee Flexion Strength Grade 2 Poor ROM Knee Extension Active Range of Motion ( -4 degrees) Knee Flexion Active Range of Motion ( 4-80 degrees) Outpatient Therapy Assessment Impairments Problems/Impairmments Palpation Tenderness,Impaired Range of Motion,Impaired Strength,Impaired Endurance, Impaired Transfers,Impaired Gait Pattern,Impaired Walking, Impaired Standing,Impaired Sitting,Impaired Shower/ Bathing,Impaired Household Care,Impaired Stair Climbing, Increased Edema,Lymphedema Present,Subjective C/O Pain, Impaired Self Care/Self Management Prognosis Rehab Potential Good Comment Expected post-op swelling, stiffness, and pain in the L knee at this time. Skilled therapy indicated to improve ROM, strength, pain, ambulation, and swelling in order to return pt to OF. Clinical Impression Consistent with Diagnosis Yes Consistent with also Additional details: Z96.652 L TKA Short Term Goals Number of Weeks 4 Decreased Palpation Tenderness Yes: 1/4 L knee Increase Range of Motion Yes: 0-100 L knee Increase Strength Yes: L LE at least 4/5 throughout Improve Gait Pattern with Assistive Yes: No antalgic gait with Device least restrictive AD Decrease Subjective C/O Pain Yes: 7/10 L knee Patient to be Ind w/ HEP Yes [facility]ci Goals Number of Weeks 8 Decreased Palpation Tenderness Yes: 0/4 L knee Increase Range of Motion Yes: 0-120 L knee Increase Strength Yes: L LE 5/5 throughout Improve Gait Pattern without Assistive Yes: No antalgic gait pattern Device Decrease Subjective C/O Pain Yes: 4/ 10 at worst L knee. Patient to be Ind w/ Advanced HEP Yes Outpatient Therapy Plan of Care Treatment Plan May Include Therapeutic Exercise Including Home Yes Exercise Program Manual Therapy Techniques Yes Neuromuscular Re-education Yes Therapeutic Activities to Return to Yes Previous Functional/Work Level Gait Training Yes ADL/Self Care Education Yes Thermal Modalities Yes Electrical Stimulation Yes Orthotics/Bracing/Splinting Yes Eval/Re-Eval Yes Frequency Times per week 2-3 Duration Number of Weeks 8 Addendums This patient is a candidate for social Yes or vocational rehab? Patient/Guardian verbally acknowledges Yes understanding of treatment program and consents to further treatment? Patient/Guardian verbally acknowledges Yes understanding of diagnosis, prognosis and goals for treatment? Eval Complexity PT Charges 73504 - High Complexity Shoulder/Elbow Eval Shoulder Objective Measurements Elbow Objective Measurements PHYSICIAN CERTIFICATION: I certify the specified therapy services for Rony Vargas are required, authorized, and reviewed every 30 days.
== END 2024-07-17 23:59 | disposition home or self-care (01) ==
LOC: PT 12:59
PROVIDERS: Visit Provider Orthopaedic Surgery
DX: M17.12 Unilateral primary osteoarthritis, left knee (principal); Z96.652 Presence of left artificial knee joint
CPT/HCPCS: 97014; 97016; 97110; 97163; 97535; G0283

== ENCOUNTER 2024-07-26 10:17 | Outpatient (CLI) | payer OTHER, SELFPAY ==
--- NOTE | 2024-07-26 10:21 | XR_ITS ---
FINAL REPORT CLINICAL HISTORY: Lt knee pain COMPARISON: 07/11/2024 FINDINGS: LEFT KNEE Three views were obtained. There is no fracture or dislocation. Patient is status post left knee arthroplasty. Hardware is unremarkable. There is a large joint effusion. Soft tissue swelling is seen. IMPRESSION: No acute bony or hardware abnormality. Reviewed, Interpreted and Dictated by Bonilla Felipe MD Transcribed by Charley Flood Authenticated and [facility]
== END 2024-07-26 23:59 | disposition home or self-care (01) ==
LOC: RAD 10:18
PROVIDERS: PCP Family Medicine; Visit Provider Orthopaedic Surgery
DX: M25.562 Pain in left knee (principal)
CPT/HCPCS: 73562

== ENCOUNTER 2024-08-07 15:00 | Outpatient (RCR) | payer OTHER, SELFPAY | END 2024-08-07 23:59 | disposition home or self-care (01) | LOC: PT 15:00 | PROVIDERS: Visit Provider Family Medicine | DX: M17.12 Unilateral primary osteoarthritis, left knee (principal) | CPT/HCPCS: 97014; 97016; 97110; 97530; G0283 ==

== ENCOUNTER 2024-08-24 09:12 | Outpatient (CLI) | payer OTHER, SELFPAY ==
[2024-08-24 17:12] LABS: Creatinine,Urine Random 101 mg/dL (Not Estab.)
[2024-08-24 17:15] LABS: Basophils # 0.1 K/mm3 (0-0.2); Basophils % 0.4 % (0.1-2.0); Eosinophils # 0.3 K/mm3 (0.0-0.4); Eosinophils % 2.4 % (0.1-12.0); Hematocrit 38.4 % (42.0-52.0); Hemoglobin 11.7 g/dL (14.1-18.0); Lymphocytes # 2.5 K/mm3 (0.7-4.5); Lymphocytes % 19.7 % (10-50); Mean Corpuscular HGB Conc 30.5 g/dL (31.8-35.4); Mean Corpuscular Hemoglobin 27.5 pg (27.0-31.2); Mean Corpuscular Volume 90.1 fl (80-94); Mean Platelet Volume 11.7 fl (7.4-10.4); Monocytes # 0.9 K/mm3 (0.1-1.0); Monocytes % 6.8 % (1.7-9.3); Neutrophils % 70.2 % (37.0-80.0); Platelet Count 300 K/mm3 (142-424); Red Blood Count 4.26 M/mm3 (4.60-6.20); Red Cell Distribution Width 14.6 % (11.5-17.5); White Blood Count 12.7 K/mm3 (4.8-10.8)
[2024-08-24 17:16] LABS: Microalbumin < 6.000 mg/L (0-16.7)
[2024-08-24 17:42] LABS: Alanine Aminotransferase 21 U/L (12-78); Albumin/Globulin Ratio 1.4 (1.1-1.8); Alkaline Phosphatase 142 U/L (38-126); Anion Gap 17.7 mEq/L (5-15); Aspartate Amino Transferase 22 U/L (17-59); Bilirubin,Total 0.5 mg/dl (0.2-1.3); Blood Urea Nitrogen 34 mg/dl (9-20); Calcium 9.9 mg/dl (8.4-10.2); Carbon Dioxide 26 mmol/L (22.0-30.0); Chloride 95 mmol/L (98-107); Chol/HDL Ratio 4.1 (1-3.5); Cholesterol 144 mg/dl (140-200); Estimated Glomerular Filt Rate 41 ml/min (>60); GFR (African American) 49 ML/MIN (>60); Globulin 2.8 g/dL (1.3-3.2); Glucose 153 mg/dl (74-100); HDL Cholesterol 35 mg/dl (40-60); Potassium 4.7 mmoL/L (3.5-5.1); Sodium 134 mmol/L (136-145); Total Protein,Serum 6.8 g/dl (6.3-8.2); Triglycerides 168 mg/dl (30-150); VLDL Cholesterol 34 mg/dL (0-40)
[2024-08-24 17:53] LABS: Direct LDL Cholesterol 78.72 mg/dL (100-129)
[2024-08-24 18:03] LABS: Triiodothryronine (T3) Uptake 33 % (23.5-40.5)
[2024-08-24 18:04] LABS: Free Thyroxine Index 3.2 ug/dL (5.93-13.13); T4 (Thyroxine) 9.8 ug/dl (5.53-11.0)
[2024-08-24 18:13] LABS: Prostate Specific Ag Screen < 0.1 ng/ml (0.0-4.0)
[2024-08-24 18:17] LABS: Thyroid Stimulating Hormone 5.58 uIU/mL (0.465-4.68)
[2024-08-24 18:32] LABS: Vitamin B12 351 pg/mL (239-931)
[2024-08-24 18:33] LABS: HIV Combo NEGATIVE (Negative)
[2024-08-24 18:40] LABS: Hepatitis C Ab Qual. W/ RFX REACTIVE (Negative)
== END 2024-08-24 23:59 | disposition home or self-care (01) ==
LOC: LAB.DROPOF 08-25 11:07
PROVIDERS: PCP Family Medicine; Visit Provider Family Medicine
DX: E11.22 Type 2 diabetes mellitus with diabetic chronic kidney disease (principal); I12.9 Hypertensive chronic kidney disease with stage 1 through stage 4 chronic kidney disease, or unspecified chronic kidney disease; N18.30 Chronic kidney disease, stage 3 unspecified; E78.5 Hyperlipidemia, unspecified; E66.9 Obesity, unspecified; Z68.39 Body mass index [BMI] 39.0-39.9, adult; Z11.59 Encounter for screening for other viral diseases
CPT/HCPCS: 80053; 80061; 82043; 82570; 82607; 84436; 84443; 84479; 85025; 86803; 87389; 87522; G0103

== ENCOUNTER 2024-09-06 14:13 | Outpatient (CLI) | payer OTHER, SELFPAY ==
[2024-09-06 14:20] LABS: Microscopic, Urine URINE MICROSCOPIC (MICROSCOPIC)
[2024-09-06 14:53] LABS: Appearance,Urine CLEAR (Clear); Bilirubin,Urine Negative (Negative); Blood, Urine Negative (Negative); Color,Urine YELLOW (Yellow); Glucose,Urine (UA) Negative (Negative); Hematocrit 35.1 % (42.0-52.0); Ketones,Urine Negative (Negative); Leukocyte Esterase,Urine Negative (Negative); Mean Corpuscular HGB Conc 31.3 g/dL (31.8-35.4); Mean Corpuscular Hemoglobin 27.9 pg (27.0-31.2); Mean Corpuscular Volume 89.1 fl (80-94); Nitrate,Urine Negative (Negative); Nucleated Red Blood Cells # 0 10^3/uL; Nucleated Red Blood Cells % 0 %; Platelet Count 278 K/mm3 (142-424); Protein,Urine Negative (Negative); Red Blood Count 3.94 M/mm3 (4.60-6.20); Red Cell Distribution Width-SD 45.8 fL; Specific Gravity, Urine 1.015 (1.005-1.030); Urobilinogen,Urine 0.2 EU/dl (0.2); White Blood Count 10.7 K/mm3 (4.8-10.8)
[2024-09-06 15:16] LABS: Bacteria,Urine Trace /lpf
[2024-09-06 15:18] LABS: Amorphous Sediment,Urine Trace /lpf
[2024-09-06 15:28] LABS: Albumin Level 3.8 g/dl (3.5-5.0); Anion Gap 13.3 mEq/L (5-15); Blood Urea Nitrogen 21 mg/dl (9-20); Calcium 9.5 mg/dl (8.4-10.2); Carbon Dioxide 25 mmol/L (22.0-30.0); Chloride 102 mmol/L (98-107); Estimated Glomerular Filt Rate 61 ml/min (>60); GFR (African American) 74 ML/MIN (>60); Glucose 100 mg/dl (74-100); Phosphorous 2.8 mg/dl (2.5-4.5); Potassium 4.3 mmoL/L (3.5-5.1); Sodium 136 mmol/L (136-145)
[2024-09-06 15:42] LABS: Intact Parathyroid Hormone 63.5 pg/mL (7.5-53.5)
[2024-09-06 15:47] LABS: 25-OH Vitamin D, Total 72.8 ng/mL (30-100)
[2024-09-06 16:41] LABS: Creatinine,Urine Random 19 mg/dL (Not Estab.)
== END 2024-09-06 23:59 | disposition home or self-care (01) ==
LOC: LAB 14:13
PROVIDERS: PCP Family Medicine; Visit Provider Internal Medicine Nephrology
DX: N18.30 Chronic kidney disease, stage 3 unspecified (principal); G47.33 Obstructive sleep apnea (adult) (pediatric); G47.36 Sleep related hypoventilation in conditions classified elsewhere
CPT/HCPCS: 36415; 80069; 81001; 82306; 82570; 83970; 84156; 85027; G0399

== ENCOUNTER 2024-11-27 12:29 | Outpatient (CLI) | payer OTHER, SELFPAY ==
--- NOTE | 2024-11-27 12:32 | XR_ITS ---
FINAL REPORT CLINICAL HISTORY: Left SHoulder pain COMPARISON: None FINDINGS: LEFT SHOULDER 2 views of the left shoulder were obtained. There is no acute fracture or dislocation. There is mild hypertrophic change of the acromioclavicular joint. Soft tissues are unremarkable. IMPRESSION: No acute bony abnormality. Reviewed, Interpreted and Dictated by Dionisio Espinoza MD Transcribed by Nelly Castillo Authenticated and [facility]
--- OUTSIDE RECORDS SUMMARY | 2024-11-27 12:32 | XMS_ITS | Clinical Summary ---
Author Organization [facility] Address [address] [place] [address] Care Team Providers Care Research Coordinator Name Role Phone Ravinder Wilkes MD Primary Care Provider [phone] Allergies No known active allergies Medications albuterol 108 (90 Base) MCG/ACT inhaler TAKE 2 PUFFS EVERY 4 OR 6 HOURS NEEDED 06/02/2018 Active atorvastatin (Lipitor) 20 MG tablet 07/02/2019 Active bisoprolol (Zebeta) 5 MG tablet 07/02/2019 Active furosemide (Lasix) 40 MG tablet TAKE 1 TABLET TWICE DAILY. 01/09/2019 Active metFORMIN (Glucophage) 500 MG tablet TAKE 1 TABLET TWICE DAILY WITH MEALS. 07/02/2019 Active omeprazole (PriLOSEC) [address] capsule TAKE ONE CAPSULE BY MOUTH EVERY DAY 01/31/2020 Active spironolactone (Aldactone) 50 MG tablet TAKE 2 TABLETS DAILY. 07/18/2018 Active glipiZIDE (Glucotrol) 5 MG tablet Take 1 tablet (5 mg) by mouth 2 (two) times a day before meals. Active ergocalciferol 1.25 MG (96045 UT) capsule 05/08/2022 Active cholecalciferol (Vitamin D-3) 250 MCG (64260 UT) capsule Take 10,000 Units by mouth 1 (one) time each day. Active HM Aspirin EC Low Dose 81 MG EC tablet 01/21/2023 Active buPROPion XL (Wellbutrin XL) 150 MG 24 hr tablet 05/04/2023 Active lisinopril 5 MG tablet 08/03/2023 Active alfuzosin (Uroxatral) 10 MG 24 hr tablet Take 1 tablet by mouth daily. 02/04/2024 Active levothyroxine (Synthroid, Levoxyl) 25 MCG tablet Take 1 tablet by mouth daily. 09/06/2024 Active Breo Ellipta 100-25 MCG/ACT aerosol powder Place 1 puff into mouth between cheek and gum daily. 01/05/2024 Active celecoxib (CeleBREX) 200 MG capsule Take 1 capsule by mouth 2 times a day. Active desvenlafaxine (Pristiq) 50 MG 24 hr tablet Take 1 tablet by mouth daily. Do not crush, chew, or split. Active Active Problems Problem Noted Date Diagnosed Date Obesity due to excess calories 05/04/2021 Proteinuria 01/24/2020 CKD (chronic kidney disease) stage 3, GFR 30-59 ml/min 07/02/2019 GERD (gastroesophageal reflux disease) 6 Benign essential hypertension 12/26/2013 Encounters Date Type Department Care Team Description 09/14/2024 10:40 AM EDT Office Visit [facility] [address] [place] [address] Pam Castro APRN Stage 3 chronic kidney disease, unspecified whether stage 3a or 3b CKD (CMS/HCC) (Primary Dx); Essential hypertension; Chronic kidney disease-mineral and bone disorder; Microalbuminuria; Anemia due to stage 3 chronic kidney disease, unspecified whether stage 3a or 3b CKD 09/14/2024 Travel from Last 3 Months Immunizations Immunization Administration Dates Next Due Moderna COVID-19 Vaccine (Claim Technician) 12+ years 11/2020 Pfizer-BioNTech COVID-19 Vaccine (Purple Cap) 12 + 09/10/2020,08/13/2020 Family History Medical History Relation Name Comments Cardiac disorder Father Diabetes Father Lung cancer Maternal Grandfather Arthritis Mother Tuberculosis Sister Relation Name Status Comments Father Maternal Grandfather Mother Sister Social History Tobacco Use Types Packs/Day Years Used Date Smoking Tobacco: Former Smokeless Tobacco: Never Tobacco Cessation:Counseling Given: Not Answered Alcohol Use Standard Drinks/Week Comments Not Currently 0 (1 standard drink = 0.6 oz pur e alcohol) PHQ-2 Answer Date Recorded Patient Health Questionnaire-2 Score 6 08/25/2023 PHQ-9 Answer Date Recorded Patient Health Questionnaire-9 Score 11 08/25/2023 Sex and Gender Information Value Date Recorded Sex Assigned at Not on file Legal Sex Male 8:22 PM EDT Gender Identity Not on file Sexual Orientation Not on file Last Filed Vital Signs Vital Sign Reading Time Taken Comments Blood Pressure 108/74 09/14/2024 10:39 AM EDT Pulse 77 09/14/2024 10:39 AM EDT Temperature 36.7 C (98 F) 11/21/2019 9:41 AM EDT Respiratory Rate 18 09/14/2024 10:39 AM EDT Oxygen Saturation 95% 09/14/2024 10:39 AM EDT Inhaled Oxygen Concentration - - Weight 110 kg (242 lb) 09/14/2024 10:39 AM EDT Height 167.6 cm (5' 6 ) 09/14/2024 10:39 AM EDT Body Mass Index 39.06 09/14/2024 10:39 AM EDT Plan of Treatment Upcoming Encounters Date Type Department Care Team (Late st Contact Info) Description 04/05/2025 8:40 AM EST Office Visit [facility] [address] [place] [address] Pam Castro, PROGRAM DIRECTOR [address] [address] Health Maintenance Due Date Last Done Comments [facility]-Diabetes: Hemoglobin A1C 1960 [facility]-HIV Screening 1960 [facility]-Hepatitis C Screening 1960 [facility]-/Child/Adol SDOH Screenings 1960 Diabetes: Dental Exam 1970 [facility]- SDOH Screenings 1978 [facility]-Adult SDOH Screenings 1978 [facility]-DTaP,Tdap,and Td Vaccine s (1 - Tdap) 1979 [facility]-Pneumococcal Vaccine: 50 + Years (1 of 2 - PCV) 1979 CT Colonography 2005 Colonoscopy 2005 FIT-DNA 2005 FIT 2005 FOBT 2005 Sigmoidoscopy 2005 [facility]-Colorectal Cancer Screening 2005 [facility]-Zoster Vaccines (1 of 2) 2010 [facility]-RSV Vaccine: 60+ Years o r (1 - Risk 60-74 years 1-dose series) 2020 [id number] Vaccine ( season) 2024 03/29/2021, 09/10/2020, 08/13/2020 [facility]-Depression Screening 08/24/2024 024, 08/25/2023 [facility]-Influenza Vaccine (#1) 2025 [facility]-Obesity Intervention Completed 025, 08/25/2023 HPV Vaccines Aged Out No longer eligi ble based on patient's age to complete this topic [facility]-HIB Vaccines Aged Out No longer e ligible based on patient's age to complete this topic [facility]-Hepatitis A Vaccines Aged Out No longer eligible based on patient's age to complete this topic [facility]-IPV Vaccines Aged Out No longer e ligible based on patient's age to complete this topic [facility]-Rotavirus Vaccines Aged Out No lo nger eligible based on patient's age to complete this topic Insurance [employer] MEDICAID Care Teams Research Coordinator Relationship Specialty Start Date End Date Ravinder Wilkes MD [address] [id number] PCP - General 10/03/20
== END 2024-11-27 23:59 | disposition home or self-care (01) ==
LOC: RAD 12:30
PROVIDERS: PCP Family Medicine; Visit Provider Orthopaedic Surgery
DX: M25.512 Pain in left shoulder (principal)
CPT/HCPCS: 73030

== ENCOUNTER 2024-12-24 08:48 | Outpatient (CLI) | payer OTHER, SELFPAY ==
--- OUTSIDE RECORDS SUMMARY | 2024-12-27 08:52 | XMS_ITS | Clinical Summary ---
Author Organization [facility] Address [address] [place] [address] Care Team Providers Care Internet Marketing Consultant Name Role Phone Ravinder Wilkes MD Primary Care Provider [phone] Allergies No known active allergies Medications albuterol [...] day before meals. Active ergocalciferol 1.25 MG (33417 UT) capsule 05/08/2022 Active cholecalciferol (Vitamin D-3) 250 MCG (12156 UT) capsule Take 10,000 Units by mouth [...] Administration Dates Next Due Moderna COVID-19 Vaccine (Marketing Project Manager) 12+ years 11/2020 Pfizer-BioNTech COVID-19 Vaccine (Purple [...] Description 04/05/2025 8:40 AM EST Office Visit [facility] [address] [place] [address] Pam Castro, CLINICAL ASSISTANT PROFESSOR [address] [facility] [address] [place] [address] Health Maintenance Due Date Last [...] - Risk 60-74 years 1-dose series) 2020 [id number] Vaccine ( - 2023- season) 2024 03/29/2021, [...] Insurance [employer] MEDICAID Care Teams Internet Marketing Consultant Relationship Specialty Start Date End Date Ravinder Wilkes MD [address] [place] [address] PCP - General 10/03/20
== END 2024-12-24 23:59 ==
LOC: LAB.DROPOF 12-27 08:49
PROVIDERS: PCP Family Medicine; Visit Provider Family Medicine
DX: R79.89 Other specified abnormal findings of blood chemistry (principal)
CPT/HCPCS: 83970

== ENCOUNTER 2024-12-24 14:00 | Outpatient (CLI) | payer OTHER, SELFPAY ==
[2024-12-24 20:21] LABS: Free Thyroxine Index 2.9 ug/dL (5.93-13.13); T4 (Thyroxine) 8.9 ug/dl (5.53-11.0); Triiodothryronine (T3) Uptake 33 % (23.5-40.5)
[2024-12-24 20:34] LABS: Thyroid Stimulating Hormone 2.43 uIU/mL (0.465-4.68)
--- OUTSIDE RECORDS SUMMARY | 2024-12-25 11:09 | XMS_ITS | Clinical Summary ---
Author Organization [facility] Address [address] [place] [address] Care Team Providers Care Loft Worker Pile Driving Name Role Phone Ravinder Wilkes MD Primary Care Provider [phone] Allergies No known active allergies Medications albuterol [...] day before meals. Active ergocalciferol 1.25 MG (75947 UT) capsule 05/08/2022 Active cholecalciferol (Vitamin D-3) 250 MCG (26919 UT) capsule Take 10,000 Units by mouth [...] reflux disease) 6 Benign essential hypertension 12/26/2013 Immunizations Immunization Administration Dates Next Due Moderna COVID-19 Vaccine (Crystal Cutter) 12+ years 11/2020 Pfizer-BioNTech COVID-19 Vaccine (Purple [...] Description 04/05/2025 8:40 AM EST Office Visit [facility] [address] [place] [address] Pam Castro, MOLDER CLOSED MOLDS [address] [facility] [address] [place] [address] Health Maintenance Due Date Last Done Comments [facility]-Diabetes: Hemoglobin A1C 1960 [facility]-HIV Screening 1960 [facility]-Hepatitis C Screening 1960 [facility]-Infant/Child/Adol SDOH Screenings 1960 Diabetes: Dental Exam 1970 [...] - Risk 60-74 years 1-dose series) 2020 [id number] Vaccine ( - 2023- season) 2024 03/29/2021, 09/10/2020, 08/13/2020 [facility]-Depression Screening [...] Insurance [employer]ID Care Teams Loft Worker Pile Driving Relationship Specialty Start Date End Date Ravinder Wilkes MD [address] [place] [address] PCP - General 10/03/20
== END 2024-12-24 23:59 | disposition home or self-care (01) ==
LOC: LAB.DROPOF 12-25 11:04
PROVIDERS: PCP Family Medicine; Visit Provider Family Medicine
DX: E03.9 Hypothyroidism, unspecified (principal); R79.89 Other specified abnormal findings of blood chemistry
CPT/HCPCS: 84436; 84443; 84479

== ENCOUNTER 2025-01-11 09:53 | Outpatient (CLI) | payer OTHER, SELFPAY ==
--- OUTSIDE RECORDS SUMMARY | 2025-01-11 09:56 | XMS_ITS | Clinical Summary ---
Author Organization [facility] Address [address] [place] [address] Care Team Providers Care Gasoline Truck Crane Operator Name Role Phone Ravinder Wilkes MD Primary Care Provider [phone] Allergies No known active allergies Medications albuterol [...] day before meals. Active ergocalciferol 1.25 MG (43315 UT) capsule 05/08/2022 Active cholecalciferol (Vitamin D-3) 250 MCG (46073 UT) capsule Take 10,000 Units by mouth [...] Administration Dates Next Due Moderna COVID-19 Vaccine (Extension Professor) 12+ years 11/2020 Pfizer-BioNTech COVID-19 Vaccine (Purple [...] Description 04/05/2025 8:40 AM EST Office Visit [facility] [address] [place] [address] Pam Castro, TERRITORY SALES CONSULTANT [address] [facility] [address] [place] [address] Health Maintenance Due Date Last [...] - Risk 60-74 years 1-dose series) 2020 [id number] Vaccine ( - 2023- season) 2024 03/29/2021, [...] Insurance [employer] MEDICAID Care Teams Gasoline Truck Crane Operator Relationship Specialty Start Date End Date Ravinder Wilkes MD [address] [place] [address] PCP - General 10/03/20
== END 2025-01-11 23:59 | disposition home or self-care (01) ==
LOC: RT 09:54
PROVIDERS: PCP Family Medicine; Visit Provider Specialist
DX: J44.9 Chronic obstructive pulmonary disease, unspecified (principal); G47.33 Obstructive sleep apnea (adult) (pediatric); R94.2 Abnormal results of pulmonary function studies
CPT/HCPCS: 94060; 94618; 94726; 94729

== ENCOUNTER 2025-02-25 09:40 | Outpatient (CLI) | payer MEDICARE, OTHER, SELFPAY ==
[2025-02-25 16:18] LABS: Hematocrit 32.9 % (42.0-52.0); Hemoglobin 10.7 g/dL (14.1-18.0); Immature Granulocytes % 1.1 %; Mean Corpuscular HGB Conc 32.5 g/dL (31.8-35.4); Mean Corpuscular Hemoglobin 28.6 pg (27.0-31.2); Mean Corpuscular Volume 88.0 fl (80-94); Nucleated Red Blood Cells % 0 %; Platelet Count 308 K/mm3 (142-424); Red Blood Count 3.74 M/mm3 (4.60-6.20); Red Cell Distribution Width-SD 46.6 fL; White Blood Count 10.5 K/mm3 (4.8-10.8)
[2025-02-25 16:55] LABS: Alanine Aminotransferase 20 U/L (12-78); Albumin Level 3.9 g/dl (3.5-5.0); Albumin/Globulin Ratio 1.6 (1.1-1.8); Alkaline Phosphatase 166 U/L (38-126); Anion Gap 17.2 mEq/L (5-15); Aspartate Amino Transferase 24 U/L (17-59); Bilirubin,Total 0.4 mg/dl (0.2-1.3); Blood Urea Nitrogen 22 mg/dl (9-20); Calcium 9.6 mg/dl (8.4-10.2); Carbon Dioxide 21 mmol/L (22.0-30.0); Chloride 102 mmol/L (98-107); Cholesterol 130 mg/dl (140-200); Creatinine,Serum 1.40 mg/dl (0.66-1.25); Estimated Glomerular Filt Rate 51 ml/min (>60); GFR (African American) 62 ML/MIN (>60); Globulin 2.5 g/dL (1.3-3.2); Glucose 147 mg/dl (74-100); HDL Cholesterol 32 mg/dl (40-60); Potassium 4.2 mmoL/L (3.5-5.1); Sodium 136 mmol/L (136-145); Total Protein,Serum 6.4 g/dl (6.3-8.2); Triglycerides 127 mg/dl (30-150)
--- OUTSIDE RECORDS SUMMARY | 2025-02-26 03:23 | XMS_ITS | Clinical Summary ---
Author Organization [facility] Address [address] [place] [address] Care Team Providers Care Poured Wall Foreman Name Role Phone Ravinder Wilkes MD Primary Care Provider [phone] Allergies No known active allergies Medications albuterol [...] day before meals. Active ergocalciferol 1.25 MG (67546 UT) capsule 05/08/2022 Active cholecalciferol (Vitamin D-3) 250 MCG (52176 UT) capsule Take 10,000 Units by mouth [...] Administration Dates Next Due Moderna COVID-19 Vaccine (Stitch Cleaner) 12+ years 11/2020 Pfizer-BioNTech COVID-19 Vaccine (Purple [...] Description 04/05/2025 8:40 AM EST Office Visit [facility] [address] [place] [address] Pam Castro, SPECIAL SERVICES DIRECTOR [address] [facility] [address] [place] [address] Health Maintenance Due Date Last [...] - Risk 60-74 years 1-dose series) 2020 [facility]-Depression Screening 08/24/2024 024, 08/25/2023 [id number] Vaccine (2024- season) 2025 03/29/2021, 09/10/2020, 08/13/2020 [facility]-Influenza Vaccine (#1) 2025 [facility]-Obesity Intervention Completed [...] Insurance [employer] MEDICAID Care Teams Poured Wall Foreman Relationship Specialty Start Date End Date Ravinder Wilkes MD [address] [place] [address] PCP - General 10/03/20
== END 2025-02-25 23:59 ==
LOC: LAB.DROPOF 02-26 03:21
PROVIDERS: PCP Student in an Organized Health Care Education/Training Program; Visit Provider Student in an Organized Health Care Education/Training Program
DX: D64.9 Anemia, unspecified (principal); E78.5 Hyperlipidemia, unspecified; N18.30 Chronic kidney disease, stage 3 unspecified
CPT/HCPCS: 80053; 80061; 85025

== ENCOUNTER 2025-03-14 13:20 | Outpatient (CLI) | payer MEDICARE, OTHER, SELFPAY ==
--- NOTE | 2025-03-14 13:30 | CT_ITS ---
FINAL REPORT CLINICAL HISTORY: lung cancer screening. former smoker. quit 5 years ago. 2ppd for 45 years. COPD, emphysema. COMPARISON: 05/12/2023 FINDINGS: CT CHEST LOW DOSE SCREENING HISTORY: Screening exam for lung cancer. DOSE: CTDI vol: 2.90 mGy, DLP: 102.12 mGy*cm TECHNIQUE: Axial CT without IV contrast administration using low dose protocol. This study was performed with techniques to keep radiation doses as low as reasonably achievable, (ALARA). Individualized dose reduction techniques using automated exposure control or adjustment of mA and/or kV according to the patient's size were employed. No suspicious pulmonary nodule. There is stable right lower lobe scarring with rounded atelectasis and calcified pleural thickening. No pleural or pericardial effusion is seen. Mildly enlarged right paratracheal lymph node measures 17 x 6 mm, previously 17 x 10 mm and improved. No new adenopathy seen.. IMPRESSION: Chronic changes as above with improved right paratracheal adenopathy. No evidence of neoplasm. LUNG RADS CATEGORY 1 RECOMMENDATION: 12 month LDCT follow up Reviewed, Interpreted and Dictated by Bonilla Felipe MD Transcribed by Sho Chahal Authenticated and [facility]
== END 2025-03-14 23:59 | disposition home or self-care (01) ==
LOC: RAD 13:21
PROVIDERS: PCP Family Medicine; Visit Provider Student in an Organized Health Care Education/Training Program
DX: J44.9 Chronic obstructive pulmonary disease, unspecified (principal); Z87.891 Personal history of nicotine dependence; Z12.2 Encounter for screening for malignant neoplasm of respiratory organs; R59.0 Localized enlarged lymph nodes; R91.8 Other nonspecific abnormal finding of lung field
CPT/HCPCS: 71271

== ENCOUNTER 2025-04-11 10:12 | Outpatient (CLI) | payer MEDICARE, OTHER, SELFPAY ==
--- OUTSIDE RECORDS SUMMARY | 2025-04-05 08:40 | XMS_ITS | Encounter Summary ---
Author Organization [facility] Address [address] [place] [address] Care Team Providers Care Front End Software Developer Name Role Phone Ravinder Wilkes MD Primary Care Provider [phone] Reason for Referral * Consultation (Routine) - Authorized Specialty Diagnoses / Procedures Referred By Bart marquez Referred To Contact Diagnoses Stage 3 chronic kidney disease, unspecified whether stage 3a or 3b CKD (CMS/HCC) Pam Castro APRN [address] [address] Phone: tel: fax: Referral ID Status Reason Start Date Expiration Date V isits Requested Visits Authorized [id number] Authorized 04/05/2025 10/05/2026 1 1 Reason for Visit * Reason Comments Follow-up Patient is a 60 year old male that presents to the clinic on this date for a follow up. Patient denies pain at the current moment. Encounter Details Date Type Department Care Team ([facility] st Contact Info) Description 04/05/2025 8:40 AM EST Office Visit [facility] [address] [place] [address] Pam Castro APRN [address] [address] Stage 3 chronic kidney disease, unspecified whether stage 3a or 3b CKD (CMS/HCC) (Primary Dx); Essential hypertension; Chronic kidney disease-mineral and bone disorder; Microalbuminuria; Anemia due to stage 3 chronic kidney disease, unspecified whether stage 3a or 3b CKD; Diabetes mellitus due to underlying condition with diabetic chronic kidney disease, unspecified CKD stage, unspecified whether termite treater insulin use Social History Tobacco Use Types Packs/Day Years [...] on file Sexual Orientation Not on file documented as of this encounter Last Filed Vital Signs Vital Sign Reading Time Taken Comments Blood Pressure 122/68 04/05/2025 8:38 AM EST Pulse 68 04/05/2025 8:38 AM EST Temperature - - Respiratory Rate 22 04/05/2025 8:38 AM EST Oxygen Saturation 94% 04/05/2025 8:38 AM EST Inhaled Oxygen Concentration - - Weight 114 kg (252 lb) 04/05/2025 8:38 AM EST Height 177.8 cm (5' 10 ) 04/05/2025 8:38 AM EST Body Mass Index 36.16 04/05/2025 8:38 AM EST documented in this encounter Miscellaneous Notes * Progress Notes - Pam Castro APRN - 04/05/2025 8:40 AM EST SUBJECTIVE Rony Vargas is a 65 y.o. male who presents for follow-up of CKD 3. Notes he is now on metformin and his lisinopril has been adjusted to losartan. Feeling at normal state of health. Denies hematuria, dysuria, abd pain, SOA, CP. OBJECTIVE Vitals: 04/05/25 0838 BP: 122/68 Pulse: 68 Resp: 22 SpO2: 94% PHYSICAL EXAMINATION Gen: NAD, obese HEENT: AT/NC, EOMI, MMM Neck: trachea midline, supple Skin: warm, dry CV: RRR, no edema Pulm: no increased work of breathing, symmetric chest expansion, good inspiratory/expiratory effort GI: abd soft, ND Neuro: alert, interactive, cortical function grossly intact LAB RESULTS Outside labs reviewed. ASSESSMENT/PLAN Assessment: - CKD 3: related to DM. Cr ranging 1.2-1.5, eGFR 50-62. Current Cr 1.4 and stable UA bland. - Microalbuminuria/ Proteinuria: UPC 0.1-0.3 mg/mg. losartan 25mg daily and spironolactone 100 mg daily. - HTN: controlled. Back on losartan, spironolactone, lasix 40 mg bid, bisoprolol 5 mg daily. - Anemia in CKD: goal 10-12 g/dL. 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 Plan/ Recs: - continue current BP regimen. - PTH and vit D at next visit along with other renal labs - continue diabetic control RTC in 6 months Note to Patient: The Cure Act makes medical noted like these available to patients in the interest of transparency. However, be advised this is a medical document. It is intended as peerto peer communication. It is written in medical language and may contain abbreviations or verbiage that are unfamiliar. It may appear blunt or direct. Medical documents are intended to carry relevantinformation, facts as evident, and the clinical opinion of the physician documented in this encounter Plan of Treatment Upcoming Encounters Date Type Department Care Team ([facility] st Contact Info) Description 11/01/2025 9:40 AM EDT Office Visit [facility] [address] [place] [address] Pam Castro APRN [address] [address] Scheduled Orders Name Type Priority Associated Diagnoses Orde r Schedule Renal Function Panel, Plasma Lab Routine Stage 3 chronic kidney disease, unspecified whether stage 3a or 3b CKD (CMS/HCC) Expected: 04/05/2025 (Approximate), Expires: 10/03/2026 CBC W/O Differential Lab Routine Stage 3 chronic kidney disease, unspecified whether stage 3a or 3b CKD (CMS/HCC) Expected: 04/05/2025 (Approximate), Expires: 10/03/2026 Urinalysis with reflex microscopic (Culture NOT Included) Lab Routine Stage 3 chronic kidney disease, unspecified whether stage 3a or 3b CKD ([facility]) Expected: 04/05/2025 (Approximate), Expires: 10/03/2026 Creatinine, Random, Urine Lab Routine Stage 3 chronic kidney disease, unspecified whether stage 3a or 3b CKD ([facility]) Expected: 04/05/2025 (Approximate), Expires: 10/03/2026 Albumin-creatinine ratio, urine, random Lab Routine Stage 3 chronic kidney disease, unspecified whether stage 3a or 3b CKD ([facility]) Expected: 04/05/2025 (Approximate), Expires: 10/03/2026 Protein, Random, Urine with Creatinine Lab Routine Stage 3 chronic kidney disease, unspecified whether stage 3a or 3b CKD ([facility]) Expected: 04/05/2025 (Approximate), Expires: 10/03/2026 PTH Intact Total Lab Routine Stage 3 chronic kidney disease, unspecified whether stage 3a or 3b CKD ([facility]) Expected: 04/05/2025 (Approximate), Expires: 10/03/2026 Vitamin D 25 Hydroxy Lab Routine Stage 3 chronic kidney disease, unspecified whether stage 3a or 3b CKD ([facility]) Expected: 04/05/2025 (Approximate), Expires: 10/03/2026 Scheduled Referrals Name Type Priority Associated Diagnoses Orde r Schedule Follow Up Nephrology Outpatient Referral Routine Stage 3 chronic kidney disease, unspecified whether stage 3a or 3b CKD ([facility]) Expected: 10/03/2025 (Approximate), Expires: 05/05/2026 documented as of this encounter Visit Diagnoses Diagnosis Stage 3 chronic kidney disease, unspecified whether stage 3a or 3b CKD ([facility])- Primary Essential hypertension Unspecified essential hypertension Chronic kidney disease-mineral and bone disorder Microalbuminuria Proteinuria Anemia due to stage 3 chronic kidney disease, unspecified whether stage 3a or 3b CKD Diabetes mellitus due to underlying condition with diabetic chronic kidney disease, unspecified CKD stage, unspecified whether termite treater insulin use documented in this encounter Additional Health Concerns Assessment Noted Time PHQ-9 Depression Total Score: 11 024 2:22 PM EDT A fall risk assessment has been complete d for the patient 08/25/2023 2:25 PM EDT A Body Mass Index follow-up plan has been documented for the patient 04/05/2025 8:53 AM EST documented as of this encounter Care Teams Front End Software Developer Relationship Specialty Start Date End Date Ravinder Wilkes MD [address] [place] [address] PCP - General 10/03/20 documented as of this encounter
[2025-04-11 15:20] LABS: Hemoglobin A1C 6.3 % (4.0-6.0)
[2025-04-11 15:47] LABS: Alanine Aminotransferase 20 U/L (12-78); Albumin Level 4.2 g/dl (3.5-5.0); Albumin/Globulin Ratio 1.8 (1.1-1.8); Alkaline Phosphatase 172 U/L (38-126); Anion Gap 14.1 mEq/L (5-15); Aspartate Amino Transferase 24 U/L (17-59); Bilirubin,Total 0.3 mg/dl (0.2-1.3); Blood Urea Nitrogen 28 mg/dl (9-20); Calcium 9.9 mg/dl (8.4-10.2); Carbon Dioxide 26 mmol/L (22.0-30.0); Chloride 99 mmol/L (98-107); Creatinine,Serum 1.40 mg/dl (0.66-1.25); Estimated Glomerular Filt Rate 51 ml/min (>60); GFR (African American) 62 ML/MIN (>60); Globulin 2.4 g/dL (1.3-3.2); Glucose 148 mg/dl (74-100); Potassium 4.1 mmoL/L (3.5-5.1); Sodium 135 mmol/L (136-145); Total Protein,Serum 6.6 g/dl (6.3-8.2)
--- OUTSIDE RECORDS SUMMARY | 2025-04-15 10:32 | XMS_ITS | Encounter Summary ---
Author Organization [facility] Address [address] [place] [address] Care Team Providers Care Assembly Line Robot Operator Name Role Phone Ravinder Wilkes MD Primary Care Provider [phone] Encounter Details Date Type Department Care Team (Latest Contact Info) Description 04/05/2025 Travel Social History Tobacco Use Types Packs/Day Years Used Date Smoking Tobacco: Former Smokeless Tobacco: Never Alcohol Use Standard Drinks/Week Comments Not Currently [...] on file documented as of this encounter Plan of Treatment Upcoming Encounters Date Type Department Care Team (Late st Contact Info) Description 11/01/2025 9:40 AM EDT Office Visit [facility] [address] [place] [phone] Pam Castro, DIRT BIKE MECHANIC [address] [address] documented as of this encounter Visit Diagnoses Not on filedocumented in this encounter Additional Health Concerns Assessment Noted Time PHQ-9 Depression Total Score: 11 024 2:22 PM EDT A fall risk assessment has been complete d for the patient 08/25/2023 2:25 PM EDT A Body Mass Index follow-up plan has been documented for the patient 04/05/2025 8:53 AM EST documented as of this encounter Care Teams Assembly Line Robot Operator Relationship Specialty Start Date End Date Ravinder Wilkes MD [address] [place] [address] PCP - General 10/03/20 documented as of this encounter
--- OUTSIDE RECORDS SUMMARY | 2025-04-15 10:32 | XMS_ITS | Clinical Summary ---
Author Organization [facility] Address [address] [place] [address] Care Team Providers Care Irrigation Installation Specialist Name Role Phone Ravinder Wilkes MD Primary Care Provider [phone] Allergies No known active allergies Medications albuterol [...] day before meals. Active ergocalciferol 1.25 MG (46679 UT) capsule 05/08/2022 Active cholecalciferol (Vitamin D-3) 250 MCG (57659 UT) capsule Take 10,000 Units by mouth [...] Do not crush, chew, or split. Active cholecalciferol (Vitamin D-3) 50 MCG (1999 UT) capsule Take 1 capsule by mouth daily. 03/26/2025 Active aspirin 81 MG EC tablet Take 1 tablet by mouth daily. Active omeprazole (PriLOSEC) [address] capsule Take 1 capsule by mouth daily. Do not crush or chew. Active metFORMIN, OSM, (Fortamet) 500 MG 24 hr tablet Take 1 tablet by mouth 1 time each day with dinner. Do not crush, chew, or split. Active Active Problems Problem Noted Date Diagnosed Date Obesity due to excess calories 05/04/2021 Proteinuria 01/24/2020 CKD (chronic kidney disease) stage 3, GFR 30-59 ml/min 07/02/2019 GERD (gastroesophageal reflux disease) 6 Benign essential hypertension 12/26/2013 Encounters Date Type Department Care Team Description 04/05/2025 8:40 AM EST Office Visit [...] kidney disease, unspecified CKD stage, unspecified whether exterminator termite insulin use 04/05/2025 Travel from Last 3 Months Immunizations Immunization Administration Dates Next Due Moderna COVID-19 Vaccine (Bank Secrecy Act Officer) 12+ years 11/2020 [email or web address] COVID-19 Vaccine (Purple Cap) 12 + 09/10/2020,08/13/2020 [...] Pulse 68 04/05/2025 8:38 AM EST Temperature 36.7 C (98 F) 11/21/2019 9:41 AM EDT Respiratory Rate 22 04/05/2025 8:38 AM EST Oxygen Saturation 94% 04/05/2025 8:38 AM EST Inhaled Oxygen Concentration - - Weight 114 kg (252 lb) 04/05/2025 8:38 AM EST Height 177.8 cm (5' 10 ) 04/05/2025 8:38 AM EST Body Mass Index 36.16 04/05/2025 8:38 AM EST Plan of Treatment Upcoming Encounters Date Type Department Care Team (Late st Contact Info) Description 11/01/2025 9:40 AM EDT Office Visit [facility] [address] [place] [phone] Pam Castro F, ELECTRONIC SPECIALIST [address] [address] Health Maintenance Due Date Last Done Comments [facility]-Diabetes: Hemoglobin A1C 1960 [facility]-Hepatitis C Screening 1960 [facility]Medicare Annual Wellness (AWV) 1960 [facility]-Infant/Child/Adol SDOH Screenings 1960 Diabetes: Dental [...] series) 2020 [facility]-Depression Screening 08/24/2024 024, 08/25/2023 [id number] Vaccine ( - season) 2025 03/29/2021, 09/10/2020, 08/13/2020 [facility]-Influenza Vaccine (#1) 2025 [facility]-Abdominal Aortic Aneurys m (AAA) Screening 2025 [facility]-Obesity Intervention Completed 025, 09/14/2024, 08/25/2023 HPV Vaccines Aged Out No longer [...] age to complete this topic Insurance [employer] [facility] MEDICAID [facility] MEDICARE Care Teams Irrigation Installation Specialist Relationship Specialty Start Date End Date Ravinder Wilkes MD [address] [place] [id number] PCP - General 10/03/20
== END 2025-04-11 23:59 ==
LOC: LAB.DROPOF 04-15 10:15
PROVIDERS: PCP Family Medicine; Visit Provider Student in an Organized Health Care Education/Training Program
DX: E11.9 Type 2 diabetes mellitus without complications (principal); I10 Essential (primary) hypertension
CPT/HCPCS: 80053; 83036